=== PATIENT | male | born 1965 | race African-American/Black ===

== ENCOUNTER 2016-08-31 13:48 | Emergency (ER) | payer SELFPAY ==
[2016-08-31] MEDS ORDERED: NITROGLYCERIN 0.4 MG/TAB 25 TAB/BOTTLE SL PRN (14:09)
--- NOTE | 2016-08-31 14:18 | ER Document Report ---
[id number] LEVEL OF CONSCIOUSNESS Notes: The patient is a 50-year-old male, past medical history hypertension, NIDDM, presents by EMS after he was tired earlier today and his girlfriend checked his blood sugar. His Accu-Chek read 500 and the girlfriend gave him 60 units of her insulin. She called 911. When the patient arrived to the ambulance, he began to have left-sided chest pain that is radiating to his left arm. He describes it as a pressure and he has never had this before. He denies nausea, vomiting, shortness of breath, fevers, back pain, leg swelling, rash or focal weakness. TRAVEL OUTSIDE OF THE [place] IN LAST 30 DAYS: No - Related Data Allergies/Adverse Reactions: No Known Allergies Allergy (Verified 10/05/15 09:57) Past Medical History - General Information source: Patient, Emergency Med Personnel - Social History Smoking Status: Current Every Day Smoker Family History: Reviewed & Not Pertinent - Past Medical History Cardiac Medical History: Reports: Hx Hypertension Endocrine Medical History: Reports: Hx Diabetes Mellitus Type 2 - Immunizations Hx Diphtheria, Pertussis, Tetanus Vaccination: No Review of Systems - Review of Systems Notes: REVIEW OF SYSTEMS: CONSTITUTIONAL: Denies fever, chills, or sweats. Denies recent illness. EENT: Denies eye, ear, throat, or mouth pain or symptoms. Denies nasal or sinus congestion. CARDIOVASCULAR: Chest pain, -syncope RESPIRATORY: Denies cough, cold, or chest congestion. Denies shortness of breath, difficulty breathing, or wheezing. GASTROINTESTINAL: Denies abdominal pain. Denies nausea, vomiting, or diarrhea. Denies constipation. GENITOURINARY: Denies difficulty urinating, painful urination, burning, frequency, or blood in urine. MUSCULOSKELETAL: Denies neck or back pain or joint pain or swelling. SKIN: Denies rash or skin lesions. HEMATOLOGIC: Denies easy bruising or bleeding. LYMPHATIC: Denies swollen, enlarged glands. NEUROLOGICAL: Denies altered mental status or loss of consciousness. Denies headache. Denies weakness or paralysis or loss of use of either side. Denies problems with gait or speech. Denies sensory or motor loss. PSYCHIATRIC: Denies anxiety or stress or depression. ALL OTHER SYSTEMS REVIEWED AND NEGATIVE. Physical Exam - Vital signs Vitals: Resp 10 L 08/31/16 14:01 BP 142/69, HR 88, RR 20, Pulse Ox 98%, BG 201 - Notes Notes: PHYSICAL EXAMINATION: GENERAL: In mild distress. HEAD: Atraumatic, normocephalic. EYES: Pupils equal round and reactive to light, extraocular movements intact, sclera anicteric, conjunctiva are normal. ENT: nares patent, oropharynx clear without exudates. Moist mucous membranes. NECK: Normal range of motion, supple without lymphadenopathy LUNGS: Breath sounds clear to auscultation bilaterally and equal. No wheezes rales or rhonchi. HEART: Regular rate and rhythm without murmurs ABDOMEN: Soft, nontender, normoactive bowel sounds. No guarding, no rebound. No masses appreciated. EXTREMITIES: Normal range of motion, no pitting or edema. No cyanosis. NEUROLOGICAL: Cranial nerves grossly intact. Normal speech, normal gait. Normal sensory, motor, and reflex exams. PSYCH: Normal mood, normal affect. SKIN: Warm, Dry, normal turgor, no rashes or lesions noted. Course - Re-evaluation Re-evalutation: Patient has [address] elevations in V2 and V3 with ST depression in lead 1 and T- wave changes in V5 and V6. No old EKG to compare. With multiple factors and concerning story, STEMI alert activated. Spoke to patient about risks and benefits of TPA and he consents to receive TPA. No contraindications at this time. Will transfer patient to [facility] for further evaluation and treatment with Interventional Cardiology. Spoke to the [facility] at [facility] and Dr. Christo Celeste has accepted patient. BG decreased from 500 to 200 to [address] patient on D5 gtt and continue Accu-Cheks every 15 minutes. Patient chest pain-free after TPA and on discharge out of the emergency room. - Vital Signs Vital signs: Temp Pulse Resp BP Pulse Ox 18 95/75 L 97 08/31/16 14:36 08/31/16 14:36 08/31/16 14:36 - Laboratory Result Diagrams: 08/31/16 14:10 08/31/16 14:10 Laboratory results interpreted by me: 08/31/16 08/31/16 08/31/16 14:10 14:10 14:10 RBC 6.41 H MCV 70 L MCH 23.1 L RDW 15.0 H PT Chloride 97 L Glucose 137 H POC Glucose Hemoglobin A1c % > 14.0 H Calcium 10.4 H AST 16 L 08/31/16 08/31/16 14:10 14:27 RBC MCV MCH RDW PT 11.1 L Chloride Glucose POC Glucose 147 H Hemoglobin A1c % Calcium AST - Diagnostic Test Radiology reviewed: Image reviewed, Reports reviewed Radiology results interpreted by me: NAD - EKG Interpretation by Me EKG shows normal: Sinus rhythm Rate: Normal Rhythm: NSR When compared to previous EKG there are: Previous EKG unavailable Additional EKG results interpreted by me: ST Elevations in V1-V3. Flipped T-waves in V5-V6. ST depression in I. Critical Care Note - Critical Care Note Total time excluding time spent on procedures (mins): 45 Discharge - Discharge Clinical Impression: STEMI (ST elevation myocardial infarction) Qualifiers: Involved coronary artery: other coronary artery Qualified Code(s): I21.29 - ST elevation (STEMI) myocardial infarction involving other sites Insulin overdose Qualifiers: Encounter type: initial encounter Injury intent: accidental or unintentional Qualified Code(s): T38.3X1A - Poisoning by insulin and oral hypoglycemic [ antidiabetic] drugs, accidental (unintentional), initial encounter Condition: Serious Disposition: [facility] Admitting Provider: Dr. Christo Celeste
[2016-08-31 14:24] LABS: HEMATOCRIT 44.6 % (37.9-51.0); HEMOGLOBIN 14.8 g/dL (13.5-17.0); HGB HCT DIFFERENCE -0.2; MEAN CORPUSCULAR HEMOGLOBIN 23.1 pg (27.0-33.4); MEAN CORPUSCULAR HGB CONC 33.2 g/dL (32.0-36.0); MEAN CORPUSCULAR VOLUME 70 fl (80-97); RED BLOOD COUNT 6.41 10^6/uL (4.35-5.55); WHITE BLOOD COUNT 10.3 10^3/uL (4.0-10.5)
[2016-08-31] MEDS ORDERED: DEXTROSE 5%-1/2 NORMAL SALINE 1,000 ML IV ONE (14:28)
[2016-08-31 14:40] LABS: PROTHROMBIN TIME 11.1 SEC (11.4-15.4)
[2016-08-31 14:41] LABS: PARTIAL THROMBOPLASTIN TIME 26.4 SEC (23.5-35.8)
[2016-08-31 14:43] VITALS: BP 95/75
[2016-08-31] MEDS ORDERED: ENOXAPARIN SODIUM INJ 150 MG/1 ML DISP.SYRIN SUBCUT SCH ×2 (14:45→22:00)
[2016-08-31 15:01] LABS: ALANINE AMINOTRANSFERASE 41 U/L (21-72); ALBUMIN 3.6 g/dL (3.5-5.0); ALKALINE PHOSPHATASE 113 U/L (38-126); ANION GAP 12 (5-19); ASPARTATE AMINO TRANSFERASE 16 U/L (17-59); BILIRUBIN,TOTAL 0.3 mg/dL (0.2-1.3); BLOOD UREA NITROGEN 12 mg/dL (7-20); CALCIUM 10.4 mg/dL (8.4-10.2); CARBON DIOXIDE 29 mmol/L (22-30); CHLORIDE 97 mmol/L (98-107); CREATINE KINASE 104 U/L (55-170); CREATININE RESULT 0.74 mg/dL (0.52-1.25); GLUCOSE 137 mg/dL (75-110); PHOSPHORUS 3.9 mg/dL (2.5-4.5); POTASSIUM 4.2 mmol/L (3.6-5.0); TOTAL PROTEIN 6.7 g/dL (6.3-8.2)
[2016-08-31 16:34] LABS: BASOPHILS % (MANUAL) 0 % (0-2); EOSINOPHILS % (MANUAL) 1 % (0-6); LYMPHOCYTES % (MANUAL) 45 % (13-45); TOTAL CELLS COUNTED 100
[2016-08-31 16:37] LABS: ANISOCYTOSIS SLIGHT; HYPOCHROMASIA 1+; MICROCYTOSIS 2+; SMUDGE CELLS PRESENT; TOXIC VACUOLATION PRESENT
[2016-08-31 16:38] LABS: PLATELET CLUMPS PRESENT
--- NOTE | 2016-08-31 17:34 | EKG REPORT ---
SEVERITY:- ABNORMAL ECG - SINUS RHYTHM NONSPECIFIC INTRAVENTRICULAR CONDUCTION DELAY PROBABLE LVH WITH SECONDARY REPOL ABNRM : Confirmed by: Malaika Blas 31-Aug-2016 17:34:06
--- NOTE | 2016-08-31 17:34 | EKG REPORT ---
SEVERITY:- ABNORMAL ECG - SINUS RHYTHM VENTRICULAR PREMATURE COMPLEX NONSPECIFIC T ABNORMALITIES, LATERAL LEADS BORDERLINE PROLONGED QT INTERVAL : Confirmed by: Malaika Blas 31-Aug-2016 17:34:24
--- NOTE | 2016-08-31 17:34 | EKG REPORT ---
SEVERITY:- ABNORMAL ECG - SINUS RHYTHM VENTRICULAR PREMATURE COMPLEX PROBABLE LEFT VENTRICULAR HYPERTROPHY ANTERIOR ST ELEVATION, PROBABLY DUE TO LVH : Confirmed by: Malaika Blas 31-Aug-2016 17:34:42
--- NOTE | 2016-08-31 17:36 | EKG REPORT ---
SEVERITY:- ABNORMAL ECG - SINUS RHYTHM NONSPECIFIC T ABNORMALITIES, LATERAL LEADS ST ELEVATION, CONSIDER ANTERIOR INJURY VS LVH : Confirmed by: Malaika Blas 31-Aug-2016 17:35:07
[2016-08-31] MEDS ORDERED: CLOPIDOGREL BISULFATE 300 MG TABLET ONE (18:11)
[2016-08-31] MEDS ORDERED: ENOXAPARIN SODIUM INJ 30 MG/0.3 ML DISP.SYRIN ONE (18:11)
[2016-08-31] MEDS ORDERED: NITROGLYCERIN 0.4 MG/TAB 25 TAB/BOTTLE ONE (18:11)
[2016-08-31] MEDS ORDERED: TENECTEPLASE INJ 50 MG KIT IV ONE (18:11)
[2016-08-31] MEDS ORDERED: ASPIRIN 81 MG TABLET, CHEWABLE ONE (18:11)
[2016-09-01] MEDS ORDERED: ASPIRIN 325 MG TABLET, ENT COATED PO SCH (10:00)
[2016-09-04 11:39] LABS: PATH REVIEW PATHOLOGIST REVIEWED
== END 2016-08-31 15:09 | disposition short-term general hospital (02) ==
LOC: ER 13:48
DX: T38.3X1A Poisoning by insulin and oral hypoglycemic [antidiabetic] drugs, accidental (unintentional), initial encounter (principal); I21.3 ST elevation (STEMI) myocardial infarction of unspecified site; E11.9 Type 2 diabetes mellitus without complications; I10 Essential (primary) hypertension; R07.89 Other chest pain; F17.200 Nicotine dependence, unspecified, uncomplicated
CPT/HCPCS: 93005 ×2; 99291; 96372; 96375; 96365; 36415; 82962; 82550; 84100; 85025; 85610; 85730; 80053; 84484; 83036; 71010; 93010; J3101; J3490; J1650

== ENCOUNTER → 2016-09-26 | Outpatient (CLI) | payer OTHER ==
[2016-09-26 08:28] LABS: ABSOLUTE BASOPHILS # (AUTO) 0.1 10^3/uL (0.0-0.2); ABSOLUTE EOSINOPHILS # (AUTO) 0.3 10^3/uL (0.0-0.6); ABSOLUTE LYMPHOCYTES (AUTO) 3.7 10^3/uL (0.5-4.7); ABSOLUTE MONOCYTES (AUTO) 0.5 10^3/uL (0.1-1.4); ABSOLUTE NEUT (AUTO) 4.6 10^3/uL (1.7-8.2); BASOPHILS % (AUTO) 0.6 % (0-2); EOSINOPHILS % (AUTO) 2.9 % (0-6); HEMATOCRIT 40.4 % (37.9-51.0); HGB HCT DIFFERENCE -1.4; LYMPHOCYTES % (AUTO) 40.8 % (13-45); MEAN CORPUSCULAR HEMOGLOBIN 22.4 pg (27.0-33.4); MEAN CORPUSCULAR HGB CONC 32.1 g/dL (32.0-36.0); MEAN CORPUSCULAR VOLUME 70 fl (80-97); MONOCYTES % (AUTO) 5.7 % (3-13); RED BLOOD COUNT 5.79 10^6/uL (4.35-5.55); WHITE BLOOD COUNT 9.1 10^3/uL (4.0-10.5)
[2016-09-26 08:45] LABS: ALANINE AMINOTRANSFERASE 25 U/L (21-72); ALBUMIN 3.9 g/dL (3.5-5.0); ALKALINE PHOSPHATASE 85 U/L (38-126); ANION GAP 11 (5-19); ASPARTATE AMINO TRANSFERASE 20 U/L (17-59); BILIRUBIN,TOTAL 0.6 mg/dL (0.2-1.3); BLOOD UREA NITROGEN 12 mg/dL (7-20); CALCIUM 9.9 mg/dL (8.4-10.2); CARBON DIOXIDE 28 mmol/L (22-30); CHLORIDE 104 mmol/L (98-107); CHOLESTEROL 140.92 mg/dL (0-200); Direct HDL 42 mg/dL (>40); GLUCOSE 110 mg/dL (75-110); POTASSIUM 4.5 mmol/L (3.6-5.0); SODIUM 142.9 mmol/L (137-145); TOTAL PROTEIN 6.8 g/dL (6.3-8.2); TRIGLYCERIDES 57 mg/dL (<150)
[2016-09-26 08:56] LABS: DIRECT LDL 87 mg/dL (<100)
--- NOTE | 2016-09-26 09:13 | EKG REPORT ---
SEVERITY:- ABNORMAL ECG - SINUS RHYTHM NONSPECIFIC INTRAVENTRICULAR CONDUCTION DELAY : Confirmed by: Malaika Blas 26-Sep-2016 09:12:27
== END ==
LOC: OD 07:03
DX: I10 Essential (primary) hypertension (principal); E11.9 Type 2 diabetes mellitus without complications
CPT/HCPCS: 36415; 80053; 80061; 83036; 84153; 84443; 85025; 93005; 93010

== ENCOUNTER 2017-10-11 17:16 | Emergency (ER) | payer OTHER ==
[2017-10-11 17:36] VITALS: BP 154/77
== END 2017-10-11 18:45 | disposition left against medical advice (07) ==
LOC: ER 17:16
DX: Z53.21 Procedure and treatment not carried out due to patient leaving prior to being seen by health care provider (principal); R51 Headache

== ENCOUNTER 2017-10-16 19:24 | Emergency (ER) | payer SELFPAY ==
--- NOTE | 2017-10-16 19:53 | RADIOLOGY REPORT (SQ) ---
EXAM DESCRIPTION: CT HEAD WITHOUT COMPLETED DATE/TIME: 10/16/2017 7:40 pm REASON FOR STUDY: STROKE ALERT COMPARISON: 04/03/2008 TECHNIQUE: Axial images acquired through the brain without intravenous contrast. Images reviewed wi th bone, brain and subdural windows. Images stored on PACS. All CT scanners at this facility use dose modulation, iterative reconstruction, and/or weight based d osing when appropriate to reduce radiation dose to as low as reasonably achievable (ALARA). [facility]: Dose Right [facility]: CareDose [facility]: Dose Right [facility]: Teradose 4D [facility]: [employer] RADIATION DOSE: mGy. LIMITATIONS: None. FINDINGS: VENTRICLES: Normal. CEREBRUM: No masses. No hemorrhage. No midline shift. Areas of low density in the white matter mos t likely due to chronic micro-vascular ischemic change, greatest in the right posterior temporal nolan on. CEREBELLUM: No masses. No hemorrhage. No alteration of density. No evidence for acute infarction. EXTRAAXIAL SPACES: Age-related involutional change. No fluid collections. No masses. ORBITS AND GLOBE: No intra- or extraconal masses. Normal contour of globe without masses. CALVARIUM: No fracture. PARANASAL SINUSES: No fluid or mucosal thickening. SOFT TISSUES: No mass or hematoma. OTHER: No other significant finding. IMPRESSION: No intracranial hemorrhage or mass effect.Areas of low density in the white matter most likely due to chronic micro-vascular ischemic change, greatest in the right posterior temporal region . EVIDENCE OF ACUTE STROKE: NO. TECHNICAL DOCUMENTATION: JOB ID: [id number] [place]-72 Quality ID # [id number]: Final reports with documentation of one or more dose reduction techniques (e.g., Au tomated exposure control, adjustment of the mA and/or kV according to patient size, use of iterative reconstruction technique) 2010 [employer]- All Rights Reserved
--- NOTE | 2017-10-16 19:53 | RADIOLOGY REPORT (SQ) ---
EXAM DESCRIPTION: CHEST SINGLE VIEW COMPLETED DATE/TIME: 10/16/2017 7:35 pm REASON FOR STUDY: STROKE ALERT COMPARISON: 08/31/2016 EXAM PARAMETERS: NUMBER OF VIEWS: One view. TECHNIQUE: Single frontal radiographic view of the chest acquired. RADIATION DOSE: NA LIMITATIONS: None. FINDINGS: LUNGS AND PLEURA: No opacities, masses or pneumothorax. No pleural effusion. MEDIASTINUM AND HILAR STRUCTURES: No masses. Contour normal. HEART AND VASCULAR STRUCTURES: Heart normal in size. Normal vasculature. BONES: No acute findings. HARDWARE: None in the chest. OTHER: No other significant finding. IMPRESSION: NO ACUTE RADIOGRAPHIC FINDING IN THE CHEST. TECHNICAL DOCUMENTATION: JOB ID: [id number] [place]-72 2010 [employer]- All Rights Reserved
[2017-10-16] MEDS ORDERED: KETOROLAC TROMETHAMINE INJ/PF 30 MG/1 ML SDV IV ONE (20:03)
[2017-10-16] MEDS ORDERED: DIPHENHYDRAMINE HCL 50 MG/ML VIAL IV ONE (20:03)
[2017-10-16] MEDS ORDERED: METOCLOPRAMIDE HCL INJ/PF 10 MG/2 ML SDV IV ONE (20:03)
[2017-10-16] MEDS ORDERED: ASPIRIN 325 MG TABLET PO ONE (20:03)
--- NOTE | 2017-10-16 20:06 | ER Document Report ---
ED Neuro Symptoms/Deficit - General Chief Complaint: Headache Stated Complaint: HEADACHE Time Seen by Provider: 10/16/17 19:48 Notes: The patient is a 51-year-old male, past medical history CAD with stents, presents with 3 days of intermittent left-sided headaches that are located behind his eyes that last about 3 hours and then will resolve. During some of these episodes, he will have mild left leg weakness that resolved after his headache improves. Today, he began to have his usual headache earlier today and then left arm and leg weakness at 1645, but this resolved prior to arrival. A concerned family member called 911. Patient denies current weakness, numbness, tingling, fevers, blurry vision, sudden onset of headache, neck pain, chest pain, SOB or back pain. TRAVEL OUTSIDE OF THE [place] IN LAST 30 DAYS: No - Related Data Allergies/Adverse Reactions: No Known Allergies Allergy (Verified 10/11/17 17:20) Past Medical History - General Information source: Patient - Social History Smoking Status: Unknown if Ever Smoked Family History: Reviewed & Not Pertinent - Past Medical History Cardiac Medical History: Reports: Hx Hypertension Endocrine Medical History: Reports: Hx Diabetes Mellitus Type 2 - Immunizations Hx Diphtheria, Pertussis, Tetanus Vaccination: No Review of Systems - Review of Systems Notes: REVIEW OF SYSTEMS: CONSTITUTIONAL: -fevers, -chills EENT: -eye pain, -difficulty swallowing, -nasal congestion CARDIOVASCULAR: -chest pain, -syncope. RESPIRATORY: -cough, -SOB GASTROINTESTINAL: -abdominal pain, -nausea, -vomiting, -diarrhea GENITOURINARY: -dysuria, -hematuria MUSCULOSKELETAL: -back pain, -neck pain SKIN: -rash or skin lesions. HEMATOLOGIC: -easy bruising or bleeding. LYMPHATIC: -swollen, enlarged glands. NEUROLOGICAL: -altered mental status or loss of consciousness, +headache, + transient left arm and leg weakness PSYCHIATRIC: -anxiety, -depression. ALL OTHER SYSTEMS REVIEWED AND NEGATIVE. Physical Exam - Vital signs Vitals: Resp Pulse Ox 15 98 10/16/17 19:47 10/16/17 19:47 - Notes Notes: PHYSICAL EXAMINATION: GENERAL: Well-appearing, well-nourished and in no acute distress. HEAD: Atraumatic, normocephalic. EYES: Pupils equal round and reactive to light, extraocular movements intact, sclera anicteric, conjunctiva are normal. ENT: nares patent, oropharynx clear without exudates. Moist mucous membranes. NECK: Normal range of motion, supple without lymphadenopathy LUNGS: Breath sounds clear to auscultation bilaterally and equal. No wheezes rales or rhonchi. HEART: Regular rate and rhythm without murmurs ABDOMEN: Soft, nontender, normoactive bowel sounds. No guarding, no rebound. No masses appreciated. EXTREMITIES: Normal range of motion, no pitting or edema. No cyanosis. NEUROLOGICAL: Cranial nerves grossly intact. Normal speech, normal gait. Normal sensory and motor exams. 5/5 in all 4 extremities. PSYCH: Normal mood, normal affect. SKIN: Warm, Dry, normal turgor, no rashes or lesions noted. Course - Re-evaluation Re-evalutation: Patient with several days of a left-sided headache and 3 hours of left arm and leg weakness that resolved on arrival to the ER. Patient is not a TPA candidate due to rapidly resolving symptoms. CT head obtained, which did not show any acute abnormalities, but did show evidence of old chronic insults. Attempted to obtain a MRI to assess for the presence of a TIA or to see if this is just a complex migraine, but patient refused MRI. ABCD2 score is 2, so he is safe for outpatient work-up. His headache slightly improved after medications and he is requesting discharge. With the intermittent headaches that are associated with his left arm and leg weakness, suspect a complex migraine. Instructed him to follow-up with his PMD and [facility]uerologist for further evaulation. - Vital Signs Vital signs: Temp Pulse Resp BP Pulse Ox 98.3 F 97 16 126/75 H 100 10/16/17 23:31 10/16/17 23:31 10/16/17 23:31 10/16/17 23:31 10/16/17 23:31 - Laboratory Result Diagrams: 10/16/17 19:02 10/16/17 19:02 Laboratory results interpreted by me: 10/16/17 10/16/17 19:02 19:02 Hgb 12.5 L MCV 72 L MCH 23.6 L RDW 15.9 H Seg Neutrophils % 38.2 L Lymphocytes % 52.6 H Absolute Lymphocytes 4.8 H Creatine Kinase 202 H - Diagnostic Test Radiology reviewed: Image reviewed, Reports reviewed Radiology results interpreted by me: CT Head: NAD MRI Head: Discharge - Discharge Clinical Impression: Headache Qualifiers: Headache type: unspecified Headache chronicity pattern: chronic headache Intractability: not intractable Qualified Code(s): R51 - Headache Condition: Stable Disposition: HOME, SELF-CARE Additional Instructions: HEADACHE: The physician does not feel that the headache you are experiencing has a serious underlying cause. Most headaches are due to emotional stress, with resultant muscle tension (tension headache). Occasionally, headaches are secondary to changes in the blood vessels of the scalp (vascular headache and migraine headache). Sometimes, a headache is the first symptom of another developing illness, such as a viral infection. You have no evidence of stroke, bleeding, meningitis, or other serious cause of your headache. The treatment of headaches varies with the severity and cause of the pain. Not all headaches need pain shots. In fact, there is evidence that using narcotics for headaches may make them worse in the long run. The physician will determine the therapy that's in your best interest. If you develop a fever, if the headache is different from any you've previously experienced, or if the headache progressively worsens, then call your physician at once or go to the emergency room. INTRAVENOUS COMPAZINE FOR HEADACHE: You have received therapy for headaches, using intravenous Compazine. This treatment is dramatically successful in relieving the headache in about 50 percent of cases. When it works, it provides a rapid method of eliminating the headache without resorting to narcotics (and the problems associated with them). Most patients still feel fully alert after the Compazine, but others may be slightly drowsy. It's best not to drive or work with machinery for six to eight hours. Do not take alcohol or other medication unless you discuss it with the doctor. If you develop tightness and spasms in your muscles, especially the neck and tongue, you should return. This is a side effect which can be treated. TORADOL INJECTION: You have been given an injection of ketorolac tromethamine (Toradol). This is an excellent, safe drug for pain control. It also has potent antiinflammatory action. You should have significant pain relief within about one hour. Toradol is not addicting and is non-sedating. It does not interfere with driving or work. Call or return if you develop itching, hives, shortness of breath, or rash. PAIN MEDICATION INJECTION: You have received an injection of a pain medication. You should experience significant pain relief within 45 minutes. This drug is a narcotic - - it will impair your judgement, slow your reaction time and make you sleepy ( as well as relieve your pain). Narcotics also can cause nausea. You should not drive, work with machinery, or perform any task requiring mental alertness until all effects of the medication are gone -- six to eight hours. Do not take any alcohol, or sedatives, and do not take any other medication without checking with your physician. ORAL NARCOTIC MEDICATION: You have been given a prescription for pain control. This medication is a narcotic. It's best taken with food, as nausea can result if taken on an empty stomach. Don't operate machinery or drive within six hours of taking this medication. Do not combine this medicine with alcohol, or with any medication which can cause sedation (such as cold tablets or sleeping pills) unless you get permission from the physician. Narcotics tend to cause constipation. If possible, drink plenty of fluids and eat a diet high in fiber and fruits. Please be aware that prescription narcotics also have the potential for abuse. People become addicted to these medications because of the general sense of wellbeing that they induce. This feeling along with a significant reduction in tension, anxiety, and aggression provides a stimulating seductive quality to these drugs. Once your pain is under control, we encourage you to discard your unused narcotics. FOLLOW-UP CARE: If you have been referred to a physician for follow-up care, call the physician s office for an appointment as you were instructed or within the next two days. If you experience worsening or a significant change in your symptoms, notify the physician immediately or return to the Emergency Department at any time for re-evaluation. Prescriptions: Butalb/Acetaminophen/Caffeine [Fioricet 50-300-40 mg Capsule] 1 cap PO Q4 PRN # 14 cap PRN Reason: Referrals: MAY ALDRIDGE MD [ACTIVE STAFF] - Follow up as needed
[2017-10-16 20:09] LABS: ABSOLUTE BASOPHILS # (AUTO) 0.1 10^3/uL (0.0-0.2); ABSOLUTE EOSINOPHILS # (AUTO) 0.2 10^3/uL (0.0-0.6); ABSOLUTE LYMPHOCYTES (AUTO) 4.8 10^3/uL (0.5-4.7); ABSOLUTE MONOCYTES (AUTO) 0.6 10^3/uL (0.1-1.4); ABSOLUTE NEUT (AUTO) 3.4 10^3/uL (1.7-8.2); BASOPHILS % (AUTO) 0.8 % (0-2); EOSINOPHILS % (AUTO) 1.8 % (0-6); HEMATOCRIT 38.2 % (37.9-51.0); HEMOGLOBIN 12.5 g/dL (13.5-17.0); LYMPHOCYTES % (AUTO) 52.6 % (13-45); MEAN CORPUSCULAR HEMOGLOBIN 23.6 pg (27.0-33.4); MEAN CORPUSCULAR HGB CONC 32.7 g/dL (32.0-36.0); MEAN CORPUSCULAR VOLUME 72 fl (80-97); MONOCYTES % (AUTO) 6.6 % (3-13); PLATELET COUNT 278 10^3/uL (150-450); RED BLOOD COUNT 5.31 10^6/uL (4.35-5.55); RED CELL DISTRIBUTION WIDTH 15.9 % (11.5-14.0); SEGMENTED NEUTROPHILS % (AUTO) 38.2 % (42-78); TOTAL CELLS COUNTED % (AUTO) 100 %
[2017-10-16 20:11] LABS: INTERNATIONAL RATION (INR) 0.84
[2017-10-16 20:12] LABS: PARTIAL THROMBOPLASTIN TIME 29.8 SEC (23.5-35.8)
[2017-10-16 20:15] LABS: PROTHROMBIN TIME 12.2 SEC (11.4-15.4)
[2017-10-16 20:16] LABS: ALANINE AMINOTRANSFERASE 45 U/L (21-72); ALBUMIN 4.1 g/dL (3.5-5.0); ALKALINE PHOSPHATASE 73 U/L (38-126); ANION GAP 12 (5-19); ASPARTATE AMINO TRANSFERASE 28 U/L (17-59); BILIRUBIN,DIRECT 0.1 mg/dL (0.0-0.4); BILIRUBIN,TOTAL 0.3 mg/dL (0.2-1.3); BLOOD UREA NITROGEN 15 mg/dL (7-20); CARBON DIOXIDE 26 mmol/L (22-30); CHLORIDE 104 mmol/L (98-107); CREATINE KINASE 202 U/L (55-170); GLUCOSE 103 mg/dL (75-110); POTASSIUM 4.3 mmol/L (3.6-5.0); SODIUM 142.2 mmol/L (137-145); TOTAL PROTEIN 6.4 g/dL (6.3-8.2)
[2017-10-16 20:28] LABS: CREATINE KINASE MB 2.06 ng/mL (<4.55); TROPONIN I 0.026 ng/mL
[2017-10-16] MEDS ORDERED: HALOPERIDOL LACTATE INJ 5 MG/1 ML VIAL IV ONE (21:00)
[2017-10-16] MEDS ORDERED: BUTALB/ACETAMINOPHEN/CAFFEINE 1 TAB EACH PO ONE (23:10)
[2017-10-16 23:34] VITALS: BP 126/75
--- NOTE | 2017-10-17 07:59 | EKG REPORT ---
SEVERITY:- ABNORMAL ECG - SINUS RHYTHM NONSPECIFIC INTRAVENTRICULAR CONDUCTION DELAY NONSPECIFIC ST-T CHANGES IN LATERAL LEADS : Confirmed by: Noel Jean MD 17-Oct-2017 07:58:28
== END 2017-10-16 23:43 | disposition home or self-care (01) ==
LOC: ER 19:24
DX: R51 Headache (principal); R53.1 Weakness; I10 Essential (primary) hypertension; I25.10 Atherosclerotic heart disease of native coronary artery without angina pectoris; E11.9 Type 2 diabetes mellitus without complications; Z95.5 Presence of coronary angioplasty implant and graft
CPT/HCPCS: 93005; 99285; 96374; 96375; 36415; 82553; 82550; 85025; 85610; 85730; 80053; 84484; 71045; 70450; 93010; J3490; J1200; J1630; J1885; J2765

== ENCOUNTER 2017-11-11 08:05 | Emergency (ER) | payer SELFPAY ==
[2017-11-11] MEDS ORDERED: ASPIRIN 81 MG TABLET, CHEWABLE PO ONE (09:12)
[2017-11-11 09:16] VITALS: BP 155/90
[2017-11-11 09:24] LABS: ABSOLUTE BASOPHILS # (AUTO) 0.1 10^3/uL (0.0-0.2); ABSOLUTE EOSINOPHILS # (AUTO) 0.2 10^3/uL (0.0-0.6); ABSOLUTE LYMPHOCYTES (AUTO) 3.3 10^3/uL (0.5-4.7); ABSOLUTE MONOCYTES (AUTO) 0.6 10^3/uL (0.1-1.4); ABSOLUTE NEUT (AUTO) 5.4 10^3/uL (1.7-8.2); EOSINOPHILS % (AUTO) 1.7 % (0-6); HEMATOCRIT 40.8 % (37.9-51.0); HEMOGLOBIN 13.3 g/dL (13.5-17.0); LYMPHOCYTES % (AUTO) 34.5 % (13-45); MEAN CORPUSCULAR HEMOGLOBIN 23.5 pg (27.0-33.4); MEAN CORPUSCULAR HGB CONC 32.6 g/dL (32.0-36.0); MEAN CORPUSCULAR VOLUME 72 fl (80-97); PLATELET COUNT 312 10^3/uL (150-450); RED BLOOD COUNT 5.65 10^6/uL (4.35-5.55); RED CELL DISTRIBUTION WIDTH 15.9 % (11.5-14.0); SEGMENTED NEUTROPHILS % (AUTO) 56.8 % (42-78); TOTAL CELLS COUNTED % (AUTO) 100 %; WHITE BLOOD COUNT 9.4 10^3/uL (4.0-10.5)
--- NOTE | 2017-11-11 09:46 | RADIOLOGY REPORT (SQ) ---
EXAM DESCRIPTION: CHEST SINGLE VIEW COMPLETED DATE/TIME: 11/11/2017 9:38 am REASON FOR STUDY: bed 16 cp COMPARISON: Chest films 10/16/2017, 08/31/2016, 08/29/2010 EXAM PARAMETERS: NUMBER OF VIEWS: One view. TECHNIQUE: Single frontal radiographic view of the chest acquired. RADIATION DOSE: NA LIMITATIONS: AP portable lordotic film FINDINGS: LUNGS AND PLEURA: No opacities, masses or pneumothorax. No pleural effusion. MEDIASTINUM AND HILAR STRUCTURES: No masses. Contour normal. HEART AND VASCULAR STRUCTURES: Heart normal in size. Normal vasculature. BONES: No acute findings. HARDWARE: None in the chest. OTHER: No other significant finding. IMPRESSION: NO ACUTE RADIOGRAPHIC FINDING IN THE CHEST. TECHNICAL DOCUMENTATION: JOB ID: [id number] [employer]- All Rights Reserved Reading location - IP/workstation name: [email or web address]
[2017-11-11] MEDS ORDERED: KETOROLAC TROMETHAMINE INJ/PF 30 MG/1 ML SDV IV ONE (09:47)
[2017-11-11] MEDS ORDERED: PROCHLORPERAZINE EDISYLATE INJ 10 MG/2 ML VIAL IV ONE (09:47)
[2017-11-11] MEDS ORDERED: ONDANSETRON HCL INJ/PF 4 MG/2 ML SDV IV ONE (09:57)
--- NOTE | 2017-11-11 10:01 | EKG REPORT ---
SEVERITY:- ABNORMAL ECG - SINUS RHYTHM NONSPECIFIC T ABNORMALITIES, LATERAL LEADS : Confirmed by: Malaika Blas 11-Nov-2017 10:01:02
[2017-11-11 10:09] LABS: ALANINE AMINOTRANSFERASE 32 U/L (21-72); ALBUMIN 3.9 g/dL (3.5-5.0); ALKALINE PHOSPHATASE 81 U/L (38-126); ANION GAP 12 (5-19); ASPARTATE AMINO TRANSFERASE 21 U/L (17-59); BILIRUBIN,DIRECT 0.1 mg/dL (0.0-0.4); BILIRUBIN,TOTAL 0.5 mg/dL (0.2-1.3); BLOOD UREA NITROGEN 11 mg/dL (7-20); CALCIUM 10.1 mg/dL (8.4-10.2); CARBON DIOXIDE 25 mmol/L (22-30); CHLORIDE 102 mmol/L (98-107); CREATINE KINASE 141 U/L (55-170); GLUCOSE 130 mg/dL (75-110); POTASSIUM 4.2 mmol/L (3.6-5.0); SODIUM 139.4 mmol/L (137-145); TOTAL PROTEIN 6.4 g/dL (6.3-8.2)
[2017-11-11 10:22] LABS: CREATINE KINASE MB 1.79 ng/mL (<4.55); TROPONIN I 0.024 ng/mL
--- NOTE | 2017-11-11 13:56 | RADIOLOGY REPORT (SQ) ---
EXAM DESCRIPTION: CT ABD/PELVIS WITH IV ORAL COMPLETED DATE/TIME: 11/11/2017 1:20 pm REASON FOR STUDY: epigastric pain, unable to have bm COMPARISON: AP chest 11/11/2017 TECHNIQUE: CT scan of the abdomen and pelvis performed using helical scanning technique with dynamic intravenous contrast injection. Patient drank oral contrast. Images reviewed with lung, soft tissue , and bone windows. Reconstructed coronal and sagittal MPR images reviewed. Delayed images for evalua tion of the urinary system also acquired. All images stored on PACS. All CT scanners at this facility use dose modulation, iterative reconstruction, and/or weight based d osing when appropriate to reduce radiation dose to as low as reasonably achievable (ALARA). [facility]: Dose Right [facility]: CareDose [facility]: Dose Right [facility]: Teradose 4D [facility]: [employer] CONTRAST TYPE AND DOSE: contrast/concentration: Isovue 370.00 mg/ml; Total Contrast Delivered: 100.0 ml; Total Saline Delivered: 62.0 ml RENAL FUNCTION: Creatinine 0.6 RADIATION DOSE: CT Rad equipment meets quality standard of care and radiation dose reduction techniq ues were employed. CTDIvol: 20.9 - 21.1 mGy. DLP: 2456 mGy-cm.. LIMITATIONS: None. FINDINGS: LOWER CHEST: No significant findings. No nodules or infiltrates. LIVER: Normal size. No masses. No dilated ducts. SPLEEN: Normal size. No focal lesions. PANCREAS: No masses. No significant calcifications. No adjacent inflammation or peripancreatic fluid collections. Pancreatic duct not dilated. GALLBLADDER: No identified stones by CT criteria. No inflammatory changes to suggest cholecystitis. ADRENAL GLANDS: No significant masses or asymmetry. RIGHT KIDNEY AND URETER: No solid masses. No significant calcifications. No hydronephrosis or hyd roureter. LEFT KIDNEY AND URETER: No solid masses. No significant calcifications. No hydronephrosis or hydr oureter. AORTA AND VESSELS: No aneurysm. No dissection. Renal arteries, SMA, celiac without stenosis. RETROPERITONEUM: No retroperitoneal adenopathy, hemorrhage or masses. BOWEL AND PERITONEAL CAVITY: Patient drank oral contrast. No CT evidence of bowel obstruction. No constipation. No masses or inflammatory changes. No free fluid or peritoneal masses. APPENDIX: Normal. PELVIS: No mass. No free fluid. Normal bladder. ABDOMINAL WALL: Fat containing umbilical hernia BONES: No significant or acute findings. OTHER: No other significant finding. IMPRESSION: NO SIGNIFICANT OR ACUTE FINDING IN THE ABDOMEN OR PELVIS ON CT SCAN WITH IV CONTRAST. TECHNICAL DOCUMENTATION: JOB ID: [id number] Quality ID # [id number]: Final reports with documentation of one or more dose reduction techniques (e.g., Au tomated exposure control, adjustment of the mA and/or kV according to patient size, use of iterative reconstruction technique) 2010 [employer]- All Rights Reserved Reading location - IP/workstation name: [email or web address]
[2017-11-11] MEDS ORDERED: METOCLOPRAMIDE HCL ORAL SOLN 10 MG/10 ML UDCUP PO ONE (14:21)
[2017-11-11] MEDS ORDERED: LIDOCAINE 2% VISCOUS SOLN 20 ML UDCUP PO ONE (14:21)
[2017-11-11] MEDS ORDERED: MAG HYDROX/AL HYDROX/SIMETH SUSP 30 ML UDCUP PO ONE (14:21)
--- NOTE | 2017-11-11 15:52 | ER Document Report ---
ED General - General Chief Complaint: Chest Pain Stated Complaint: CHEST PAIN Time Seen by Provider: 11/11/17 09:45 Mode of Arrival: Ambulatory Information source: Patient Notes: Patient is a 51-year-old male who presents to the ER today for upper abdominal pain in the middle of his abdomen 3 days. Patient admits to nausea but no vomiting. He admits to being constipated and has not been able to have a bowel movement in more than 4 days, until a small bowel movement this morning, did not see any blood in it. He does have a history of 2 heart attacks, last one about 6 months ago. Patient has stents placed from this. Patient denies any shortness of breath with his symptoms. Admits to acid reflux and heartburn with his symptoms. Denies ever having any surgeries on his abdomen. TRAVEL OUTSIDE OF THE [place] IN LAST 30 DAYS: No - Related Data Allergies/Adverse Reactions: No Known Allergies Allergy (Verified 11/11/17 08:06) Past Medical History - General Information source: Patient - Social History Smoking Status: Current Every Day Smoker Frequency of alcohol use: Rare Drug Abuse: Marijuana Family History: Reviewed & Not Pertinent Patient has suicidal ideation: No Patient has homicidal ideation: No - Past Medical History Cardiac Medical History: Reports: Hx Heart Attack - x2, Hx Hypertension Endocrine Medical History: Reports: Hx Diabetes Mellitus Type 1, Hx Diabetes Mellitus Type 2 Renal/ Medical History: Denies: Hx Peritoneal Dialysis - Immunizations Hx Diphtheria, Pertussis, Tetanus Vaccination: No Review of Systems - Review of Systems Constitutional: No symptoms reported EENT: No symptoms reported Cardiovascular: See HPI Respiratory: No symptoms reported Gastrointestinal: See HPI Genitourinary: No symptoms reported Male Genitourinary: No symptoms reported Musculoskeletal: No symptoms reported Skin: No symptoms reported Hematologic/Lymphatic: No symptoms reported Neurological/Psychological: No symptoms reported Physical Exam - Vital signs Vitals: Temp Pulse Resp BP Pulse Ox 98.3 F 77 20 142/86 H 97 11/11/17 08:18 11/11/17 08:18 11/11/17 08:18 11/11/17 08:18 11/11/17 08:18 - Notes Notes: PHYSICAL EXAMINATION: GENERAL: Well-appearing and in no acute distress. HEAD: Atraumatic, normocephalic. EYES: Pupils equal round and reactive to light, extraocular movements intact, sclera anicteric, conjunctiva are normal. ENT: ear canals without erythema or foreign body, TMs pearly chung with good bony landmarks, nares patent, oropharynx clear without exudates. Moist mucous membranes. NECK: Normal range of motion, supple without lymphadenopathy LUNGS: CTAB and equal. No wheezes rales or rhonchi. HEART: Regular rate and rhythm without murmurs ABDOMEN: Soft, epigastric tenderness. No guarding, no rebound BACK: no vertebral tenderness, normal ROM GI/: no CVA tenderness EXTREMITIES: Normal range of motion, no pitting edema. No cyanosis. NEUROLOGICAL: Cranial nerves grossly intact. Normal sensory/motor exams. PSYCH: Normal mood, normal affect. SKIN: Warm, Dry, normal turgor, no rashes or lesions noted Course - Re-evaluation Re-evalutation: 11/12/17 20:07 Lab work is unremarkable today including 2 sets of negative troponins. Patient feels 100% better after GI cocktail. CT of the abdomen with IV contrast negative for any acute pathology. EKG reveals a normal sinus rhythm without evidence of ischemia. Patient will go home with Carafate and Prilosec. - Vital Signs Vital signs: Temp Pulse Resp BP Pulse Ox 98.3 F 77 18 155/90 H 95 11/11/17 08:18 11/11/17 08:18 11/11/17 14:00 11/11/17 09:01 11/11/17 14:00 - Laboratory Result Diagrams: 11/11/17 09:00 11/11/17 09:36 Laboratory results interpreted by me: 11/11/17 11/11/17 09:00 09:36 RBC 5.65 H Hgb 13.3 L MCV 72 L MCH 23.5 L RDW 15.9 H Glucose 130 H Discharge - Discharge Clinical Impression: Epigastric pain N&V (nausea and vomiting) Qualifiers: Vomiting type: unspecified Vomiting Intractability: non-intractable Qualified Code(s): R11.2 - Nausea with vomiting, unspecified Condition: Stable Disposition: HOME, SELF-CARE Additional Instructions: Return immediately for any new or worsening symptoms. Follow up with primary care provider, call tomorrow to make followup appointment. Prescriptions: Omeprazole Magnesium [Prilosec Otc] 20 mg PO BID #40 tablet. Polyethylene Glycol 3350 [Miralax] 119 gm PO DAILY #1 powder Sucralfate [Carafate 1 gm Tablet] 1 gm PO ACHS #40 tablet
== END 2017-11-11 16:20 | disposition home or self-care (01) ==
LOC: ER 08:05
DX: K21.9 Gastro-esophageal reflux disease without esophagitis (principal); R10.13 Epigastric pain; R11.2 Nausea with vomiting, unspecified; F17.200 Nicotine dependence, unspecified, uncomplicated; F12.10 Cannabis abuse, uncomplicated; I10 Essential (primary) hypertension; E11.9 Type 2 diabetes mellitus without complications; I25.2 Old myocardial infarction; Z95.5 Presence of coronary angioplasty implant and graft
CPT/HCPCS: 93005; 99284; 36415; 82553; 82550; 85025; 80053; 84484; 71045; 74177; 93010; J2405

== ENCOUNTER 2018-03-10 08:53 | Emergency (ER) | payer SELFPAY ==
[2018-03-10] MEDS ORDERED: NORMAL SALINE 1000 ML 1,000 ML IV ONE (09:49)
[2018-03-10] MEDS ORDERED: MECLIZINE HCL 25 MG TABLET PO ONE (09:49)
--- NOTE | 2018-03-10 09:54 | ER Document Report ---
ED General - General Chief Complaint: General Weakness Stated Complaint: WEAKNESS Time Seen by Provider: 03/10/18 09:21 TRAVEL OUTSIDE OF THE [place] IN LAST 30 DAYS: No - HPI Notes: Patient is a 52-year-old male with a history of hypertension and insulin- dependent diabetes who presents to the ED complaining of nasal congestion/ discharge, postnasal drip, dry nonproductive cough, and intermittent dizziness 1-2 days. Patient states that his dizziness has since improved. Patient states that he has felt some generalized weakness without unilaterality. Patient does report a previous CVA about 3 months ago as well as a heart attack in the last year and a half. Patient states that his symptoms do not mimic that of when he had a CVA in the past. Patient states that he is eating and drinking without any difficulties. He has been urinating normally and having normal bowel movements. Patient states that he has been out of his insulin and has been having to use and neighbors insulin. Patient states that he has noticed his sugars being higher than normal. Patient states that he also feels dizziness when his sugars get too high. Denies any drug allergies. Denies any headache, fever, head injury, neck pain, changes in vision/speech/mentation/ hearing, sore throat, chest pain, palpitations, syncope, shortness of breath, wheeze, dyspnea, abdominal pain, nausea/vomiting/diarrhea, urinary retention, dysuria, hematuria, loss of control of bowel or bladder, numbness/tingling, saddle anesthesia, muscle paralysis/weakness, or rash. - Related Data Allergies/Adverse Reactions: No Known Allergies Allergy (Verified 11/11/17 08:06) Past Medical History - Social History Smoking Status: Unknown if Ever Smoked Family History: Reviewed & Not Pertinent Patient has suicidal ideation: No Patient has homicidal ideation: No - Past Medical History Cardiac Medical History: Reports: Hx Heart Attack - x2, Hx Hypertension Endocrine Medical History: Reports: Hx Diabetes Mellitus Type 1, Hx Diabetes Mellitus Type 2 Renal/ Medical History: Denies: Hx Peritoneal Dialysis - Immunizations Hx Diphtheria, Pertussis, Tetanus Vaccination: No Review of Systems - Review of Systems -: Yes All other systems reviewed and negative Physical Exam - Vital signs Vitals: Temp Pulse Resp BP Pulse Ox 97.6 F 68 18 164/87 H 98 03/10/18 08:57 03/10/18 08:57 03/10/18 08:57 03/10/18 08:57 03/10/18 08:57 - Notes Notes: PHYSICAL EXAMINATION: GENERAL: Well-appearing, well-nourished and in no acute distress. A&Ox4. Answers questions appropriately. HEAD: Atraumatic, normocephalic. EYES: Pupils equal round and reactive to light, extraocular movements intact, sclera anicteric, conjunctiva are normal. No nystagmus. Vis cain intact. ENT: EAC clear b/l. TM's intact b/l without erythema, fluid, or perforation. Nares patent and with clear discharge. oropharynx clear without exudates. No tonsilar hypertrophy or erythema. Moist mucous membranes. No sinus tenderness. NECK: Normal range of motion, supple without lymphadenopathy. No rigidity. No midline tenderness. LUNGS: Breath sounds clear to auscultation bilaterally and equal. No wheezes rales or rhonchi. HEART: Regular rate and rhythm without murmurs, rubs, gallops. ABDOMEN: Soft, nontender, nondistended abdomen. No guarding, no rebound. No masses appreciated. Normal bowel sounds present. No CVA tenderness bilaterally. Musculoskeletal: Ext b/l: FROM to passive/active. Strength 5+/5. No deficits noted. No bony tenderness of extremities. Back: FROM to passive/active. Strength 5+/5. No vertebral point tenderness, stepoffs, or deformities. Extremities: No cyanosis, clubbing, or edema b/l. Peripheral pulses 2+. Capillary refill less than 2 seconds. NEUROLOGICAL: NIH 0. GCS 15. Cranial nerves grossly intact. Normal speech, normal gait. Normal sensory, motor exams. Reflexes 2+ b/l. NOHELIA's negative. Pronator drift negative. Heel/cruz, finger/nose wnl. Rhomberg negative. PSYCH: Normal mood, normal affect. SKIN: Warm, Dry, normal turgor, no rashes or lesions noted. Course - Re-evaluation Re-evalutation: 03/10/18 14:45 Patient is an afebrile, well-hydrated 52-year-old male who presents to the ED with an acute URI, suspect viral, with resolved dizziness unspecified. Vitals are acceptable without any significant tachycardia, tachypnea, or hypoxia. PE is otherwise unremarkable for any focal neurological deficits. Patient is nontoxic-appearing and is tolerating p.o. without any difficulties. Pt is currently asymptomatic. CBC, CMP, EKGx2/cardiac enzymes 2, chest x-ray are all unremarkable for any acute pathology. Patient was given meclizine today as well. Patient has a heart score of 3, Wells score of 0. Patient does not have any chest pain, dyspnea, or shortness of breath. Patient's presentation and symptomatology creates low suspicion for ACS, PE, pneumothorax, pericarditis, dissection, respiratory compromise, severe dehydration, sepsis, meningitis, acute intracranial pathology, or other systemic emergent condition at this time. Patient is aware that his condition can change from initial presentation and he needs to monitor symptoms closely and seek medical attention for any acute changes. Pt is feeling better and would like to go home. Recommend conservative measures for symptoms. Recheck with your PCM in 2-3 days. Return to the ED with any worsening/concerning symptoms otherwise as reviewed in discharge. Patient is in agreement. - Vital Signs Vital signs: Temp Pulse Resp BP Pulse Ox 97.6 F 65 18 162/83 H 98 03/10/18 09:13 03/10/18 14:09 03/10/18 14:09 03/10/18 14:09 03/10/18 14:09 - Laboratory Result Diagrams: 03/10/18 09:05 03/10/18 09:05 Laboratory results interpreted by me: 03/10/18 03/10/18 03/10/18 09:05 09:05 10:00 Hgb 13.0 L MCV 71 L MCH 23.6 L RDW 16.2 H Lymphocytes % 45.9 H Glucose 143 H Urine Protein 100 H Ur Leukocyte Esterase TRACE H Discharge - Discharge Clinical Impression: Acute URI, Dizziness Condition: Stable Disposition: HOME, SELF-CARE Instructions: Dizziness ([facility]), Upper Respiratory Illness ([facility]) Additional Instructions: Maintain adequate fluid intake Take meds as directed tylenol/ibuprofen as needed over the counter cold medication as needed for symptoms Humidified air may help Wash your hands regularly Wear a mask when coughing F/u: with your PCM in 3-5 days for a recheck Return to the ED with any fever, worsening pain, chest pain, palpitations, syncope, worsening CASEY, neck pain/stiffness, shortness of breath, wheezing, drooling, trouble swallowing/breathing, abdominal pain, n/v/d, rash, or worsening/concerning symptoms otherwise. Prescriptions: Insulin Detemir [Levemir Flextouch] 24 unit SQ QHS #1 insuln.pen Meclizine HCl 25 mg PO BID #6 tablet Forms: Elevated Blood Pressure Referrals: [facility] [Provider Group] - Follow up as needed [facility] [Provider Group] - Follow up as needed
[2018-03-10 10:21] LABS: VENOUS BLOOD BASE EXCESS 4.2 mmol/L; VENOUS BLOOD HCO3 29.8 mmol/L (20-32); VENOUS BLOOD PCO2 48.5 mmHg (35-63); VENOUS BLOOD PH 7.41 (7.30-7.42)
[2018-03-10 10:22] LABS: ABSOLUTE EOSINOPHILS # (AUTO) 0.2 10^3/uL (0.0-0.6); ABSOLUTE LYMPHOCYTES (AUTO) 3.2 10^3/uL (0.5-4.7); ABSOLUTE MONOCYTES (AUTO) 0.5 10^3/uL (0.1-1.4); ABSOLUTE NEUT (AUTO) 3.1 10^3/uL (1.7-8.2); BASOPHILS % (AUTO) 0.4 % (0-2); EOSINOPHILS % (AUTO) 2.6 % (0-6); HEMATOCRIT 39.3 % (37.9-51.0); LYMPHOCYTES % (AUTO) 45.9 % (13-45); MEAN CORPUSCULAR HEMOGLOBIN 23.6 pg (27.0-33.4); MEAN CORPUSCULAR VOLUME 71 fl (80-97); MONOCYTES % (AUTO) 7.3 % (3-13); PLATELET COUNT 289 10^3/uL (150-450); RED BLOOD COUNT 5.51 10^6/uL (4.35-5.55); RED CELL DISTRIBUTION WIDTH 16.2 % (11.5-14.0); SEGMENTED NEUTROPHILS % (AUTO) 43.8 % (42-78); TOTAL CELLS COUNTED % (AUTO) 100 %; WHITE BLOOD COUNT 7.1 10^3/uL (4.0-10.5)
[2018-03-10 10:27] LABS: APPEARANCE,URINE CLEAR; BILIRUBIN,URINE NEGATIVE (NEGATIVE); COLOR,URINE YELLOW; GLUCOSE, URINE NEGATIVE (NEGATIVE); KETONES,URINE NEGATIVE (NEGATIVE); LEUKOCYTE ESTERASE,URINE TRACE (NEGATIVE); NITRITE,URINE NEGATIVE (NEGATIVE); PROTEIN,URINE 100 mg/dL (NEGATIVE); URINE SPECIFIC GRAVITY 1.021; UROBILINOGEN,URINE NEGATIVE mg/dL (<2.0)
[2018-03-10 10:34] LABS: ALANINE AMINOTRANSFERASE 34 U/L (21-72); ALBUMIN 3.8 g/dL (3.5-5.0); ALKALINE PHOSPHATASE 71 U/L (38-126); ANION GAP 10 (5-19); ASPARTATE AMINO TRANSFERASE 25 U/L (17-59); BILIRUBIN,DIRECT 0.4 mg/dL (0.0-0.4); BILIRUBIN,TOTAL 0.6 mg/dL (0.2-1.3); BLOOD UREA NITROGEN 11 mg/dL (7-20); CALCIUM 9.6 mg/dL (8.4-10.2); CARBON DIOXIDE 30 mmol/L (22-30); CHLORIDE 103 mmol/L (98-107); CREATINE KINASE 130 U/L (55-170); GLUCOSE 143 mg/dL (75-110); POTASSIUM 4.4 mmol/L (3.6-5.0); SODIUM 143.4 mmol/L (137-145)
--- NOTE | 2018-03-10 10:34 | RADIOLOGY REPORT (SQ) ---
EXAM DESCRIPTION: CHEST SINGLE VIEW COMPLETED DATE/TIME: 03/10/2018 10:21 am REASON FOR STUDY: cough COMPARISON: October 2017 EXAM PARAMETERS: NUMBER OF VIEWS: One view. TECHNIQUE: Single frontal radiographic view of the chest acquired. RADIATION DOSE: NA LIMITATIONS: None. FINDINGS: LUNGS AND PLEURA: No opacities, masses or pneumothorax. No pleural effusion. MEDIASTINUM AND HILAR STRUCTURES: No masses. Contour normal. HEART AND VASCULAR STRUCTURES: Heart normal in size. Normal vasculature. BONES: No acute findings. HARDWARE: None in the chest. OTHER: No other significant finding. IMPRESSION: NO ACUTE RADIOGRAPHIC FINDING IN THE CHEST. TECHNICAL DOCUMENTATION: JOB ID: [id number] [employer]- All Rights Reserved Reading location - IP/workstation name: [email or web address]
[2018-03-10 10:46] LABS: CREATINE KINASE MB 1.93 ng/mL (<4.55); TROPONIN I 0.02 ng/mL
[2018-03-10 14:10] VITALS: BP 162/83
--- NOTE | 2018-03-10 19:20 | EKG REPORT ---
SEVERITY:- ABNORMAL ECG - SINUS RHYTHM NONSPECIFIC INTRAVENTRICULAR CONDUCTION DELAY PROBABLE LEFT VENTRICULAR HYPERTROPHY : Confirmed by: Malaika Blas 10-Mar-2018 19:19:34
--- NOTE | 2018-03-10 19:20 | EKG REPORT ---
SEVERITY:- BORDERLINE ECG - SINUS RHYTHM BORDERLINE T WAVE ABNORMALITIES BORDERLINE ST ELEVATION, ANTERIOR LEADS : Confirmed by: Malaika Blas 10-Mar-2018 19:19:43
== END 2018-03-10 15:03 | disposition home or self-care (01) ==
LOC: ER 08:53
DX: J06.9 Acute upper respiratory infection, unspecified (principal); R42 Dizziness and giddiness; R09.81 Nasal congestion; I10 Essential (primary) hypertension; I25.2 Old myocardial infarction; E11.9 Type 2 diabetes mellitus without complications; Z79.4 Long term (current) use of insulin
CPT/HCPCS: 93005; 99285; 96360; 36415; 87086; 82553; 82550; 85025; 80053; 81001; 84484; 82803; 71045; 93010; J7030

== ENCOUNTER 2018-10-18 06:35 | Observation (INO) | payer SELFPAY ==
[2018-10-18] MEDS ORDERED: ASPIRIN 81 MG TABLET, CHEWABLE PO ONE (06:39)
[2018-10-18 07:20] LABS: ABSOLUTE EOSINOPHILS # (AUTO) 0.2 10^3/uL (0.0-0.6); ABSOLUTE MONOCYTES (AUTO) 0.5 10^3/uL (0.1-1.4); ABSOLUTE NEUT (AUTO) 2.9 10^3/uL (1.7-8.2); BASOPHILS % (AUTO) 0.6 % (0-2); EOSINOPHILS % (AUTO) 3.2 % (0-6); HEMATOCRIT 41.4 % (37.9-51.0); HEMOGLOBIN 13.6 g/dL (13.5-17.0); MEAN CORPUSCULAR HEMOGLOBIN 23.3 pg (27.0-33.4); MEAN CORPUSCULAR HGB CONC 32.8 g/dL (32.0-36.0); MEAN CORPUSCULAR VOLUME 71 fl (80-97); MONOCYTES % (AUTO) 6.5 % (3-13); PLATELET COUNT 271 10^3/uL (150-450); RED BLOOD COUNT 5.83 10^6/uL (4.35-5.55); RED CELL DISTRIBUTION WIDTH 15.5 % (11.5-14.0); SEGMENTED NEUTROPHILS % (AUTO) 37.7 % (42-78); TOTAL CELLS COUNTED % (AUTO) 100 %; WHITE BLOOD COUNT 7.7 10^3/uL (4.0-10.5)
[2018-10-18 07:32] LABS: INTERNATIONAL RATION (INR) 0.89; PROTHROMBIN TIME 12.5 SEC (11.4-15.4)
[2018-10-18 07:38] LABS: ALANINE AMINOTRANSFERASE 25 U/L (21-72); ALBUMIN 4.1 g/dL (3.5-5.0); ALKALINE PHOSPHATASE 89 U/L (38-126); ANION GAP 11 (5-19); ASPARTATE AMINO TRANSFERASE 20 U/L (17-59); BILIRUBIN,DIRECT 0.3 mg/dL (0.0-0.4); BILIRUBIN,TOTAL 0.5 mg/dL (0.2-1.3); BLOOD UREA NITROGEN 11 mg/dL (7-20); CALCIUM 9.7 mg/dL (8.4-10.2); CARBON DIOXIDE 28 mmol/L (22-30); CHLORIDE 101 mmol/L (98-107); CREATINE KINASE 167 U/L (55-170); GLUCOSE 176 mg/dL (75-110); POTASSIUM 4.7 mmol/L (3.6-5.0); SODIUM 139.6 mmol/L (137-145)
--- NOTE | 2018-10-18 07:45 | RADIOLOGY REPORT (SQ) ---
Chest single view on 10/18/2018 at 7:30 AM CLINICAL INDICATION: Chest pain COMPARISON: 03/10/2018 FINDINGS: Heart is upper limits normal for size. Hilar and mediastinal contours are within normal limits. The lungs are clear. Pulmonary vascularity is within normal limits. IMPRESSION: No acute disease.
[2018-10-18 07:49] LABS: CREATINE KINASE MB 2.33 ng/mL (<4.55); TROPONIN I 0.029 ng/mL
--- NOTE | 2018-10-18 07:53 | ER Document Report ---
ED Cardiac - General Chief Complaint: Chest Pain > 30 Stated Complaint: CHEST PAIN Time Seen by Provider: 10/18/18 07:10 Mode of Arrival: Medic Information source: Patient Notes: Patient is a 52-year-old male who presents the emergency department chief complaint of chest pain. Patient arrives via ambulance. Patient is alert, oriented states that his chest pain started approximately 430 this morning when he woke up to use the bathroom. He describes it as a sharp stabbing intermittent midsternal chest pain which has now resolved. Patient does have a history of MD in the past. Patient reports associated shortness of breath but denies any nausea, vomiting or diaphoresis. Patient denies any radiation of the pain. Patient does not have a local primary care provider, states he is seen by cardiology in [place]. Patient does have a history of hypertension, states he has not taken his medication several months. TRAVEL OUTSIDE OF THE [place] IN LAST 30 DAYS: No - Related Data Allergies/Adverse Reactions: No Known Allergies Allergy (Verified 10/18/18 06:45) Past Medical History - General Information source: Patient - Social History Smoking Status: Current Every Day Smoker Frequency of alcohol use: None Drug Abuse: None Family History: Reviewed & Not Pertinent Patient has suicidal ideation: No Patient has homicidal ideation: No - Past Medical History Cardiac Medical History: Reports: Hx Heart Attack - x2, Hx Hypertension Endocrine Medical History: Reports: Hx Diabetes Mellitus Type 1, Hx Diabetes Mellitus Type 2 Renal/ Medical History: Denies: Hx Peritoneal Dialysis - Immunizations Hx Diphtheria, Pertussis, Tetanus Vaccination: No Review of Systems - Review of Systems Constitutional: No symptoms reported EENT: No symptoms reported Cardiovascular: Chest pain, Palpitations Respiratory: Short of breath Gastrointestinal: No symptoms reported. denies: Nausea, Vomiting Genitourinary: No symptoms reported Male Genitourinary: No symptoms reported Musculoskeletal: No symptoms reported Skin: No symptoms reported Hematologic/Lymphatic: No symptoms reported Neurological/Psychological: No symptoms reported Physical Exam - Vital signs Vitals: Pulse Ox 97 10/18/18 06:39 - Notes Notes: PHYSICAL EXAMINATION: GENERAL: Well-appearing, well-nourished and in no acute distress. HEAD: Atraumatic, normocephalic. EYES: Pupils equal round and reactive to light, extraocular movements intact, sclera anicteric, conjunctiva are normal. ENT: Nares patent, oropharynx clear without exudates. Moist mucous membranes. NECK: Normal range of motion, supple without lymphadenopathy LUNGS: Breath sounds clear to auscultation bilaterally and equal. No wheezes rales or rhonchi. HEART: Regular rate and rhythm without murmurs ABDOMEN: Soft, nontender, nondistended abdomen. No guarding, no rebound. No masses appreciated. Musculoskeletal: Normal range of motion, no pitting or edema. No cyanosis. NEUROLOGICAL: Cranial nerves grossly intact. Normal speech, normal gait. Normal sensory, motor exams PSYCH: Normal mood, normal affect. SKIN: Warm, Dry, normal turgor, no rashes or lesions noted. Course - Re-evaluation Re-evalutation: Chest x-ray is negative with no evidence of cardiomegaly, infiltrates or pneumothorax. CBC and CMP are unremarkable. EKG reveals a sinus rhythm, rate of 72, QTc 460, normal axis with no ST segment elevations or depressions. EKG is unchanged from previous on file from 03/10/18. Initial troponin is 0.029. Patient remains chest pain-free while in the emergency department we will be drawing a delta troponin at 1030. 10/18/18 12:01 Repeat troponin 0.024. Patient has a heart score of 4. Patient is chest pain- free. 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 10/18/18 12:13 I did call hospitalist to request admission for this patient. Spoke with Kassie Bay NP. She is going to consult cardiology prior to accepting the patient. 10/18/18 13:00 Patient accepted for admission by Kassie Bay NP. - Vital Signs Vital signs: Temp Pulse Resp BP Pulse Ox 98.2 F 22 H 147/92 H 98 10/18/18 06:45 10/18/18 11:31 10/18/18 11:31 10/18/18 10:01 - Laboratory Result Diagrams: 10/18/18 06:05 10/18/18 06:05 Laboratory results interpreted by me: 10/18/18 10/18/18 06:05 06:05 RBC 5.83 H MCV 71 L MCH 23.3 L RDW 15.5 H Seg Neutrophils % 37.7 L Lymphocytes % 52.0 H Glucose 176 H Discharge - Discharge Clinical Impression: Chest pain Qualifiers: Chest pain type: unspecified Qualified Code(s): R07.9 - Chest pain, unspecified Hypertension Qualifiers: Hypertension type: unspecified Qualified Code(s): I10 - Essential (primary) hypertension Condition: Stable Disposition: ADMITTED OBSERVATION Admitting Provider: Hospitalist Unit Admitted: Telemetry
--- NOTE | 2018-10-18 08:09 | EKG REPORT ---
SEVERITY:- ABNORMAL ECG - SINUS RHYTHM NONSPECIFIC T ABNORMALITIES, LATERAL LEADS : Confirmed by: Noel Jean MD 18-Oct-2018 08:08:44
[2018-10-18] MEDS ORDERED: NITROGLYCERIN 0.4 MG/TAB 25 TAB/BOTTLE SL PRN (13:24)
[2018-10-18] MEDS ORDERED: MORPHINE SULFATE 10 MG/ML INJ IV PRN (13:24)
[2018-10-18] MEDS ORDERED: METOPROLOL TARTRATE PF/INJ 5 MG/5 ML SDV IV PRN (13:32)
[2018-10-18] MEDS ORDERED: HYDRALAZINE HCL INJ/PF 20 MG/1 ML SDV IV PRN (13:32)
--- NOTE | 2018-10-18 14:31 | PDOC H&P ---
History of Present Illness Admission Date/PCP: 10/18/18 13:08 Patient complains of: CHEST PAIN History of Present Illness: ESE ROSE is a 52 year old male with a PMH of DM, CVA, HTN, HLD, HI. He presented to [facility] with a complaint of chest pain. Patient reports that he woke up this morning and upon walking to the bathroom he began experiencing midsternal, sharp, nonradiating chest pain. The patient reports he took sublingual nitroglycerin tablets (total of 3) and his chest pain was resolved. Upon arrival to the hospital, the patient's EKG showed NSR with no evidence of ischemia or infarct. Cardiac enzymes WNL. All other laboratory studies, including CBC and chemistry, are normal. CXR is WNL, no evidence of cardiopulmonary pathology. Upon assessment, he denies chest pain at the time of interview. S1-S2. Lung sounds clear to auscultation. The patient is super morbidly obese. Pulses are palpable in upper and lower extremities, there is no evidence of peripheral edema or JVD. Of note, the patient is without health insurance. He refuses to follow-up with computer systems analyst in [place] because he states it is too far away. Additionally, he cannot afford his medications. Plan to admit to hospitalist service for chest pain observation. Past Medical History Cardiac Medical History: Reports: Coronary Artery Disease, Myocardial Infarction - x2, Hypertension Endocrine Medical History: Reports: Diabetes Mellitus Type 2 Past Surgical History Past Surgical History: Reports: Other - TRACH PLACEMENT 20YRS AGO Social History Information Source: Patient Lives with: Alone Smoking Status: Current Every Day Smoker Cigarettes Packs Per Day: 1 Number of Years Smokin Frequency of Alcohol Use: Rare - Advance Directive Resuscitation Status: Full Code Family History Family History: Reviewed & Not Pertinent Parental Family History Reviewed: Yes Children Family History Reviewed: Yes Sibling(s) Family History Reviewed.: Yes Medication/Allergy Allergies/Adverse Reactions: No Known Allergies Allergy (Verified 10/18/18 06:45) Review of Systems All systems: reviewed and no additional remarkable complaints except as stated Physical Exam Vital Signs: Temp Pulse Resp BP Pulse Ox 98.2 F 15 148/95 H 96 10/18/18 06:45 10/18/18 13:49 10/18/18 13:50 10/18/18 14:00 General appearance: PRESENT: morbidly obese Head exam: PRESENT: atraumatic Eye exam: PRESENT: conjunctiva pink, PERRLA Mouth exam: PRESENT: moist, tongue midline Neck exam: PRESENT: full ROM Respiratory exam: PRESENT: clear to auscultation ade, symmetrical, unlabored Cardiovascular exam: PRESENT: RRR, +S1, +S2 Pulses: PRESENT: normal radial pulses, normal dorsalis pedis pul Vascular exam: PRESENT: normal capillary refill GI/Abdominal exam: PRESENT: normal bowel sounds, soft. ABSENT: tenderness Rectal exam: PRESENT: deferred Extremities exam: PRESENT: full ROM, pedal edema - TRACE EDEMA Musculoskeletal exam: PRESENT: ambulatory, full ROM Neurological exam: PRESENT: alert, awake, oriented to person, oriented to place, oriented to time, oriented to situation Psychiatric exam: PRESENT: appropriate affect Skin exam: PRESENT: dry, intact, normal color Results Laboratory Results: 10/18/18 06:05 10/18/18 06:05 10/18/18 10/18/18 06:05 06:05 WBC 7.7 RBC 5.83 H Hgb 13.6 Hct 41.4 MCV 71 L MCH 23.3 L MCHC 32.8 RDW 15.5 H Plt Count 271 Seg Neutrophils % 37.7 L Lymphocytes % 52.0 H Monocytes % 6.5 Eosinophils % 3.2 Basophils % 0.6 Absolute Neutrophils 2.9 Absolute Lymphocytes 4.0 Absolute Monocytes 0.5 Absolute Eosinophils 0.2 Absolute Basophils 0.0 Sodium 139.6 Potassium 4.7 Chloride 101 Carbon Dioxide 28 Anion Gap 11 BUN 11 Creatinine 0.80 Est GFR ( Amer) > 60 Est GFR (Non-Af Amer) > 60 Glucose 176 H Calcium 9.7 Total Bilirubin 0.5 AST 20 ALT 25 Alkaline Phosphatase 89 Total Protein 7.0 Albumin 4.1 10/18/18 10/18/18 10/18/18 06:05 06:05 10:40 Creatine Kinase 167 CK-MB (CK-2) 2.33 Troponin I 0.029 0.024 Impressions: Chest X-Ray 10/18/18 06:39 IMPRESSION: No acute disease. Status: Imported from PACS Assessment & Plan - Diagnosis (1) Chest pain Qualifiers: Chest pain type: unspecified Qualified Code(s): R07.9 - Chest pain, unspecified Is this a current diagnosis for this admission?: Yes Plan: Sharp, midsternal, nonradiating chest pain Relieved with sublingual nitroglycerin EKG shows NSR, no ischemia or infarct CXR benign Initial cardiac enzymes negative, plan to trend every 6 hours Repeak EKG in AM No plan for echocardiogram or stress test Initiate beta-pedro, DEVYN inhibitor and aspirin therapy (2) Hypertension Qualifiers: Hypertension type: unspecified Qualified Code(s): I10 - Essential (primary) hypertension Is this a current diagnosis for this admission?: Yes Plan: PMH of HTN Noncompliant with medications due to financial reasons Resume DEVYN inhibitor, beta-pedro, aspirin therapy PRN hydralazine and Lopressor IV for SBP>170 (3) Diabetes Qualifiers: Diabetes mellitus type: type 2 Diabetes mellitus complication status: without complication Is this a current diagnosis for this admission?: Yes Plan: PMH of diabetes Check hemoglobin A1c in a.m. Diabetic diet Accu-Cheks AC at bedtime Humalog sliding scale insulin (4) Super obese Is this a current diagnosis for this admission?: Yes Plan: weight management with diet - Time Time Spent: 30 to 50 Minutes Medications reviewed and adjusted accordingly: Yes Anticipated discharge: Home - Inpatient Certification Based on my medical assessment, after consideration of the patient's comorbidities, presenting symptoms, or acuity I expect that the services needed warrant INPATIENT care.: Yes I certify that my determination is in accordance with my understanding of Medicare's requirements for reasonable and necessary INPATIENT services [42 CFR 412.3e].: Yes Medical Necessity: Need For Continuous Telemetry Monitoring, Risk of Complication if Not Cared For in Hospital - Plan Summary Plan Summary: ADMIT TO MED-TELE. TREND CARDIAC ENZYMES. RESUME REGIMEN OF ANTI-HTN
[2018-10-18 14:51] LABS: CREATINE KINASE MB 1.85 ng/mL (<4.55); TROPONIN I 0.016 ng/mL
[2018-10-18] MEDS ORDERED: DEXTROSE 40% GEL 15 GM TUBE PO PRN ×2 (15:34)
[2018-10-18] MEDS ORDERED: DEXTROSE 50%-WATER 25 GM/50 ML DISP.SYRIN IV PRN ×2 (15:34)
[2018-10-18] MEDS ORDERED: GLUCAGON,HUMAN RECOMB 1 MG INJ IM PRN (15:34)
[2018-10-18] MEDS: INSULIN LISPRO 100 UNIT/ML 3 ML VIAL SUBCUT SCH ×2 (17:32→21:57)
[2018-10-18] MEDS ORDERED: NICOTINE 21 MG/24 HR PATCH.TD24 TD ONE (19:00)
[2018-10-18 20:34] LABS: CREATINE KINASE MB 1.79 ng/mL (<4.55); TROPONIN I 0.028 ng/mL
[2018-10-18] MEDS: METOPROLOL TARTRATE 25 MG TABLET PO SCH (21:55)
[2018-10-18] MEDS: FAMOTIDINE 20 MG TABLET PO SCH (21:57)
[2018-10-18] MEDS ORDERED: ATORVASTATIN CALCIUM 20 MG TABLET PO SCH (22:00)
[2018-10-19 02:19] LABS: ABSOLUTE BASOPHILS # (AUTO) 0.1 10^3/uL (0.0-0.2); ABSOLUTE EOSINOPHILS # (AUTO) 0.2 10^3/uL (0.0-0.6); ABSOLUTE LYMPHOCYTES (AUTO) 3.7 10^3/uL (0.5-4.7); ABSOLUTE MONOCYTES (AUTO) 0.6 10^3/uL (0.1-1.4); ABSOLUTE NEUT (AUTO) 3.7 10^3/uL (1.7-8.2); BASOPHILS % (AUTO) 1.1 % (0-2); EOSINOPHILS % (AUTO) 2.9 % (0-6); HEMATOCRIT 39.3 % (37.9-51.0); HEMOGLOBIN 12.9 g/dL (13.5-17.0); LYMPHOCYTES % (AUTO) 44.5 % (13-45); MEAN CORPUSCULAR HEMOGLOBIN 23.2 pg (27.0-33.4); MEAN CORPUSCULAR HGB CONC 32.7 g/dL (32.0-36.0); MEAN CORPUSCULAR VOLUME 71 fl (80-97); MONOCYTES % (AUTO) 7.3 % (3-13); PLATELET COUNT 242 10^3/uL (150-450); RED BLOOD COUNT 5.53 10^6/uL (4.35-5.55); RED CELL DISTRIBUTION WIDTH 15.6 % (11.5-14.0); SEGMENTED NEUTROPHILS % (AUTO) 44.2 % (42-78); TOTAL CELLS COUNTED % (AUTO) 100 %; WHITE BLOOD COUNT 8.4 10^3/uL (4.0-10.5)
[2018-10-19 02:28] LABS: ANION GAP 8 (5-19); BLOOD UREA NITROGEN 14 mg/dL (7-20); CALCIUM 9.6 mg/dL (8.4-10.2); CARBON DIOXIDE 27 mmol/L (22-30); CHLORIDE 103 mmol/L (98-107); GLUCOSE 171 mg/dL (75-110); PHOSPHORUS 4.4 mg/dL (2.5-4.5); POTASSIUM 4.5 mmol/L (3.6-5.0)
[2018-10-19 02:40] LABS: CREATINE KINASE MB 1.47 ng/mL (<4.55); TROPONIN I 0.03 ng/mL
[2018-10-19] MEDS: INSULIN LISPRO 100 UNIT/ML 3 ML VIAL SUBCUT SCH ×2 (08:15→11:59)
--- NOTE | 2018-10-19 08:54 | EKG REPORT ---
SEVERITY:- ABNORMAL ECG - SINUS RHYTHM NONSPECIFIC INTRAVENTRICULAR CONDUCTION DELAY PROBABLE LEFT VENTRICULAR HYPERTROPHY : Confirmed by: Noel Jean MD 19-Oct-2018 08:53:29
[2018-10-19] MEDS ORDERED: ASPIRIN 81 MG TABLET, ENT COATED PO SCH (10:00)
[2018-10-19] MEDS ORDERED: LISINOPRIL 5 MG TABLET PO SCH (10:00)
[2018-10-19] MEDS: METOPROLOL TARTRATE 25 MG TABLET PO SCH (10:02)
[2018-10-19] MEDS: FAMOTIDINE 20 MG TABLET PO SCH (10:03)
[2018-10-19] MEDS ORDERED: METOPROLOL TARTRATE 25 MG TABLET PO ONE (11:17)
[2018-10-19 12:50] VITALS: BP 149/84
--- NOTE | 2018-10-19 16:33 | PDOC DISCHARGE SUMMARY ---
General - Admit/Disc Date/PCP Admission Date/Primary Care Provider: 10/18/18 13:08 Discharge Date: 10/19/18 - Discharge Diagnosis (1) Chest pain Is this a current diagnosis for this admission?: Yes (2) Hypertension Is this a current diagnosis for this admission?: Yes (3) Diabetes Is this a current diagnosis for this admission?: Yes (4) Super obese Is this a current diagnosis for this admission?: Yes - Additional Information Resuscitation Status: Full Code Discharge Diet: As Tolerated Discharge Activity: Activity As Tolerated Prescriptions: Aspirin [Ecotrin 81 mg EC Tablet] 81 mg PO DAILY #30 tabec Lisinopril [Prinivil 10 mg Tablet] 10 mg PO DAILY #30 tablet Metoprolol Tartrate [Lopressor 25 mg Tablet] 25 mg PO Q12 #30 tablet Simvastatin 20 mg PO AC #30 tablet Home Medications: Aspirin [Ecotrin 81 mg EC Tablet] 81 mg PO DAILY #30 tabec 10/19/18 Lisinopril [Prinivil 10 mg Tablet] 10 mg PO DAILY #30 tablet 10/19/18 Metoprolol Tartrate [Lopressor 25 mg Tablet] 25 mg PO Q12 #30 tablet 10/19/18 Simvastatin 20 mg PO AC #30 tablet 10/19/18 History of Present Illness History of Present Illness: ESE ROSE is a 52 year old male with a PMH of DM, CVA, HTN, HLD, WA. He presented to [facility] with a complaint of chest pain. Patient reports that he woke up this morning and upon walking to the bathroom he began experiencing midsternal, sharp, nonradiating chest pain. The patient reports he took sublingual nitroglycerin tablets (total of 3) and his chest pain was resolved. Upon arrival to the hospital, the patient's EKG showed NSR with no evidence of ischemia or infarct. Cardiac enzymes WNL. All other laboratory studies, including CBC and chemistry, are normal. CXR is WNL, no evidence of cardiopulmonary pathology. Upon assessment, he denies chest pain at the time of interview. S1-S2. Lung sounds clear to auscultation. The patient is super morbidly obese. Pulses are palpable in upper and lower extremities, there is no evidence of peripheral edema or JVD. Of note, the patient is without health insurance. He refuses to follow-up with [facility] in [place] because he states it is too far away. Additionally, he cannot afford his medications. Plan to admit to hospitalist service for chest pain observation. Hospital Course Hospital Course: 52 y.o. super morbidly obese male with a past medical history of WA, DM, HTN, HL D. The patient was admitted to [facility] for chest pain observation. The patient's EKG showed NSR with no evidence of ischemia or infarct. Initial cardiac enzymes WNL. Serial EKGs and serial cardiac enzymes continue to be normal. Discussed the patient's case with fumigator and sterilizer, Dr. Rahman, who felt the patient did not warrant an echocardiogram or stress test. The patient's blood pressure was me dically managed. He did not report any subsequent episodes of chest pain during his hospitalization. On hospital day #2, case management was contacted about assisting the patient in getting his blood pressure medications at a discounted rate. Fortunately, his beta pedro, DEVYN inhibitor and statin medication were all on the $4 list at [facility]. Additionally, aspirin is available at [facility] for less than $1. The patient stated he could afford his medications. When showcase maker offered to have the hospital cover the cost of his medications, the patient declined. The patient was discharged on hospital day #2 with [facility] For further information regarding this patient's hospitalization, please refer to the EMR. Physical Exam Vital Signs: Temp Pulse Resp BP Pulse Ox 98.4 F 70 19 149/84 H 98 10/19/18 14:45 10/19/18 14:45 10/19/18 14:45 10/19/18 14:45 10/19/18 14:45 Intake & Output 10/18/18 10/19/18 10/20/18 06:59 06:59 06:59 Intake Total 600 Balance 600 Weight 149.2 kg Results Laboratory Results: 10/19/18 02:08 10/19/18 02:08 10/19/18 10/19/18 02:08 02:08 WBC 8.4 RBC 5.53 Hgb 12.9 L Hct 39.3 MCV 71 L MCH 23.2 L MCHC 32.7 RDW 15.6 H Plt Count 242 Seg Neutrophils % 44.2 Lymphocytes % 44.5 Monocytes % 7.3 Eosinophils % 2.9 Basophils % 1.1 Absolute Neutrophils 3.7 Absolute Lymphocytes 3.7 Absolute Monocytes 0.6 Absolute Eosinophils 0.2 Absolute Basophils 0.1 Sodium 138.0 Potassium 4.5 Chloride 103 Carbon Dioxide 27 Anion Gap 8 BUN 14 Creatinine 0.87 Est GFR ( Amer) > 60 Est GFR (Non-Af Amer) > 60 Glucose 171 H Calcium 9.6 Phosphorus 4.4 10/18/18 10/18/18 10/18/18 06:05 06:05 10:40 Creatine Kinase 167 CK-MB (CK-2) 2.33 Troponin I 0.029 0.024 10/18/18 10/18/18 10/19/18 14:02 19:56 02:08 Creatine Kinase CK-MB (CK-2) 1.85 1.79 1.47 Troponin I 0.016 0.028 0.030 Impressions: Chest X-Ray 10/18/18 06:39 IMPRESSION: No acute disease. Qualifiers - * PATIENT BEING DISCHARGED WITH ANY OF THE FOLLOWING DIAGNOSIS: No
[2018-10-19] MEDS ORDERED: NICOTINE 21 MG/24 HR PATCH.TD24 TD SCH (18:00)
[2018-10-19] MEDS ORDERED: METOPROLOL TARTRATE 25 MG TABLET PO SCH (22:00)
== END 2018-10-19 14:40 | disposition home or self-care (01) ==
LOC: ER 06:35 → EH 13:08 → 4S 14:12
PROVIDERS: ADMIT Internal Medicine; ATTEND Internal Medicine
DX: R07.89 Other chest pain (principal); I10 Essential (primary) hypertension; E11.9 Type 2 diabetes mellitus without complications; E66.01 Morbid (severe) obesity due to excess calories; I25.10 Atherosclerotic heart disease of native coronary artery without angina pectoris; F17.210 Nicotine dependence, cigarettes, uncomplicated; I25.2 Old myocardial infarction; R06.02 Shortness of breath; R00.2 Palpitations; E78.5 Hyperlipidemia, unspecified; Z79.82 Long term (current) use of aspirin; Z79.899 Other long term (current) drug therapy; Z86.73 Personal history of transient ischemic attack (TIA), and cerebral infarction without residual deficits; Z91.14 Patient's other noncompliance with medication regimen; Z59.6 Low income
CPT/HCPCS: 93005 ×2; 99285; 36415 ×2; 82553 ×2; 82962 ×2; 82550; 84100; 85025 ×2; 85610; 80048; 80053; 84484 ×2; 71045; 93010 ×2; G0378 ×3; J1815 ×2

== ENCOUNTER 2019-05-19 13:56 | Emergency (ER) | payer MEDICAID ==
[2019-05-19 14:53] LABS: ABSOLUTE BASOPHILS # (AUTO) 0.1 10^3/uL (0.0-0.2); ABSOLUTE EOSINOPHILS # (AUTO) 0.2 10^3/uL (0.0-0.6); ABSOLUTE LYMPHOCYTES (AUTO) 3.1 10^3/uL (0.5-4.7); ABSOLUTE MONOCYTES (AUTO) 0.5 10^3/uL (0.1-1.4); ABSOLUTE NEUT (AUTO) 2.6 10^3/uL (1.7-8.2); BASOPHILS % (AUTO) 0.8 % (0-2); EOSINOPHILS % (AUTO) 3.7 % (0-6); HEMATOCRIT 41.4 % (37.9-51.0); HEMOGLOBIN 13.2 g/dL (13.5-17.0); LYMPHOCYTES % (AUTO) 47.7 % (13-45); MEAN CORPUSCULAR HEMOGLOBIN 22.9 pg (27.0-33.4); MEAN CORPUSCULAR HGB CONC 31.8 g/dL (32.0-36.0); MEAN CORPUSCULAR VOLUME 72 fl (80-97); PLATELET COUNT 248 10^3/uL (150-450); RED BLOOD COUNT 5.74 10^6/uL (4.35-5.55); RED CELL DISTRIBUTION WIDTH 16.7 % (11.5-14.0); SEGMENTED NEUTROPHILS % (AUTO) 39.8 % (42-78); TOTAL CELLS COUNTED % (AUTO) 100 %; WHITE BLOOD COUNT 6.5 10^3/uL (4.0-10.5)
[2019-05-19 15:12] LABS: ALKALINE PHOSPHATASE 72 U/L (38-126); ANION GAP 8 (5-19); ASPARTATE AMINO TRANSFERASE 20 U/L (17-59); BILIRUBIN,DIRECT 0.1 mg/dL (0.0-0.4); BILIRUBIN,TOTAL 0.3 mg/dL (0.2-1.3); BLOOD UREA NITROGEN 16 mg/dL (7-20); CALCIUM 9.9 mg/dL (8.4-10.2); CARBON DIOXIDE 31 mmol/L (22-30); CHLORIDE 101 mmol/L (98-107); CREATINE KINASE 132 U/L (55-170); GLUCOSE 120 mg/dL (75-110); POTASSIUM 3.9 mmol/L (3.6-5.0)
[2019-05-19 15:22] LABS: CREATINE KINASE MB 1.45 ng/mL (<4.55)
[2019-05-19 15:32] LABS: TROPONIN I < 0.012 ng/mL
--- NOTE | 2019-05-19 16:19 | RADIOLOGY REPORT (SQ) ---
EXAM DESCRIPTION: CT HEAD WITHOUT COMPLETED DATE/TIME: 05/19/2019 4:06 pm REASON FOR STUDY: ams COMPARISON: CT of the a head without contrast from 10/16/2017. TECHNIQUE: Axial images acquired through the brain without intravenous contrast. Images reviewed wi th bone, brain and subdural windows. Images stored on PACS. All CT scanners at this facility use dose modulation, iterative reconstruction, and/or weight based d osing when appropriate to reduce radiation dose to as low as reasonably achievable (ALARA). [facility]: Dose Right [facility]: CareDose [facility]: Dose Right [facility]: Teradose 4D [facility]: [place] RADIATION DOSE: CT Rad equipment meets quality standard of care and radiation dose reduction techniq ues were employed. CTDIvol: 53.2 mGy. DLP: 964 mGy-cm. mGy. LIMITATIONS: None. FINDINGS: The confluent areas of hypoattenuation within the supratentorial periventricular and subco rtical white matter are stable and could represent the sequela of chronic microvascular ischemia. Th e focal areas of hypoattenuation within the basal ganglia and thalamic nuclei are also stable and cou ld represent chronic lacunar infarcts or prominent Virchow Max spaces. There is no acute intracranial hemorrhage, vascular territorial infarct, extra-axial fluid collection , mass effect or midline shift. There is no effacement of the cerebral sulci or basal subarachnoid c isterns. The [place]-white matter differentiation is preserved. The caliber of the ventricles is conco rdant with the degree of sulcation are unchanged from 10/16/2017. There is no fracture of the calvarium. The paranasal sinuses and the mastoid air cells are clear. T he orbits and globes are intact. IMPRESSION: Sequela of chronic ischemia without a superimposed acute intracranial abnormality. EVIDENCE OF ACUTE STROKE: NO. COMMENT: Quality ID # [id number]: Final reports with documentation of one or more dose reduction techniques (e.g., Automated exposure control, adjustment of the mA and/or kV according to patient size, use of iterative reconstruction technique) TECHNICAL DOCUMENTATION: JOB ID: [id number] [employer]- All Rights Reserved Reading location - IP/workstation name: [email or web address]
[2019-05-19 16:26] LABS: APPEARANCE,URINE SLIGHTLY-CLOUDY; BILIRUBIN,URINE NEGATIVE (NEGATIVE); COLOR,URINE YELLOW; GLUCOSE, URINE NEGATIVE (NEGATIVE); KETONES,URINE NEGATIVE (NEGATIVE); LEUKOCYTE ESTERASE,URINE TRACE (NEGATIVE); NITRITE,URINE NEGATIVE (NEGATIVE); PROTEIN,URINE 30 mg/dL (NEGATIVE); URINE SPECIFIC GRAVITY 1.024; UROBILINOGEN,URINE NEGATIVE mg/dL (<2.0)
--- NOTE | 2019-05-19 18:11 | ER Document Report ---
ED Dizziness/Weakness - General Chief Complaint: General Weakness Stated Complaint: ALTERED MENTAL STATUS Time Seen by Provider: 05/19/19 14:45 Mode of Arrival: Medic Information source: Patient TRAVEL OUTSIDE OF THE [place] IN LAST 30 DAYS: No - HPI Notes: Patient presents with weakness. Family called paramedics today because they state that the patient was outside in the chair and they could not wake him up. Here patient states that he just feels weak. Medics states when they arrived patient was awake and alert and oriented x4. There is no known history of syncope or passing out. It is unclear why family was unable to wake patient. Patient denies any pain. He denies feeling short of breath. He states that no vomiting or diarrhea. He states he just feels tired would like to go home and go to sleep. Symptoms were mild. Nothing appeared to make them better or worse. There is no no radiation of the symptoms. They apparently were cons tant. - Related Data Allergies/Adverse Reactions: No Known Allergies Allergy (Verified 10/18/18 06:45) Past Medical History - General Information source: Patient - Social History Smoking Status: Current Every Day Smoker Frequency of alcohol use: None Drug Abuse: Marijuana Family History: Reviewed & Not Pertinent Patient has suicidal ideation: No Patient has homicidal ideation: No - Past Medical History Cardiac Medical History: Reports: Hx Coronary Artery Disease, Hx Heart Attack - x2, Hx Hypercholesterolemia, Hx Hypertension Endocrine Medical History: Reports: Hx Diabetes Mellitus Type 1, Hx Diabetes Mellitus Type 2 Renal/ Medical History: Denies: Hx Peritoneal Dialysis Psychiatric Medical History: Denies: Hx Depression Past Surgical History: Reports: Hx Cardiac Surgery - stents, Other - TRACH PLACEMENT 20YRS AGO - Immunizations Hx Diphtheria, Pertussis, Tetanus Vaccination: No Review of Systems - Review of Systems Constitutional: Malaise, Weakness. denies: Chills, Fever Cardiovascular: denies: Chest pain, Palpitations Respiratory: denies: Cough, Short of breath Gastrointestinal: denies: Diarrhea, Vomiting -: Yes All other systems reviewed and negative Physical Exam - Vital signs Vitals: Temp Pulse Resp BP Pulse Ox 97.2 F 66 16 138/73 H 97 05/19/19 14:00 05/19/19 14:00 05/19/19 14:00 05/19/19 14:00 05/19/19 14:00 - Neurological Cognition: Normal Orientation: AAOx4 [place] Coma Scale Eye Opening: Spontaneous [place] Coma Scale Verbal: Oriented [place] Coma Scale Motor: Obeys Commands [place]tan Coma Scale Total: 15 Speech: Normal Cranial nerves: Normal Cerebellar coordination: No: Finger-nose rhombey, Truncal ataxia Motor strength normal: LUE, RUE, LLE, RLE Additional motor exam normals: Equal document imaging specialist. No: Pronator drift Course - Re-evaluation Re-evalutation: 05/19/19 18:09 Paramedics were called because patient was unarousable. However medics state the patient was alert and oriented x4 for them. Here patient has had no significant alteration of mental status. He states he feels weak however vital signs been normal. EKG and laboratories are unremarkable. Head CT shows no evidence of any acute process. At this time I think the patient is stable to follow-up as an outpatient. His urine does show a mild urinary tract infection for which I will give him antibiotics. - Vital Signs Vital signs: Temp Pulse Resp BP Pulse Ox 97.2 F 66 16 138/73 H 97 05/19/19 14:00 05/19/19 14:00 05/19/19 14:00 05/19/19 14:00 05/19/19 14:00 - Laboratory Result Diagrams: 05/19/19 14:30 05/19/19 14:30 Laboratory results interpreted by me: 05/19/19 05/19/19 05/19/19 14:30 14:30 15:30 RBC 5.74 H Hgb 13.2 L MCV 72 L MCH 22.9 L MCHC 31.8 L RDW 16.7 H Lymph % (Auto) 47.7 H Seg Neutrophils % 39.8 L Carbon Dioxide 31 H Glucose 120 H Urine Protein 30 H Ur Leukocyte Esterase TRACE H - Diagnostic Test Radiology reviewed: Image reviewed, Reports reviewed - EKG Interpretation by Nh EKG shows normal: Sinus rhythm Rate: Bradycardia - 58 Rhythm: Other - sinus oseas [place]/QRS: IVCD Discharge - Discharge Clinical Impression: Weakness Condition: Stable Disposition: HOME, SELF-CARE Instructions: Weakness ([facility]) Additional Instructions: Please call your primary care physician as soon as possible to arrange follow-up
[2019-05-19 18:28] VITALS: BP 150/80
--- NOTE | 2019-05-20 11:01 | EKG REPORT ---
SEVERITY:- ABNORMAL ECG - SINUS RHYTHM NONSPECIFIC INTRAVENTRICULAR CONDUCTION DELAY : Confirmed by: Malaika Blas 20-May-2019 11:00:25
== END 2019-05-19 18:30 | disposition home or self-care (01) ==
LOC: ER 13:56
DX: R53.1 Weakness (principal); N39.0 Urinary tract infection, site not specified; R53.81 Other malaise; R00.1 Bradycardia, unspecified; F12.10 Cannabis abuse, uncomplicated; F17.200 Nicotine dependence, unspecified, uncomplicated; I25.10 Atherosclerotic heart disease of native coronary artery without angina pectoris; I10 Essential (primary) hypertension; E11.9 Type 2 diabetes mellitus without complications; Z95.5 Presence of coronary angioplasty implant and graft
CPT/HCPCS: 36415; 70450; 80053; 81001; 82550; 82553; 84484; 85025; 93005; 93010; 99285

== ENCOUNTER 2019-06-04 10:14 | Day surgery (SDC) | payer MEDICAID ==
[2019-06-04] MEDS ORDERED: PROPOFOL INJ 200 MG/20 ML VIAL IV ONE ×2 (11:33→14:03)
--- NOTE | 2019-06-04 13:01 | EKG REPORT ---
SEVERITY:- ABNORMAL ECG - SINUS RHYTHM NONSPECIFIC INTRAVENTRICULAR CONDUCTION DELAY : Confirmed by: Noel Jean MD 04-Jun-2019 13:01:28
--- NOTE | 2019-06-04 15:27 | Operative Report ---
Operative Report DATE OF SURGERY: 06/04/19 Operative Report: The risks, benefits and alternatives of the procedure including the risk of bleeding, perforation requiring surgery have been explained to the patient in detail and informed consent is obtained. Patient is taken back to the endoscopy suite and placed in the left, lateral decubital position. Timeout was called. Propofol medication is administered. Rectal examination is done which did not reveal any masses, tears or fissures. An Olympus videoscope was introduced into the patient's rectum. The scope was then carefully advanced all the way to the cecum. Cecum was identified by the usual anatomical landmarks including the ileocecal valve as well as the appendiceal office. Photodocumentation is obtained the scope was then sequentially pulled back via the various segments of the colon including the ascending colon, hepatic flexure, transverse colon, splenic flexure, descending colon finding to the rectosigmoid portions of the colon. Retroflexion maneuvers performed. PREOPERATIVE DIAGNOSIS: Colorectal cancer screening POSTOPERATIVE DIAGNOSIS: Multiple polyps noted. All of them are fairly large. There are 3 noted in the transverse colon all of them removed via snare polypectomy. Because of the large base of 1 of the polyps in the transverse colon and Endo Clip was used to reduce the risk of post polypectomy bleeding. There are 2 descending colon polyps removed via snare polypectomy. There was a sigmoid polyp that was removed via snare polypectomy and again due to the large placed 2 endoclips were placed to reduce the risk of post polypectomy bleeding. Rectal polyp that was removed via snare polypectomy and retrieved. Internal hemorrhoids. Extended procedure time greater than 1 hour OPERATION: Colonoscopy with snare polypectomy SURGEON: SAUNDRA MARAVILLA ANESTHESIA: LMAC TISSUE REMOVED OR ALTERED: As noted above. COMPLICATIONS: None. ESTIMATED BLOOD LOSS: None. INTRAOPERATIVE FINDINGS: As noted above. PROCEDURE: Patient tolerated the procedure well. No immediate postprocedure complications are noted. Patient is discharged in good condition. Discharge date 06/04/2019. Discharge diet: Regular. Discharge activity: Regular. 2 to 3-week follow-up to discuss findings. Patient is instructed to call the office or proceed to the emergency room should there be any further problems or questions. 1 year surveillance colonoscopy.
[2019-06-04 15:37] VITALS: BP 151/96
== END 2019-06-04 15:13 | disposition home or self-care (01) ==
LOC: OROUT 10:14
PROVIDERS: ATTEND Internal Medicine Gastroenterology
DX: Z12.11 Encounter for screening for malignant neoplasm of colon (principal); D12.3 Benign neoplasm of transverse colon; D12.6 Benign neoplasm of colon, unspecified; D12.8 Benign neoplasm of rectum; Z87.891 Personal history of nicotine dependence; J45.909 Unspecified asthma, uncomplicated; I10 Essential (primary) hypertension; E11.9 Type 2 diabetes mellitus without complications
CPT/HCPCS: 45385; 82962; 88305 ×2; 93005; 93010; 00811; J2704; 811

== ENCOUNTER 2020-07-25 14:59 | Inpatient (IN) | payer MEDICAID ==
--- NOTE | 2020-07-25 15:26 | RADIOLOGY REPORT (SQ) ---
EXAM DESCRIPTION: CHEST SINGLE VIEW IMAGES COMPLETED DATE/TIME: 07/25/2020 3:19 pm REASON FOR STUDY: STROKE ALERT COMPARISON: 10/18/2018 EXAM PARAMETERS: NUMBER OF VIEWS: One view. TECHNIQUE: Single frontal radiographic view of the chest acquired. RADIATION DOSE: NA LIMITATIONS: Low lung volumes. FINDINGS: LUNGS AND PLEURA: No opacities, masses or pneumothorax. No pleural effusion. MEDIASTINUM AND HILAR STRUCTURES: No masses. Contour normal. HEART AND VASCULAR STRUCTURES: Heart normal in size. Normal vasculature. BONES: No acute findings. HARDWARE: None in the chest. OTHER: No other significant finding. IMPRESSION: Negative chest allowing for low lung volumes. TECHNICAL DOCUMENTATION: JOB ID: [id number] 2010 [employer]- All Rights Reserved Reading location - IP/workstation name: [email or web address]
--- NOTE | 2020-07-25 15:31 | RADIOLOGY REPORT (SQ) ---
EXAM DESCRIPTION: CT HEAD WITHOUT IMAGES COMPLETED DATE/TIME: 07/25/2020 3:16 pm REASON FOR STUDY: STROKE ALERT COMPARISON: 05/19/2019 TECHNIQUE: Axial images acquired through the brain without intravenous contrast. Images reviewed wi th bone, brain and subdural windows. Additional sagittal and coronal reconstructions were generated. Images stored on PACS. All CT scanners at this facility use dose modulation, iterative reconstruction, and/or weight based d osing when appropriate to reduce radiation dose to as low as reasonably achievable (ALARA). [facility]: Dose Right [facility]: CareDose [facility]: Dose Right [facility]: Teradose 4D [facility]: [employer] RADIATION DOSE: mGy. LIMITATIONS: None. FINDINGS: VENTRICLES: Prominent. CEREBRUM: No masses. No hemorrhage. No midline shift. Areas of low density in the white matter mos t likely due to chronic micro-vascular ischemic change. No evidence for acute infarction. CEREBELLUM: No masses. No hemorrhage. No alteration of density. No evidence for acute infarction. EXTRAAXIAL SPACES: Mild age-related involutional change. No fluid collections. No masses. ORBITS AND GLOBE: No intra- or extraconal masses. Normal contour of globe without masses. CALVARIUM: No fracture. PARANASAL SINUSES: No fluid or mucosal thickening. SOFT TISSUES: No mass or hematoma. OTHER: No other significant finding. IMPRESSION: Moderate chronic changes of atrophy and microvascular disease. No acute intracranial ev ent. EVIDENCE OF ACUTE STROKE: NO. COMMENT: Pertinent positive or negative findings of the imaging study reported as a CRITICAL EXAM nikolai MEJIA MD at15:23 on 07/25/2020. Category of Critical Exam: Stroke alert. TECHNICAL DOCUMENTATION: JOB ID: [id number] Quality ID # [id number]: Final reports with documentation of one or more dose reduction techniques (e.g., Au tomated exposure control, adjustment of the mA and/or kV according to patient size, use of iterative reconstruction technique) 2010 [employer]- All Rights Reserved Reading location - IP/workstation name: [email or web address]
[2020-07-25 15:40] LABS: ABSOLUTE BASOPHILS # (AUTO) 0.1 10^3/uL (0.0-0.2); ABSOLUTE EOSINOPHILS # (AUTO) 0.2 10^3/uL (0.0-0.6); ABSOLUTE LYMPHOCYTES (AUTO) 3.3 10^3/uL (0.5-4.7); ABSOLUTE MONOCYTES (AUTO) 0.7 10^3/uL (0.1-1.4); ABSOLUTE NEUT (AUTO) 3.9 10^3/uL (1.7-8.2); BASOPHILS % (AUTO) 1.7 % (0-2); HEMATOCRIT 40.1 % (37.9-51.0); HEMOGLOBIN 12.8 g/dL (13.5-17.0); LYMPHOCYTES % (AUTO) 39.6 % (13-45); MEAN CORPUSCULAR HEMOGLOBIN 22.9 pg (27.0-33.4); MEAN CORPUSCULAR VOLUME 72 fl (80-97); MONOCYTES % (AUTO) 8.1 % (3-13); PLATELET COUNT 237 10^3/uL (150-450); RED CELL DISTRIBUTION WIDTH 15.9 % (11.5-14.0); SEGMENTED NEUTROPHILS % (AUTO) 47.6 % (42-78); TOTAL CELLS COUNTED % (AUTO) 100 %; WHITE BLOOD COUNT 8.2 10^3/uL (4.0-10.5)
--- NOTE | 2020-07-25 15:44 | ER Document Report ---
ED Neuro Symptoms/Deficit - General Chief Complaint: S/S of Possible Stroke Stated Complaint: POSSIBLE STROKE Time Seen by Provider: 07/25/20 15:37 Mode of Arrival: Medic Information source: Patient Notes: 54-year-old male presenting to the emergency department with a history of strokelike symptoms which began on June sometime in the evening. He refused to come into the hospital until today. 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 They called EMS because of the concerns that he may have had a stroke. He is a history of hypertension and diabetes mellitus as well as morbid obesity. He has had difficulty with speech and right-sided upper and lower extremity weakness. He is a smoker approximately 1 pack/day. TRAVEL OUTSIDE OF THE [place] IN LAST 30 DAYS: No - Related Data Allergies/Adverse Reactions: No Known Allergies Allergy (Verified 06/04/19 11:10) Past Medical History - Social History Smoking Status: Current Every Day Smoker Family History: Reviewed & Not Pertinent - Past Medical History Cardiac Medical History: Reports: Hx Coronary Artery Disease - CARDIAC STENTS, Hx Heart Attack - x2, Hx Hypercholesterolemia, Hx Hypertension Pulmonary Medical History: Reports: Hx Asthma - MILD Denies: Hx Bronchitis, Hx COPD, Hx Pneumonia Neurological Medical History: Denies: Hx Cerebrovascular Accident, Hx Seizures Endocrine Medical History: Reports: Hx Diabetes Mellitus Type 1, Hx Diabetes Mellitus Type 2 Renal/ Medical History: Denies: Hx Peritoneal Dialysis Musculoskeletal Medical History: Reports Hx Arthritis - PIPPA KNEES Psychiatric Medical History: Denies: Hx Depression Past Surgical History: Reports: Hx Cardiac Surgery - stents, Other - TRACH PLACEMENT 20YRS AGO - Immunizations Hx Diphtheria, Pertussis, Tetanus Vaccination: No Review of Systems - Review of Systems Notes: Constitutional: Negative for fever. HENT: Negative for sore throat. Eyes: Negative for visual changes. Cardiovascular: Negative for chest pain. Respiratory: Negative for shortness of breath. Gastrointestinal: Negative for abdominal pain, vomiting or diarrhea. Genitourinary: Negative for dysuria. Musculoskeletal: Negative for back pain. Skin: Negative for rash. Neurological: See HPI 10 point ROS negative except as marked above and in HPI. Physical Exam - Notes Notes: PHYSICAL EXAMINATION: Physical Exam: General: This male in no acute distress HEENT: NC/AT, pupils equal round and reactive to light, MM moist,nares clear, oropharynx clear, airway patent Neck: supple, no adenopathy, no masses. Good range of motion Lungs: clear, no wheezing, no rales no rhonchi CVS: Regular rate and rhythm no murmur gallop or rub Abdomen: Soft, active, nontender, no masses, no hepatosplenomegaly Ext: No edema, clubbing or cyanosis. Neuro: Alert and responsive, mild facial droop right side, right upper extremity weakness 3/4, right lower extremity weakness with drift, difficulty expressing words and also understanding direction. Skin: Intact no open lesions, no rash Course - Re-evaluation Re-evalutation: 07/25/20 17:57 Patient has a stroke that began approximately 5 days prior to coming into the emergency department, he is not a candidate for TPA. He will be admitted to the hospital for further evaluation of the stroke symptoms and also treatment and rehab as needed. 07/25/20 18:32 I have contacted the hospitalist Dr. Spencer will see the patient in the emergency department for admission and further treatment. - Laboratory Result Diagrams: 07/25/20 15:25 07/25/20 15:25 - Diagnostic Test Radiology reviewed: Image reviewed, Reports reviewed Radiology results interpreted by me: 07/25/20 17:52 Chest X-Ray 07/25/20 00:00 IMPRESSION: Negative chest allowing for low lung volumes. Head CT 07/25/20 00:00 IMPRESSION: Moderate chronic changes of atrophy and microvascular disease. No acute intracranial event. EVIDENCE OF ACUTE STROKE: NO. 07/25/20 18:28 MRI brain noncontrast: Multiple small areas of left cerebral hemispheric findings suggestive of embolic stroke. - EKG Interpretation by Me Rate: Normal - EKG interpreted by Dr. Rinaldi: Normal sinus rhythm, rate 72, AL interval 128 ms QT interval 408 ms, normal axis, no acute ST or T wave abnormalities, no ischemic findings, compared to EKG dated 06/04/2019, there are no interval changes. Interpretation Abnormal EKG Critical Care Note - Critical Care Note Total time excluding time spent on procedures (mins): 45 - Critical care time spent obtaining history from patient or surrogate, discussions with consultants, development of treatment plan with patient or surrogate, evaluation of patient's response to treatment, examination of patient, ordering and performing treatments and interventions, ordering and review of laboratory studies, re- evaluation of patient's condition, ordering and review of radiographic studies and review of old charts ED Alteplase Inc/Exc Criteria - Date/Time patient last known well: Date/Time: 07/20/2020, unknown time - Date/Time patient arrived in ED: _: 07/25/2020/ 15:28 - Inclusion Criteria: 1: Patient presented to ED within 3 hours of acute ischemic stroke symptom onset? -: No 2: Did baseline CT exclude intracranial hemorrhage and/or other risk factors? -: Yes 3: Is the age of the patient 18 years of age or greater? -: Yes : If any of the above questions are answered "NO" then stop, patient is not a candidate for Alteplase, : If all of the above questions are answered "YES" then continue with Exclusion Criteria. - Exclusion Criteria: 1: Is there evidence of intracranial hemorrhage on baseline CT? -: No 2: Is there suspicion of subarachnoid hemorrhage (even if CT negative)? 3: Is there a history of serious head trauma, recent previous stroke or DC within 3 months? 4: Does the patient have a clinical presentation consistent with DC or post-DC pericarditis? 5: Is there history of intracranial hemorrhage? 6: On repeated measurement is Systolic BP greater than 185mmHg or Diastolic BP greater that 110 mmHg and is aggressive treatment needed to reduce blood pressure to these limits (e.g. constant infusion of an anti-hypertensive)? 7: Did the patient awake with stroke symptoms? 8: Has the patient had a lumbar puncture or an arterial puncture at a non- compressile site within 7 days? 9: With in the last 14 days did the patient have surgery or major trauma? 10: Is the patient or less than 2 weeks? 11: Was there any active bleeding or acute trauma? 12: Does the patient have intracranial neoplasm, arteriovenous malformation or aneurysm? 13: Does the patient have abnormal glucose (less than 50 or greater than 400mg/dl)? Record glucose in Comment. 14: Patient has rapidly improving symptoms at the time Alteplase is to be Administered. 15: Does the patient have any risks for bleeding, including but not limited to: a.: Current use of Coumadin with PT greater than 15 seconds or INR greater than 1.7. b.: Current use of Pradaxa (Dabigatran). c.: Heparin administereed within the past 48 hours and PTT elevated. d.: Platelet count less than 100,000/mm. e.: Major surgery or serious trauma within 14 days. f.: Gastrointestinal or gynecological urinary bleeding within 14 days. g.: Myocardial Infarction (DC) within 3 months. : If the answer to any of the above questions is "YES" then stop, the patient is not a candidate for Alteplase. : If the answer to all of the above questions is "NO" then the patient may be eligible for the Administration of Alteplase. : If the patient is noted to have seizure activity at onset of Stroke symptoms; Consult Neurologist for further evaluation. - The patient is: -: Included and is eligible to receive Alteplase. *Initiate bed placement at higher level of care* Reviewed risks & benefits of thrombolytic therapy: I have reviewed the risks and benefits of thrombolytic therapy with the patient and/or his/her family. -: Excluded and not eligible to receive Alteplase for the above exclusions. -: Excluded and not eligible to receive Alteplase for other reasons (specify in comments): - Diagnosis of TIA: -: Patient presented with transient symptoms that are now resolved and no other neurologic findings are currently present. List symptoms in comments. -: Patient is NOT a candidate for tPA. -: ____(put name in comment) has been consulted for admission and continued evaluation of risk factor assessment. ED NIH Stroke Scale - NIH Stroke Scale When completed:: Protocol *: 1. NIH scale should be completed with appropriate accompanying assessment tools. *: 2. The NIH should reflect what the patient is capable of doing and should not be coached by the clinician. 1a. Level of Consciousness: 0=Alert;keenly responsive -: 1=Drowsy -: 2=Obtunded -: 3=Coma/unresponsive or reflex to noxious stimuli. 1a. Responses: 0 1b. Orientation Questions: a. What month is it? -: b. How old are you? -: 0=Answers both questions correctly. -: 1=Answers one question correctly or patient is intubated or has orotracheal trauma. -: 2=Answers neither question correctly. 1b. Responses: 2 1c. Response to commands: a. Open and close eyes? -: b. Assignment Clerk and release hand? -: Credit is given despite weakness. Demonstration of task is permitted. Substitute command if hands cannot be used. -: 0=Performs both tasks correctly -: 1=Performs one task correctly -: 2=Performs neither task correctly 1c. Responses: 0 2. Gaze: Establish eye contact and instruct patient to "Follow my finger" -: 0=Normal -: 1=Partial gaze palsy. Gaze is abnormal in one or both eyes, but where forced deviation or total gaze paresis is not present. -: 2=Forced deviation or total gaze paresis. 2. Responses: 0 3. Visual Beard: Sees fingers in all four quadrants. -: 0=No visual loss. -: 1=Partial hemianopsia. -: 2=Complete hemianopsia. -: 3=Bilateral hemianopsia (including Cortical blindness) 3. Responses: 0 4. Facial Movement: Instruct patient to: -: a. Show me your teeth -: b. Raise your eyebrows -: c. Close your eyes -: d. Smile -: 0=Normal symmetrical movement -: 1=Minor paralysis (flattened nasolabial fold, asymmetry on smiling). -: 2=Partial paralysis (total or near total paralysis of lower face). -: 3=Complete paralysis of upper and lower face 4. Responses: 1 5. Motor functions (left arm): Alternate sides and extend each arm with palms down (90 degrees if sitting or 45 degrees for supine). -: 0=No drift;limb holds for full 10 seconds. -: 1=Drift; limb holds but drifts down before full 10 seconds, but does not hit bed. -: 2=Some effort against gravity; limb cannot get to or maintain position. -: 3=No effort against gravity; limb falls. -: 4=No movement. -: UN=Amputation, joint fusion, explain in comments. 5. Responses (left arm): 0 5. Motor Functions (right arm): Alternate sides and extend each arm with palms down (90 degrees if sitting or 45 degrees for supine). -: 0=No drift;limb holds for full 10 seconds. -: 1=Drift; limb holds but drifts down before full 10 seconds, but does not hit bed. -: 2=Some effort against gravity; limb cannot get to or maintain position. -: 3=No effort against gravity; limb falls. -: 4=No movement. -: UN=Amputation, joint fusion, explain in comments. 5. Responses (right arm): 1 6. Motor Functions (left leg): With patient lying supine, alternate sides and extend each leg (30 degrees always while supine). -: 0=No drift, leg holds position for full 5 seconds -: 1=Drift; leg falls before full 5 seconds but does not hit bed. -: 2=Some effort against gravity, leg falls to bed but some effort against gravity. -: 3=No effort against gravity, leg falls to bed immediately. -: 4=No movement. -: UN=Amputation, joint fusion; explain in comments. 6. Responses (left leg): 0 6. Motor Functions (right leg): With patient lying supine, alternate sides and extend each leg (30 degrees always while supine). -: 0=No drift, leg holds position for full 5 seconds -: 1=Drift; leg falls before full 5 seconds but does not hit bed. -: 2=Some effort against gravity, leg falls to bed but some effort against gravity. -: 3=No effort against gravity, leg falls to bed immediately. -: 4=No movement. -: UN=Amputation, joint fusion; explain in comments. 6. Responses (right leg): 1 7. Limb Ataxia: With eyes open instruct patient to: -: a. "Touch your finger to your nose". -: b. "Touch your heel to your cruz" -: 0=Absent -: 1=Present in one limb. -: 2=Present in two limbs. -: UN=Amputation or joint fusion; explain in comments. 7. Responses: 0 8. Sensory: Test sensation using pinprick or noxious stimuli. Test as many body parts as possible. -: 0=Normal;no sensory loss -: 1=Mile to moderate sensory loss (patient feels pin prick but is less sharp on affected side). -: 2=Severe or total sensory loss. 8. Responses: 0 9. Best Language: Instruct patient to: -: a. "Describe what you see in this picture." -: b. "Name the items in this picture." -: c. "Read these sentences." -: 0=No aphasia, normal -: 1=Mild to moderate aphasia. -: 2=Severe aphasia -: 3=Mute, global aphasia, no usable speech or auditory comprehension. 9. Responses: 1 10. Articulation, Dysarthia: Instruct patient to: -: "Read these words" or "Repeat these words" -: 0=Normal -: 1=Mild to moderate; patient may slur some words but can be understood without difficulty. -: 2=Severe; patients speech so slurred as to be unintelligible in the absence of dysphasia. -: UN=Intubated or other physical barrier, explain in comments. 10. Responses: 0 11. Extinction or inattention: 0=No abnormality -: 1= Visual, tactile, auditory, spatial, or personal inattention or extinction to bilateral simulation in one or the sensory modalities. -: 2=Profound nelson-inattention or nelson-inattention to more than one modality; does not recognize own hand. 11. Responses: 0 Total Score: 6 Discharge - Discharge Clinical Impression: CVA (cerebral vascular accident) Qualifiers: CVA mechanism: embolism Qualified Code(s): I63.9 - Cerebral infarction, unspecified Hypertension Qualifiers: Hypertension type: unspecified Qualified Code(s): I10 - Essential (primary) hypertension Diabetes Qualifiers: Diabetes mellitus type: type 2 Diabetes mellitus supervisor intermediates insulin use: without jail use Diabetes mellitus complication status: without complication Qualified Code(s): E11.9 - Type 2 diabetes mellitus without complications Condition: Good Disposition: ADMITTED INPATIENT Admitting Provider: Clyde (Hospitalist) Unit Admitted: Telemetry
[2020-07-25 15:47] LABS: INTERNATIONAL RATION (INR) 0.87; PARTIAL THROMBOPLASTIN TIME 26.4 SEC (23.5-35.8); PROTHROMBIN TIME 12.1 SEC (11.4-15.4)
[2020-07-25 16:00] LABS: ALKALINE PHOSPHATASE 92 U/L (38-126); ANION GAP 5 (5-19); ASPARTATE AMINO TRANSFERASE 26 U/L (17-59); BILIRUBIN,DIRECT 0.1 mg/dL (0.0-0.4); BILIRUBIN,TOTAL 0.4 mg/dL (0.2-1.3); BLOOD UREA NITROGEN 15 mg/dL (7-20); CALCIUM 9.9 mg/dL (8.4-10.2); CARBON DIOXIDE 29 mmol/L (22-30); CHLORIDE 101 mmol/L (98-107); CREATINE KINASE 386 U/L (55-170); GLUCOSE 295 mg/dL (75-110); POTASSIUM 4.4 mmol/L (3.6-5.0); TOTAL PROTEIN 7.1 g/dL (6.3-8.2)
[2020-07-25 16:08] LABS: CREATINE KINASE MB 3.27 ng/mL (<4.55)
[2020-07-25 16:12] LABS: TROPONIN I 0.022 ng/mL
[2020-07-25] MEDS ORDERED: ASPIRIN 300 MG SUPP, RECTAL PR ONE (18:00)
--- NOTE | 2020-07-25 18:02 | RADIOLOGY REPORT (SQ) ---
EXAM DESCRIPTION: MRI HEAD WITHOUT IMAGES COMPLETED DATE/TIME: 07/25/2020 5:49 pm REASON FOR STUDY: stroke like symptoms. COMPARISON: CT 07/25/2020 TECHNIQUE: Multiplanar imaging includes non-contrasted T1, T2, FLAIR, and diffusion with ADC map seq uences. Images stored on PACS. LIMITATIONS: Patient was unable to completely cooperate and complete the study. FINDINGS: ANATOMY: No anomalies. Normal vascular flow voids. Pituitary fossa normal. CSF SPACES: Normal in size and contour. No hemorrhage. CEREBRUM: Sulci and gyri normal in size and contour. Areas of increased white matter signal on FLAIR imaging. Old lacunar infarctions in the basal ganglia. No evidence of hemorrhage, mass, or extraax ial fluid collection. POSTERIOR FOSSA: No signal alteration. No hemorrhage. No edema, masses or mass effect. Internal lorraine tory canals, cerebello-pontine angles, mastoids normal. DIFFUSION IMAGING: There are multiple small areas abnormal diffusion in the left cerebral hemisphere. ORBITS: No masses. Globes normal. PARANASAL SINUSES: No fluid levels. Mucosa normal. OTHER: No other significant finding. IMPRESSION: There are multiple small areas of abnormal diffusion in the left cerebral hemispheric eagle ggesting acute embolic strokes. EVIDENCE OF ACUTE STROKE: Yes LEFT MCA TECHNICAL DOCUMENTATION: JOB ID: [id number] [email or web address]- All Rights Reserved Reading location - IP/workstation name: [email or web address]
[2020-07-25] MEDS ORDERED: ONDANSETRON 4 MG TAB.RAPDIS PO PRN (18:28)
[2020-07-25] MEDS ORDERED: ACETAMINOPHEN 325 MG TABLET PO PRN (18:28)
[2020-07-25] MEDS ORDERED: ONDANSETRON HCL INJ/PF 4 MG/2 ML SDV IV PRN (18:28)
[2020-07-25] MEDS ORDERED: IPRATROPIUM/ALBUTEROL 0.5-2.5 MG/3 ML AMPUL NEB PRN (18:28)
--- NOTE | 2020-07-25 19:35 | PDOC H&P ---
History of Present Illness Admission Date/PCP: 07/25/20 18:33 CLAUDIA THRASHER, AGENC[employer] SALES [employer]-C History of Present Illness: ESE ROSE is a 54 year old male with past medical history significant for previous CVA, HTN, HLD, T2DM, WA status post stents, tobacco abuse who presents to the ED with a 5-day history progressive right-sided upper extremity weakness, slurred speech, and mild confusion. Patient brought in by his friends and family as patient was initially refusing to come to the hospital for the past few days since . On , patient reportedly started having symptoms and was encouraged to go to the ED by his family however he refused. He presents today due to worsening of the symptoms. CT head was unremarkable however MRI of the brain showed multiple small acute CVA consistent with embolic source. Patient denies any history of A. fib. He is on a blood thinner. Patient states he is taking all his medications as prescribed. EKG showed normal sinus rhythm. Patient choked on initial bedside swallow evaluation and he is now n.p.o. He will remain n.p.o. until speech therapy can evaluate him tomorrow. Patient will possibly need rehab facility at discharge due to right upper extremity notable weakness and slurred speech. Echocardiogram and carotid PVL ordered. Progressive hypertension instituted and discussed with nursing. Past Medical History Cardiac Medical History: Reports: Coronary Artery Disease - CARDIAC STENTS, Myocardial Infarction - x2, Hyperlipidema, Hypertension Pulmonary Medical History: Reports: Asthma - MILD Denies: Bronchitis, Chronic Obstructive Pulmonary Disease (COPD), Pneumonia Neurological Medical History: Denies: Seizures Endocrine Medical History: Reports: Diabetes Mellitus Type 1, Diabetes Mellitus Type 2 Musculoskeltal Medical History: Reports: Arthritis - PIPPA KNEES Psychiatric Medical History: Denies: Depression Hematology: Denies: Anemia Past Surgical History Past Surgical History: Reports: Other - TRACH PLACEMENT 20YRS AGO Social History Information Source: Patient, Emergency Med Personnel Smoking Status: Current Every Day Smoker Electronic Cigarette use?: No Frequency of Alcohol Use: Rare Hx Recreational Drug Use: No Drugs: None Hx Prescription Drug Abuse: No - Advance Directive Resuscitation Status: Full Code Surrogate healthcare decision maker:: Admitting diagnosis: Acute CVA All aspects of code status discussed with patient/POA including cardioversion, chest compressions, and intubation and the patient/POA indicated they wish to be full code MPOA is designated as: BrotherZac Time spent: Greater than 16 minutes Family History Family History: Reviewed & Not Pertinent Parental Family History Reviewed: Yes Children Family History Reviewed: Yes Sibling(s) Family History Reviewed.: Yes Medication/Allergy Home Medications: Aspirin [Ecotrin 81 mg EC Tablet] 81 mg PO DAILY #30 tabec 10/19/18 Atorvastatin Calcium [Lipitor 80 mg Tablet] 80 mg PO QHS 07/25/20 Hydrochlorothiazide [Hydrodiuril 25 mg Tablet] 25 mg PO QAM 07/25/20 Insulin Aspart [Novolog Flexpen] 0 unit SUBCUT .SLD SCALE 07/25/20 Metoprolol Tartrate [Lopressor 25 mg Tablet] 25 mg PO DAILY 07/25/20 Allergies/Adverse Reactions: No Known Allergies Allergy (Verified 06/04/19 11:10) Review of Systems All systems: reviewed and no additional remarkable complaints except as stated - Per HPI otherwise negative Physical Exam Vital Signs: Temp Pulse Resp BP Pulse Ox 97.8 F 84 16 145/72 H 100 07/25/20 16:40 07/25/20 16:34 07/25/20 16:34 07/25/20 16:34 07/25/20 16:34 Intake & Output 07/24/20 07/25/20 07/26/20 06:59 06:59 06:59 Weight 145.15 kg Exam: General appearance: PRESENT: no acute distress, well-developed, well-nourished, Head exam: PRESENT: atraumatic, normocephalic Eye exam: PRESENT: conjunctiva pink. ABSENT: scleral icterus Mouth exam: PRESENT: moist Respiratory exam: PRESENT: clear to auscultation pippa. ABSENT: rales, rhonchi, wheezes Cardiovascular exam: PRESENT: RRR. ABSENT: diastolic murmur, rubs, systolic murmur GI/Abdominal exam: PRESENT: normal bowel sounds, soft. ABSENT: distended, guarding, mass, organolmegaly, rebound, tenderness Neurological exam: PRESENT: alert, awake, oriented to person, oriented to place, oriented to time, oriented to situation; cranial nerves II through XII grossly intact with the exception of significant dysarthria, strength 4/5 right upper extremity otherwise strength 5/5 in left upper extremity and bilateral lower extremities. Sensation appears grossly intact Psychiatric exam: PRESENT: appropriate affect, normal mood Skin exam: PRESENT: dry, intact, warm Results Laboratory Results: 07/25/20 15:25 07/25/20 15:25 07/25/20 07/25/20 15:25 15:25 WBC 8.2 RBC 5.60 H Hgb 12.8 L Hct 40.1 MCV 72 L MCH 22.9 L MCHC 32.0 RDW 15.9 H Plt Count 237 Seg Neutrophils % 47.6 Sodium 135.1 L Potassium 4.4 Chloride 101 Carbon Dioxide 29 Anion Gap 5 BUN 15 Creatinine 0.75 Est GFR ( Amer) > 60 Glucose 295 H Calcium 9.9 Total Bilirubin 0.4 AST 26 Alkaline Phosphatase 92 Total Protein 7.1 Albumin 4.0 07/25/20 07/25/20 15:25 15:25 Creatine Kinase 386 H CK-MB (CK-2) 3.27 Troponin I 0.022 Impressions: Chest X-Ray 07/25/20 00:00 IMPRESSION: Negative chest allowing for low lung volumes. Head CT 07/25/20 00:00 IMPRESSION: Moderate chronic changes of atrophy and microvascular disease. No acute intracranial event. EVIDENCE OF ACUTE STROKE: NO. Head MRI 07/25/20 15:47 IMPRESSION: There are multiple small areas of abnormal diffusion in the left cerebral hemispheric suggesting acute embolic strokes. EVIDENCE OF ACUTE STROKE: Yes LEFT MCA Assessment and Plan - Diagnosis (1) CVA (cerebral vascular accident) Qualifiers: CVA mechanism: embolism Qualified Code(s): I63.9 - Cerebral infarction, unspecified Is this a current diagnosis for this admission?: Yes Plan: -Admitted for CVA seen on imaging -NIHSS on Admit: 6 -tPA not given due to symptoms starting several days ago -ASA, Statin -Lipid Panel -Carotid PVL -TTE -CT Head showed no acute findings -MRI Brain showed multiple small acute likely embolic strokes -Permissive HTN goal < 220/120 for 48hrs post-sx's onset, unclear if he experienced any acute strokes today as well as on gi. PT/OT/ST (2) Tobacco abuse Is this a current diagnosis for this admission?: Yes Plan: Counseled on cessation (3) T2DM (type 2 diabetes mellitus) Is this a current diagnosis for this admission?: Yes Plan: Sliding scale insulin and Accu-Cheks A1c (4) History of WA (myocardial infarction) Is this a current diagnosis for this admission?: Yes Plan: History of coronary stents per patient (5) Diabetes Qualifiers: Diabetes mellitus type: type 2 Diabetes mellitus termite control service representative insulin use: without fci use Diabetes mellitus complication status: without complication Qualified Code(s): E11.9 - Type 2 diabetes mellitus without complications Is this a current diagnosis for this admission?: Yes (6) Hypertension Qualifiers: Hypertension type: unspecified Qualified Code(s): I10 - Essential (primary) hypertension Is this a current diagnosis for this admission?: Yes Plan: Permissive hypertension until 48 hours after stroke (7) Super obese Is this a current diagnosis for this admission?: Yes Plan: BMI greater than 50 (8) History of CVA (cerebrovascular accident) Is this a current diagnosis for this admission?: Yes - Time Time Spent with patient: 35 or more minutes Smoking Cessation Education: 3 to 10 minutes Medications reviewed and adjusted accordingly: Yes Anticipated Discharge Disposition: [facility] Facility Anticipated Discharge Timeframe: within 72 hours - Inpatient Certification Based on my medical assessment, after consideration of the patient's comorbidities, presenting symptoms, or acuity I expect that the services needed warrant INPATIENT care.: Yes I certify that my determination is in accordance with my understanding of Medicare's requirements for reasonable and necessary INPATIENT services [42 CFR 412.3e].: Yes Medical Necessity: Significant Comorbidiites Make Outpatient Treatment Too Risky, Need Close Monitoring Due to Risk of Patient Decompensation, Need for Neurological Checks, Risk of Complication if Not Cared For in Hospital, Risk of Diagnosis Which Will Require Inpatient Eval/Care/Monitoring
--- NOTE | 2020-07-25 19:45 | EKG REPORT ---
SEVERITY:- ABNORMAL ECG - SINUS RHYTHM NONSPECIFIC INTRAVENTRICULAR CONDUCTION DELAY : Confirmed by: Hira Merino MD 25-Jul-2020 19:44:44
[2020-07-25 19:50] LABS: CHOLESTEROL 208.11 mg/dL (0-200); TRIGLYCERIDES 150 mg/dL (<150)
[2020-07-25 20:01] LABS: DIRECT LDL 149 mg/dL (<100)
[2020-07-25] MEDS: INSULIN LISPRO 100 UNIT/ML 3 ML VIAL SUBCUT SCH (22:30)
[2020-07-25] MEDS: ATORVASTATIN CALCIUM 40 MG TABLET PO SCH (22:32)
[2020-07-26 06:36] LABS: ABSOLUTE EOSINOPHILS # (AUTO) 0.2 10^3/uL (0.0-0.6); ABSOLUTE LYMPHOCYTES (AUTO) 3.3 10^3/uL (0.5-4.7); ABSOLUTE MONOCYTES (AUTO) 0.6 10^3/uL (0.1-1.4); ABSOLUTE NEUT (AUTO) 3.6 10^3/uL (1.7-8.2); BASOPHILS % (AUTO) 0.4 % (0-2); EOSINOPHILS % (AUTO) 2.7 % (0-6); HEMATOCRIT 40.8 % (37.9-51.0); HEMOGLOBIN 13.2 g/dL (13.5-17.0); LYMPHOCYTES % (AUTO) 42.5 % (13-45); MEAN CORPUSCULAR HGB CONC 32.3 g/dL (32.0-36.0); MEAN CORPUSCULAR VOLUME 71 fl (80-97); MONOCYTES % (AUTO) 8.1 % (3-13); PLATELET COUNT 234 10^3/uL (150-450); RED BLOOD COUNT 5.72 10^6/uL (4.35-5.55); RED CELL DISTRIBUTION WIDTH 15.7 % (11.5-14.0); SEGMENTED NEUTROPHILS % (AUTO) 46.3 % (42-78); TOTAL CELLS COUNTED % (AUTO) 100 %; WHITE BLOOD COUNT 7.7 10^3/uL (4.0-10.5)
[2020-07-26 07:04] LABS: ANION GAP 6 (5-19); BLOOD UREA NITROGEN 14 mg/dL (7-20); CALCIUM 9.8 mg/dL (8.4-10.2); CARBON DIOXIDE 29 mmol/L (22-30); CHLORIDE 103 mmol/L (98-107); GLUCOSE 217 mg/dL (75-110); PHOSPHORUS 3.5 mg/dL (2.5-4.5); POTASSIUM 4.2 mmol/L (3.6-5.0)
[2020-07-26] MEDS: INSULIN LISPRO 100 UNIT/ML 3 ML VIAL SUBCUT SCH ×5 (11:10→22:09)
[2020-07-26] MEDS: DOCUSATE SODIUM 100 MG CAPSULE PO SCH (11:12)
--- NOTE | 2020-07-26 12:08 | RADIOLOGY REPORT (SQ) ---
EXAM DESCRIPTION: COOKIE SWALLOW IMAGES COMPLETED DATE/TIME: 07/26/2020 11:45 am REASON FOR STUDY: CVA, failed screen COMPARISON: None. TECHNIQUE: Videofluoroscopic swallowing examination was performed in conjunction with speech patholo gy. Videofluoroscopic imaging was obtained and reviewed and these are the findings: RADIATION DOSE: Fluoro time 3.1 minutes 1 images saved to PACS. LIMITATIONS: None FINDINGS: The patient was brought into the fluoro room and placed upright on a modified barium swall ow chair. The patient was then given multiple consistencies mixed with barium to swallow under live fluoroscopic video guidance. According to the Speech Pathologist there was deep laryngeal penetratio n seen with thin and nectar thick consistencies. No definite aspiration identified. Thicker consist encies were swallowed without incident. Please refer to the speech pathology report for further deta ils. IMPRESSION: DEEP LARYNGEAL PENETRATION, WITHOUT ASPIRATION, SEEN WITH THIN AND NECTAR THICK CONSISTE NCIES. PLEASE SEE SPEECH PATHOLOGIST REPORT FOR OTHER FINDINGS AND RECOMMENDATIONS. COMMENT: None Quality ID [id number]: Final reports for procedures using fluoroscopy that document radiation exposure wilfrid brigido, or exposure time and number of fluorographic images (if radiation exposure indices are not avail able) TECHNICAL DOCUMENTATION: JOB ID: [id number] 2010 [employer]- All Rights Reserved Reading location - IP/workstation name: [email or web address] [id number]
[2020-07-26] MEDS: ENOXAPARIN SODIUM INJ 40 MG/0.4 ML DISP.SYRIN SUBCUT SCH (12:13)
[2020-07-26] MEDS: ASPIRIN 300 MG SUPP, RECTAL PR SCH (12:13)
--- NOTE | 2020-07-26 12:18 | PDOC PROGRESS REPORT ---
Subjective Date:: 07/26/20 Subjective:: 54 year old male with past medical history significant for previous CVA, HTN, HL D, T2DM, AK status post stents, tobacco abuse who presents to the ED with a 5- day history progressive right-sided upper extremity weakness, slurred speech, and mild confusion. Patient brought in by his friends and family as patient was initially refusing to come to the hospital for the past few days since . On , patient reportedly started having symptoms and was encouraged to go to the ED by his family however he refused. He presents today due to worsening of the symptoms. CT head was unremarkable however MRI of the brain showed multiple small acute CVA consistent with embolic source. Patient denies any history of A. fib. He is on a blood thinner. Patient states he is taking all his medications as prescribed. EKG showed normal sinus rhythm. Patient choked on initial bedside swallow evaluation and he is now n.p.o. He will remain n.p.o. until speech therapy can evaluate him tomorrow. Patient will possibly need rehab facility at discharge due to right upper extremity notable weakness and slurred speech. Echocardiogram and carotid PVL ordered. Progressive hypertension instituted and discussed with nursing. 07/[id number]oft[age]-old male with previous history of CVA, hypertension, obesity, diabetes mellitus, AK with a stent placements, smoker admitted with progressive right upper arm weakness. CT head was negative MRI positive for a minute acute stroke of embolic in nature. Carotid Doppler and echocardiogram pending. Comfortably in the bed communicating well. Physical therapy working with the patient. Speech consult was done will follow the recommendations. Reason For Visit: MULTIPLE ACUTE EMBOLIC STROKES, HYPERTENSION Physical Exam Vital Signs: Temp Pulse Resp BP Pulse Ox 97.6 F 52 L 16 146/81 H 100 07/26/20 08:21 07/26/20 10:53 07/26/20 10:53 07/26/20 08:21 07/26/20 10:53 Intake & Output 07/25/20 07/26/20 07/27/20 06:59 06:59 06:59 Output Total 100 Balance -100 Weight 160.7 kg General appearance: PRESENT: no acute distress, morbidly obese Head exam: PRESENT: atraumatic Eye exam: PRESENT: PERRLA Mouth exam: PRESENT: moist, tongue midline Teeth exam: PRESENT: poor dentation Neck exam: ABSENT: carotid bruit, JVD, lymphadenopathy, thyromegaly Respiratory exam: PRESENT: decreased breath sounds Cardiovascular exam: PRESENT: RRR. ABSENT: diastolic murmur, rubs, systolic murmur GI/Abdominal exam: PRESENT: normal bowel sounds, soft. ABSENT: distended, guarding, mass, organolmegaly, rebound, tenderness Rectal exam: PRESENT: deferred Extremities exam: PRESENT: full ROM. ABSENT: calf tenderness, clubbing, pedal edema Neurological exam: PRESENT: alert, awake, oriented to person, oriented to place, oriented to time, oriented to situation, CN II-XII grossly intact. ABSENT: motor sensory deficit Psychiatric exam: PRESENT: appropriate affect, normal mood. ABSENT: homicidal ideation, suicidal ideation Results Laboratory Results: 07/26/20 06:27 07/26/20 06:27 07/25/20 07/25/20 07/25/20 15:25 15:25 15:25 WBC 8.2 RBC 5.60 H Hgb 12.8 L Hct 40.1 MCV 72 L MCH 22.9 L MCHC 32.0 RDW 15.9 H Plt Count 237 Seg Neutrophils % 47.6 Sodium 135.1 L Potassium 4.4 Chloride 101 Carbon Dioxide 29 Anion Gap 5 BUN 15 Creatinine 0.75 Est GFR ( Amer) > 60 Glucose 295 H Calcium 9.9 Phosphorus Magnesium Total Bilirubin 0.4 AST 26 Alkaline Phosphatase 92 Total Protein 7.1 Albumin 4.0 Triglycerides 150 Cholesterol 208.11 H LDL Cholesterol Direct 149 H VLDL Cholesterol 30.0 HDL Cholesterol 47 TSH 07/26/20 07/26/20 07/26/20 06:27 06:27 06:27 WBC 7.7 RBC 5.72 H Hgb 13.2 L Hct 40.8 MCV 71 L MCH 23.0 L MCHC 32.3 RDW 15.7 H Plt Count 234 Seg Neutrophils % 46.3 Sodium 137.7 Potassium 4.2 Chloride 103 Carbon Dioxide 29 Anion Gap 6 BUN 14 Creatinine 0.76 Est GFR ( Amer) > 60 Glucose 217 H Calcium 9.8 Phosphorus 3.5 Magnesium 1.9 Total Bilirubin AST Alkaline Phosphatase Total Protein Albumin Triglycerides Cholesterol LDL Cholesterol Direct VLDL Cholesterol HDL Cholesterol TSH 0.98 07/25/20 07/25/20 15:25 15:25 Creatine Kinase 386 H CK-MB (CK-2) 3.27 Troponin I 0.022 Impressions: Chest X-Ray 07/25/20 00:00 IMPRESSION: Negative chest allowing for low lung volumes. Head CT 07/25/20 00:00 IMPRESSION: Moderate chronic changes of atrophy and microvascular disease. No acute intracranial event. EVIDENCE OF ACUTE STROKE: NO. Head MRI 07/25/20 15:47 IMPRESSION: There are multiple small areas of abnormal diffusion in the left cerebral hemispheric suggesting acute embolic strokes. EVIDENCE OF ACUTE STROKE: Yes LEFT MCA Modified Barium Swallow 07/26/20 00:00 IMPRESSION: DEEP LARYNGEAL PENETRATION, WITHOUT ASPIRATION, SEEN WITH THIN AND NECTAR THICK CONSISTENCIES. PLEASE SEE SPEECH PATHOLOGIST REPORT FOR OTHER FINDINGS AND RECOMMENDATIONS. Assessment and Plan - Diagnosis (1) CVA (cerebral vascular accident) Qualifiers: CVA mechanism: embolism Qualified Code(s): I63.9 - Cerebral infarction, unspecified Is this a current diagnosis for this admission?: Yes Plan: -Admitted for CVA seen on imaging -NIHSS on Admit: 6 -tPA not given due to symptoms starting several days ago -ASA, Statin -Lipid Panel -Carotid PVL -TTE -CT Head showed no acute findings -MRI Brain showed multiple small acute likely embolic strokes -Permissive HTN goal < 220/120 for 48hrs post-sx's onset, unclear if he experienced any acute strokes today as well as on . PT/OT/ST 07/26/2020-on examination no deficits seen. Patient is comfortably in the bed communicating well. Speech evaluation was done modified barium swallow was done and will follow the recommendations of the speech therapist. PT is working with the patient. Carotid Doppler report is pending, echocardiogram is pending at this time. (2) Tobacco abuse Is this a current diagnosis for this admission?: Yes Plan: Counseled on cessation (3) History of AK (myocardial infarction) Is this a current diagnosis for this admission?: Yes Plan: History of coronary stents per patient (4) T2DM (type 2 diabetes mellitus) Is this a current diagnosis for this admission?: Yes Plan: Sliding scale insulin and Accu-Cheks A1c 07/26/2020-hemoglobin A1c is 9.4. Latest blood sugar is 215. Diet exercise weight loss lifestyle modification discussed with the patient. (5) History of CVA (cerebrovascular accident) Is this a current diagnosis for this admission?: No - Time Anticipated Discharge Disposition: Home with Home Health Anticipated Discharge Timeframe: within 48 hours
--- NOTE | 2020-07-26 13:34 | RADIOLOGY REPORT (SQ) ---
EXAM DESCRIPTION: CAROTID DOPPLER IMAGES COMPLETED DATE/TIME: 07/26/2020 12:51 pm REASON FOR STUDY: vascular disease COMPARISON: None. TECHNIQUE: Grayscale ultrasound, Doppler velocity and spectra, and color Doppler images acquired of the extra-cranial carotid and vertebral arteries. Images stored on PACS. LIMITATIONS: Examination is very limited due to the patient's body habitus and cooperation. Limited evaluation of the bilateral internal carotid arteries. FINDINGS: RIGHT CAROTID CCA Velocities: Within normal limits. ICA Velocities Peak systolic 75 cm/s. End diastolic 27 cm/s. Proximal ICA/CCA peak systolic ratio 0.72. The distal internal carotid artery is not visualized sonographically. LEFT CAROTID CCA Velocities: Within normal limits. ICA Velocities Peak systolic 62 cm/s. End diastolic Not interrogated due to lack of visualization sonographically. Proximal ICA/CCA peak systolic ratio 1.03. The mid and distal segments of the ICA were not visualized sonographically. VERTEBRAL ARTERIES: Antegrade flow. Normal waveforms. SUBCLAVIAN ARTERIES: No finding. OTHER: No other significant finding. IMPRESSION: 1. Non-diagnostic duplex Doppler ultrasound examination. The bilateral internal caroti d arteries are incompletely visualized sonographically. The patient was not very cooperative and exa mination is also limited due to patient's body habitus. Further evaluation with CTA-Neck with IV con trast may be helpful. COMMENT: Quality ID #[id number]: Velocity criteria are extrapolated from the diameter data as defined by t he Society of Radiologists in Ultrasound Consensus Conference. Radiology 2003: 229; 340-346. TECHNICAL DOCUMENTATION: JOB ID: [id number] 2010 [employer]- All Rights Reserved Reading location - IP/workstation name: [email or web address]
--- NOTE | 2020-07-26 15:11 | ST Inp Modified Barium Swallow ---
Medical Diagnosis - Medical Diagnoses Medical Diagnosis Description & ICD-10 Code(s): CVA - ICD-10 Tx Diagnosis Coding (1) Dysphagia ICD-10 Code(s): R13.10 - DYSPHAGIA, UNSPECIFIED (2) CVA (cerebral vascular accident) ICD-10 Code(s): I63.9 - CEREBRAL INFARCTION, UNSPECIFIED (3) History of CVA (cerebrovascular accident) ICD-10 Code(s): Z86.73 - PRSNL HX OF TIA (TIA), AND CEREB INFRC W/O RESID DEFICITS Inpatient [facility] – [place], [place] - General Date: 07/26/20 Date of Onset: 07/21/20 - History Medical History: per EMR: patient admitted 07/25 with progressive right side weakness x5 days, with slurred speech and mild confusion. Prior medical history includes CVA, HTN, HLD, diabetes, CA s/p stents, tobacco abuse, remote history of tracheostomy (20 years post). MRI showed left MCA, likely embolic. Patient failed his nursing swallow screen and is currently NPO. Per nursing, patient needs to be reoriented frequently. At bedside, the patient demonstrated consistent cough following all PO trials. Medications: Medications Reviewed Allergies: No known allergies - Subjective Current Nutritional Means: NPO Current PO Diet: N/A (NPO) Current Symptoms: Coughing - failed nursing swallow screen Pain: Patient reports, 0/5 - Objective Assessment: Upright, Left Lateral - Food Trials Food Trials Used: Thin liquids, [place] thick liquids, Pureed, Regular The Patient: Required Assist - Assessment Labial Function: Impaired Lingual Function: Within Functional Limits Mandibular Function: Within Functional Limits Dentition: Partial Laryngeal Function: Weak Cough - Pharyngeal Stage Initiation of Pharyngeal Stage: Delayed Decreased Laryngeal Elevation: Yes - mild Reduced Velo-Pharyngeal Closure: no Reduced Pressure Generation: No Reduced Tongue Base Retraction: No Pre-Swallowing Pooling in Valleculae: Moderate Pre-Swallowing Pooling in Pyriforms: Mild Reduced Thyro-Hyiod Approximation: No Reduced Epiglottic Excursion: Yes - mild, inconsistent Reduced Pharyngeal Peristalsis: No Multiple Swallows With: Effective Post Swallow Residuals in Valleculae: Mild Post Swallow Residuals in Pyriforms: Mild - Impression/Summary Laryngeal Penetration: Yes - deep penetration seen at times with thin and nectar thick liquids, also trace penetration seen with residuals after the swallow from valleculae and pyriform sinus. No cough reaction seen on study with penetration. Tracheal Aspiration: no Patient Presents With: Pharyngeal stage dysph. - mild Risk of Aspiration: Mild - Recommendations Solid Diet Recommendations: Mechanical Soft Liquid Diet Recommendations: Thin Strict Aspitarion Precautions: Yes Dysphagia Therapy with WINCH OPERATOR: Follow Up PRN Recommended Techniques: Fully Upright During Meal, Med Crushed in Applesauce, Small Bites and Sips Supervision: Distant Other Recommendations: Plan to follow up x1 to ensure diet tolerance. Should additional concerns arise, may increase treatment frequency. Due to mild swallow delay resulting in deep penetration of liquids, strict aspiration precautions are recommended. Patint was observed to take sequential straw sips of thin liquid without aspiration. - Time Total Time: 30 Total Timed Minutes: 30
[2020-07-26] MEDS ORDERED: INSULIN GLARGINE,HUM.REC.ANLOG 1,000 UNIT/10 ML VIAL SUBCUT SCH (22:00)
[2020-07-26] MEDS: ATORVASTATIN CALCIUM 40 MG TABLET PO SCH (22:09)
[2020-07-27 07:11] LABS: ALBUMIN 4.1 g/dL (3.5-5.0); ALKALINE PHOSPHATASE 87 U/L (38-126); ANION GAP 8 (5-19); ASPARTATE AMINO TRANSFERASE 29 U/L (17-59); BILIRUBIN,DIRECT 0.1 mg/dL (0.0-0.4); BILIRUBIN,TOTAL 0.7 mg/dL (0.2-1.3); BLOOD UREA NITROGEN 13 mg/dL (7-20); CALCIUM 9.7 mg/dL (8.4-10.2); CARBON DIOXIDE 26 mmol/L (22-30); CHLORIDE 103 mmol/L (98-107); GLUCOSE 218 mg/dL (75-110); POTASSIUM 4.2 mmol/L (3.6-5.0); TOTAL PROTEIN 6.7 g/dL (6.3-8.2)
[2020-07-27] MEDS: INSULIN LISPRO 100 UNIT/ML 3 ML VIAL SUBCUT SCH ×4 (07:55→21:24)
[2020-07-27] MEDS ORDERED: INFLUENZA QUAD (6MOS+) 2020-21 VAC 0.5 ML SYR IM ONE (08:00)
--- NOTE | 2020-07-27 09:50 | PDOC PROGRESS REPORT ---
Subjective Date:: 07/27/20 Subjective:: 54 year old male with past medical history significant for previous CVA, HTN, HL D, T2DM, MD status post stents, tobacco abuse who presents to the ED with a 5- day history progressive right-sided upper extremity weakness, slurred speech, and mild confusion. Patient brought in by his friends and family as patient was initially refusing to come to the hospital for the past few days since . On , patient reportedly started having symptoms and was encouraged to go to the ED by his family however he refused. He presents today due to worsening of the symptoms. CT head was unremarkable however MRI of the brain showed multiple small acute CVA consistent with embolic source. Patient denies any history of A. fib. He is on a blood thinner. Patient states he is taking all his medications as prescribed. EKG showed normal sinus rhythm. Patient choked on initial bedside swallow evaluation and he is now n.p.o. He will remain n.p.o. until speech therapy can evaluate him tomorrow. Patient will possibly need rehab facility at discharge due to right upper extremity notable weakness and slurred speech. Echocardiogram and carotid PVL ordered. Progressive hypertension instituted and discussed with nursing. 07/26/[id number]-old male with previous history of CVA, hypertension, obesity, diabetes mellitus, MD with a stent placements, smoker admitted with progressive right upper arm weakness. CT head was negative MRI positive for a minute acute stroke of embolic in nature. Carotid Doppler and echocardiogram pending. Comfortably in the bed communicating well. Physical therapy working with the patient. Speech consult was done will follow the recommendations. 07/27/[id number]-old male admitted with acute stroke. MRI indicated of acute stroke may be secondary to emboli. Carotid Doppler is negative for gnosis. Echocardiogram is pending at this time. PT is comfortably in the chair communicating well. Reason For Visit: MULTIPLE ACUTE EMBOLIC STROKES, HYPERTENSION Physical Exam Vital Signs: Temp Pulse Resp BP Pulse Ox 97.9 F 62 18 156/83 H 99 07/27/20 07:50 07/27/20 07:41 07/27/20 07:41 07/27/20 07:41 07/27/20 07:41 Intake & Output 07/26/20 07/27/20 07/28/20 06:59 06:59 06:59 Intake Total 418 Output Total 100 Balance -100 418 Weight 160.7 kg 161.4 kg General appearance: PRESENT: no acute distress, morbidly obese Head exam: PRESENT: atraumatic Eye exam: PRESENT: PERRLA Mouth exam: PRESENT: moist, tongue midline Teeth exam: PRESENT: poor dentation Neck exam: ABSENT: carotid bruit, JVD, lymphadenopathy, thyromegaly Respiratory exam: PRESENT: decreased breath sounds Cardiovascular exam: PRESENT: RRR. ABSENT: diastolic murmur, rubs, systolic murmur GI/Abdominal exam: PRESENT: normal bowel sounds, soft. ABSENT: distended, guarding, mass, organolmegaly, rebound, tenderness Rectal exam: PRESENT: deferred Extremities exam: PRESENT: full ROM. ABSENT: calf tenderness, clubbing, pedal edema Neurological exam: PRESENT: alert, awake, oriented to person, oriented to place, oriented to time, oriented to situation, CN II-XII grossly intact. ABSENT: motor sensory deficit Psychiatric exam: PRESENT: appropriate affect, normal mood. ABSENT: homicidal ideation, suicidal ideation Results Laboratory Results: 07/26/20 06:27 07/27/20 06:15 07/27/20 06:15 Sodium 136.6 L Potassium 4.2 Chloride 103 Carbon Dioxide 26 Anion Gap 8 BUN 13 Creatinine 0.71 Est GFR ( Amer) > 60 Glucose 218 H Calcium 9.7 Magnesium 1.9 Total Bilirubin 0.7 AST 29 Alkaline Phosphatase 87 Total Protein 6.7 Albumin 4.1 07/25/20 07/25/20 15:25 15:25 Creatine Kinase 386 H CK-MB (CK-2) 3.27 Troponin I 0.022 Impressions: Chest X-Ray 07/25/20 00:00 IMPRESSION: Negative chest allowing for low lung volumes. Head CT 07/25/20 00:00 IMPRESSION: Moderate chronic changes of atrophy and microvascular disease. No acute intracranial event. EVIDENCE OF ACUTE STROKE: NO. Head MRI 07/25/20 15:47 IMPRESSION: There are multiple small areas of abnormal diffusion in the left cerebral hemispheric suggesting acute embolic strokes. EVIDENCE OF ACUTE STROKE: Yes LEFT MCA Carotid Doppler Study 07/26/20 00:00 IMPRESSION: 1. Non-diagnostic duplex Doppler ultrasound examination. The bilateral internal carotid arteries are incompletely visualized sonographically. The patient was not very cooperative and examination is also limited due to patient's body habitus. Further evaluation with CTA-Neck with IV contrast may be helpful. Modified Barium Swallow 07/26/20 00:00 IMPRESSION: DEEP LARYNGEAL PENETRATION, WITHOUT ASPIRATION, SEEN WITH THIN AND NECTAR THICK CONSISTENCIES. PLEASE SEE SPEECH PATHOLOGIST REPORT FOR OTHER FINDINGS AND RECOMMENDATIONS. Assessment and Plan - Diagnosis (1) CVA (cerebral vascular accident) Qualifiers: CVA mechanism: embolism Qualified Code(s): I63.9 - Cerebral infarction, unspecified Is this a current diagnosis for this admission?: Yes Plan: -Admitted for CVA seen on imaging -NIHSS on Admit: 6 -tPA not given due to symptoms starting several days ago -ASA, Statin -Lipid Panel -Carotid PVL -TTE -CT Head showed no acute findings -MRI Brain showed multiple small acute likely embolic strokes -Permissive HTN goal < 220/120 for 48hrs post-sx's onset, unclear if he experienced any acute strokes today as well as on Thanksgiving. PT/OT/ST 07/26/2020-on examination no deficits seen. Patient is comfortably in the bed communicating well. Speech evaluation was done modified barium swallow was done and will follow the recommendations of the speech therapist. PT is working with the patient. Carotid Doppler report is pending, echocardiogram is pending at this time. 07/27/2020-patient is presently on thin liquids after modified barium swallow was done. On examination no focal neuro deficits present. On aspirin, atorvastatin. On DVT prophylaxis. Plan is to continue the present management at this time. (2) Tobacco abuse Is this a current diagnosis for this admission?: Yes Plan: Counseled on cessation (3) History of MD (myocardial infarction) Is this a current diagnosis for this admission?: Yes Plan: History of coronary stents per patient (4) T2DM (type 2 diabetes mellitus) Is this a current diagnosis for this admission?: No Plan: Sliding scale insulin and Accu-Cheks A1c 07/26/2020-hemoglobin A1c is 9.4. Latest blood sugar is 215. Diet exercise weight loss lifestyle modification discussed with the patient. 07/27/2020-hemoglobin A1c is 9.4. Latest blood sugar is 218. Patient is presently on 6 units of twice a day. Plan is to increase the dose to 10 units twice a day. To continue insulin sliding scale before meals and at bedtime. (5) History of CVA (cerebrovascular accident) Is this a current diagnosis for this admission?: No (6) Super obese Is this a current diagnosis for this admission?: No Plan: BMI greater than 50 (7) Hypertension Qualifiers: Hypertension type: unspecified Qualified Code(s): I10 - Essential (primary) hypertension Is this a current diagnosis for this admission?: No Plan: Permissive hypertension until 48 hours after stroke 07/27/20-latest blood pressure is 153/90. To continue to closely monitor the blood pressures at this time. - Time Anticipated Discharge Disposition: Home with Home Health Anticipated Discharge Timeframe: within 48 hours
[2020-07-27] MEDS: METOPROLOL TARTRATE 25 MG TABLET PO SCH (10:50)
[2020-07-27] MEDS: ENOXAPARIN SODIUM INJ 40 MG/0.4 ML DISP.SYRIN SUBCUT SCH (10:50)
[2020-07-27] MEDS: DOCUSATE SODIUM 100 MG CAPSULE PO SCH (10:50)
[2020-07-27] MEDS: INSULIN GLARGINE,HUM.REC.ANLOG 1,000 UNIT/10 ML VIAL SUBCUT SCH ×2 (10:51→21:25)
[2020-07-27] MEDS: ASPIRIN 300 MG SUPP, RECTAL PR SCH (11:51)
[2020-07-27] MEDS: ATORVASTATIN CALCIUM 40 MG TABLET PO SCH (21:25)
[2020-07-28 06:15] LABS: ABSOLUTE BASOPHILS # (AUTO) 0.1 10^3/uL (0.0-0.2); ABSOLUTE EOSINOPHILS # (AUTO) 0.3 10^3/uL (0.0-0.6); ABSOLUTE LYMPHOCYTES (AUTO) 4.6 10^3/uL (0.5-4.7); ABSOLUTE MONOCYTES (AUTO) 0.7 10^3/uL (0.1-1.4); ABSOLUTE NEUT (AUTO) 4.1 10^3/uL (1.7-8.2); BASOPHILS % (AUTO) 0.8 % (0-2); EOSINOPHILS % (AUTO) 2.8 % (0-6); HEMATOCRIT 41.1 % (37.9-51.0); HEMOGLOBIN 13.3 g/dL (13.5-17.0); LYMPHOCYTES % (AUTO) 47.3 % (13-45); MEAN CORPUSCULAR HEMOGLOBIN 23.2 pg (27.0-33.4); MEAN CORPUSCULAR HGB CONC 32.5 g/dL (32.0-36.0); MEAN CORPUSCULAR VOLUME 72 fl (80-97); MONOCYTES % (AUTO) 7.2 % (3-13); PLATELET COUNT 245 10^3/uL (150-450); RED BLOOD COUNT 5.73 10^6/uL (4.35-5.55); SEGMENTED NEUTROPHILS % (AUTO) 41.9 % (42-78); TOTAL CELLS COUNTED % (AUTO) 100 %; WHITE BLOOD COUNT 9.7 10^3/uL (4.0-10.5)
[2020-07-28 06:28] LABS: ANION GAP 9 (5-19); BLOOD UREA NITROGEN 14 mg/dL (7-20); CALCIUM 9.7 mg/dL (8.4-10.2); CARBON DIOXIDE 26 mmol/L (22-30); CHLORIDE 103 mmol/L (98-107); GLUCOSE 187 mg/dL (75-110); POTASSIUM 4.5 mmol/L (3.6-5.0)
[2020-07-28] MEDS: INSULIN LISPRO 100 UNIT/ML 3 ML VIAL SUBCUT SCH ×4 (08:29→21:30)
[2020-07-28] MEDS: HYDROCHLOROTHIAZIDE 25 MG TABLET PO SCH (08:30)
--- NOTE | 2020-07-28 08:37 | PDOC PROGRESS REPORT ---
Subjective Date:: 07/28/20 Subjective:: 54 year old male with past medical history significant for previous CVA, HTN, HL D, T2DM, UT status post stents, tobacco abuse who presents to the ED with a 5- day history progressive right-sided upper extremity weakness, slurred speech, and mild confusion. Patient brought in by his friends and family as patient was initially refusing to come to the hospital for the past few days since . On , patient reportedly started having symptoms and was encouraged to go to the ED by his family however he refused. He presents today due to worsening of the symptoms. CT head was unremarkable however MRI of the brain showed multiple small acute CVA consistent with embolic source. Patient denies any history of A. fib. He is on a blood thinner. Patient states he is taking all his medications as prescribed. EKG showed normal sinus rhythm. Patient choked on initial bedside swallow evaluation and he is now n.p.o. He will remain n.p.o. until speech therapy can evaluate him tomorrow. Patient will possibly need rehab facility at discharge due to right upper extremity notable weakness and slurred speech. Echocardiogram and carotid PVL ordered. Progressive hypertension instituted and discussed with nursing. 07/26/[id number]-old male with previous history of CVA, hypertension, obesity, diabetes mellitus, UT with a stent placements, smoker admitted with progressive right upper arm weakness. CT head was negative MRI positive for a minute acute stroke of embolic in nature. Carotid Doppler and echocardiogram pending. Comfortably in the bed communicating well. Physical therapy working with the patient. Speech consult was done will follow the recommendations. 07/27/[id number]-tjjy-old male admitted with acute stroke. MRI indicated of acute stroke may be secondary to emboli. Carotid Doppler is negative for gnosis. Echocardiogram is pending at this time. PT is comfortably in the chair communicating well. 07/28/2020-patient is comfortably sitting on the edge of the bed eating breakfast. Not communicative much. Reason For Visit: MULTIPLE ACUTE EMBOLIC STROKES, HYPERTENSION Physical Exam Vital Signs: Temp Pulse Resp BP Pulse Ox 97.8 F 64 20 156/101 H 100 07/28/20 07:47 07/28/20 07:47 07/28/20 07:47 07/28/20 07:47 07/28/20 07:47 Intake & Output 07/27/20 07/28/20 07/29/20 06:59 06:59 06:59 Intake Total 418 1569 Output Total 20 Balance 418 1549 Weight 161.4 kg 160.2 kg General appearance: PRESENT: no acute distress, morbidly obese Head exam: PRESENT: atraumatic Eye exam: PRESENT: PERRLA Ear exam: PRESENT: normal external ear exam Mouth exam: PRESENT: neck supple Teeth exam: PRESENT: poor dentation Neck exam: ABSENT: carotid bruit, JVD, lymphadenopathy, thyromegaly Respiratory exam: PRESENT: decreased breath sounds Cardiovascular exam: PRESENT: RRR. ABSENT: diastolic murmur, rubs, systolic murmur GI/Abdominal exam: PRESENT: normal bowel sounds, soft. ABSENT: distended, guarding, mass, organolmegaly, rebound, tenderness Rectal exam: PRESENT: deferred Extremities exam: PRESENT: full ROM. ABSENT: calf tenderness, clubbing, pedal edema Neurological exam: PRESENT: alert, awake, oriented to person, oriented to place, oriented to time, oriented to situation, CN II-XII grossly intact. ABSENT: motor sensory deficit Psychiatric exam: PRESENT: appropriate affect, normal mood. ABSENT: homicidal ideation, suicidal ideation Results Laboratory Results: 07/28/20 05:40 07/28/20 05:40 07/28/20 07/28/20 05:40 05:40 WBC 9.7 RBC 5.73 H Hgb 13.3 L Hct 41.1 MCV 72 L MCH 23.2 L MCHC 32.5 RDW 16.0 H Plt Count 245 Seg Neutrophils % 41.9 L Sodium 137.8 Potassium 4.5 Chloride 103 Carbon Dioxide 26 Anion Gap 9 BUN 14 Creatinine 0.78 Est GFR ( Amer) > 60 Glucose 187 H Calcium 9.7 07/25/20 07/25/20 15:25 15:25 Creatine Kinase 386 H CK-MB (CK-2) 3.27 Troponin I 0.022 Impressions: Chest X-Ray 07/25/20 00:00 IMPRESSION: Negative chest allowing for low lung volumes. Head CT 07/25/20 00:00 IMPRESSION: Moderate chronic changes of atrophy and microvascular disease. No acute intracranial event. EVIDENCE OF ACUTE STROKE: NO. Head MRI 07/25/20 15:47 IMPRESSION: There are multiple small areas of abnormal diffusion in the left cerebral hemispheric suggesting acute embolic strokes. EVIDENCE OF ACUTE STROKE: Yes LEFT MCA Carotid Doppler Study 07/26/20 00:00 IMPRESSION: 1. Non-diagnostic duplex Doppler ultrasound examination. The bilateral internal carotid arteries are incompletely visualized sonographically. The patient was not very cooperative and examination is also limited due to patient's body habitus. Further evaluation with CTA-Neck with IV contrast may be helpful. Modified Barium Swallow 07/26/20 00:00 IMPRESSION: DEEP LARYNGEAL PENETRATION, WITHOUT ASPIRATION, SEEN WITH THIN AND NECTAR THICK CONSISTENCIES. PLEASE SEE SPEECH PATHOLOGIST REPORT FOR OTHER FINDINGS AND RECOMMENDATIONS. Assessment and Plan - Diagnosis (1) CVA (cerebral vascular accident) Qualifiers: CVA mechanism: embolism Qualified Code(s): I63.9 - Cerebral infarction, unspecified Is this a current diagnosis for this admission?: Yes Plan: -Admitted for CVA seen on imaging -NIHSS on Admit: 6 -tPA not given due to symptoms starting several days ago -ASA, Statin -Lipid Panel -Carotid PVL -TTE -CT Head showed no acute findings -MRI Brain showed multiple small acute likely embolic strokes -Permissive HTN goal < 220/120 for 48hrs post-sx's onset, unclear if he experienced any acute strokes today as well as on gi. PT/OT/ST 07/26/2020-on examination no deficits seen. Patient is comfortably in the bed communicating well. Speech evaluation was done modified barium swallow was done and will follow the recommendations of the speech therapist. PT is working with the patient. Carotid Doppler report is pending, echocardiogram is pending at this time. 07/27/2020-patient is presently on thin liquids after modified barium swallow was done. On examination no focal neuro deficits present. On aspirin, atorvastatin. On DVT prophylaxis. Plan is to continue the present management at this time. 07/28/20-patient admitted with a CVA, MRI indicates stroke secondary to embolic source. Echocardiogram report pending. Carotid Dopplers are negative for high- grade stenosis. Continue aspirin, atorvastatin at this time. (2) Tobacco abuse Is this a current diagnosis for this admission?: Yes Plan: Counseled on cessation (3) History of UT (myocardial infarction) Is this a current diagnosis for this admission?: Yes Plan: History of coronary stents per patient (4) T2DM (type 2 diabetes mellitus) Is this a current diagnosis for this admission?: No Plan: Sliding scale insulin and Accu-Cheks A1c 07/26/2020-hemoglobin A1c is 9.4. Latest blood sugar is 215. Diet exercise weight loss lifestyle modification discussed with the patient. 07/27/2020-hemoglobin A1c is 9.4. Latest blood sugar is 218. Patient is presently on 6 units of twice a day. Plan is to increase the dose to 10 units twice a day. To continue insulin sliding scale before meals and at bedtime. 07/28/2020-blood sugar this morning is 187. To continue insulin sliding scale before meals and at bedtime. And is on Lantus 10 units twice a day. (5) History of CVA (cerebrovascular accident) Is this a current diagnosis for this admission?: No (6) Super obese Is this a current diagnosis for this admission?: No Plan: BMI greater than 50 (7) Hypertension Qualifiers: Hypertension type: unspecified Qualified Code(s): I10 - Essential (primary) hypertension Is this a current diagnosis for this admission?: No Plan: Permissive hypertension until 48 hours after stroke 07/27/20-latest blood pressure is 153/90. To continue to closely monitor the blood pressures at this time. 07/28/2020-blood pressure this morning is 165/70. Started on lisinopril 10 mg p.o. daily. To watch the kidney function at this time. Latest creatinine is 0.78. - Time Anticipated Discharge Disposition: Home, Self Care Anticipated Discharge Timeframe: within 72 hours
[2020-07-28] MEDS: LISINOPRIL 10 MG TABLET PO SCH (10:02)
[2020-07-28] MEDS: ENOXAPARIN SODIUM INJ 40 MG/0.4 ML DISP.SYRIN SUBCUT SCH (10:02)
[2020-07-28] MEDS: METOPROLOL TARTRATE 25 MG TABLET PO SCH (10:02)
[2020-07-28] MEDS: INSULIN GLARGINE,HUM.REC.ANLOG 1,000 UNIT/10 ML VIAL SUBCUT SCH ×2 (10:02→21:31)
[2020-07-28] MEDS: ASPIRIN 81 MG TABLET, CHEWABLE PO SCH (10:02)
[2020-07-28] MEDS: DOCUSATE SODIUM 100 MG CAPSULE PO SCH (10:03)
--- NOTE | 2020-07-28 19:26 | XCELERA REPORT ---
[address] [address] Transthoracic Echocardiogram Report Name: ESE ROSE Age: 54 yrs Gender: Male : 1965 Patient Status: Inpatient Patient Location: [address] [place] [address] Study Date: 07/26/2020 10:15 AM Height: 76 in Weight: 320 lb BSA: 2.7 m2 Procedure: A two-dimensional transthoracic echocardiogram with color flow and Doppler was performed. Study Quality: Fair. Images were not obtained from all of the standard acoustic windows due to the limited scope of the study. Reason For Study: cva History: CVA. Ordering Physician: IDANIA SEGOVIA Performed By: Robbin Hubbard Interpretation Summary There is no obvious cardiac source of embolus noted on this transthoracic echocardiogram. Follow-up with a TOI is suggested if cardiac source is still suspected. There is mild concentric left ventricular hypertrophy. Left ventricular systolic function is normal. LV EF is Greater than 60% Doppler measurements suggest normal left ventricular diastolic function The left ventricular wall motion is normal. There is no thrombus. Cannot assess ASD ,VSD , or PFO. The right ventricle is normal in size and function. The right atrium is normal. The left atrium is borderline dilated. There is no evidence of mitral valve prolapse. There is no vegetation seen on the mitral valve. There is no mitral valve stenosis. There is a trace amount of mitral regurgitation There is no aortic valvular vegetation. There is no aortic valve stenosis No aortic regurgitation is present. There is no tricuspid stenosis. There is a trace amount of tricuspid regurgitation Tricuspid regurgitation jet envelope not well defined to measure RV systolic pressure accurately. There is no pulmonic valvular stenosis. There is a trace amount of pulmonic regurgitation The aortic root is normal size. The inferior vena cava appeared normal and decreased < 50% with respiration (RAP 10-15 mmHg) There is no pericardial effusion. There is no obvious cardiac source of embolus noted on this transthoracic echocardiogram. Follow-up with a TOI is suggested if cardiac source is still suspected MMode/2D Measurements & Calculations RVDd: 2.8 cm LVIDd: 6.2 cm FS: 32.7 % Ao root diam: 3.5 cm IVSd: 1.3 cm LVIDs: 4.2 cm EDV(Teich): 194.7 ml Ao root area: 9.5 cm2 LVPWd: 1.2 cm ESV(Teich): 77.6 ml LA dimension: 4.2 cm EF(Teich): 60.2 % Doppler Measurements & Calculations MV E max janessa: MV P1/2t max janessa: Ao V2 max: LV V1 max P.5 cm/sec 62.7 cm/sec 119.4 cm/sec 2.8 mmHg MV A max janessa: MV P1/2t: 97.6 msec Ao max PG: LV V1 max: 43.2 cm/sec MVA(P1/2t): 2.3 cm2 5.7 mmHg 83.9 cm/sec MV E/A: 1.3 MV dec slope: 188.2 cm/sec2 MV dec time: 0.28 sec PA V2 max: MV P1/2t-pr_phl: 108.1 cm/sec 97.6 msec PA max P.7 mmHg Left Ventricle The left ventricle is normal in size. There is mild concentric left ventricular hypertrophy. Left ventricular systolic function is normal. LV EF is Greater than 60%. Doppler measurements suggest normal left ventricular diastolic function. The left ventricular wall motion is normal. There is no thrombus. Cannot assess ASD ,VSD , or PFO. Right Ventricle The right ventricle is normal in size and function. Atria The right atrium is normal. The left atrium is borderline dilated. Mitral Valve There is no evidence of mitral valve prolapse. There is no vegetation seen on the mitral valve. There is no mitral valve stenosis. There is a trace amount of mitral regurgitation. Aortic Valve There is no aortic valvular vegetation. There is no aortic valve stenosis. No aortic regurgitation is present. Tricuspid Valve There is no tricuspid stenosis. There is a trace amount of tricuspid regurgitation. Tricuspid regurgitation jet envelope not well defined to measure RV systolic pressure accurately. Pulmonic Valve There is no pulmonic valvular stenosis. There is a trace amount of pulmonic regurgitation. Great Vessels The aortic root is normal size. The inferior vena cava appeared normal and decreased < 50% with respiration (RAP 10-15 mmHg). Effusions There is no pericardial effusion. : IDANIA SEGOVIA Lakshmi
[2020-07-28] MEDS ORDERED: INSULIN GLARGINE,HUM.REC.ANLOG 1,000 UNIT/10 ML VIAL (PYX) SUBCUT ONE (21:29)
[2020-07-28] MEDS: ATORVASTATIN CALCIUM 40 MG TABLET PO SCH (21:31)
[2020-07-29] MEDS: INSULIN LISPRO 100 UNIT/ML 3 ML VIAL SUBCUT SCH ×4 (08:16→21:31)
[2020-07-29] MEDS: HYDROCHLOROTHIAZIDE 25 MG TABLET PO SCH (08:16)
[2020-07-29] MEDS: ENOXAPARIN SODIUM INJ 40 MG/0.4 ML DISP.SYRIN SUBCUT SCH (09:13)
[2020-07-29] MEDS: INSULIN GLARGINE,HUM.REC.ANLOG 1,000 UNIT/10 ML VIAL SUBCUT SCH ×2 (09:13→21:30)
[2020-07-29] MEDS: ASPIRIN 81 MG TABLET, CHEWABLE PO SCH (09:13)
[2020-07-29] MEDS: DOCUSATE SODIUM 100 MG CAPSULE PO SCH (09:13)
[2020-07-29] MEDS: LISINOPRIL 10 MG TABLET PO SCH (09:13)
[2020-07-29] MEDS: METOPROLOL TARTRATE 25 MG TABLET PO SCH (09:13)
--- NOTE | 2020-07-29 15:05 | PDOC PROGRESS REPORT ---
Subjective Date:: 07/29/20 Subjective:: The patient is a 54-year-old -[place] male who presented to the hospital with weakness and speech issues. He was found to have evidence of an acute CVA, possibly embolic in origin. His work-up has been unremarkable other than the MRI positive for an acute CVA. Initially the plan was for the patient to go home with home health services. When I went to see the patient today his sister is at the bedside. The patient lives by himself with several dogs to take care of. He is doing fairly well with physical therapy but clearly having some difficulty swallowing and he is frequently coughing at the bedside. The patient's sister is quite concerned about his ability to take care of himself and after a long discussion with the patient and the sister the patient has reluctantly agreed to pursue subacute rehabilitation at discharge. I believe this is quite appropriate. Today the patient states he feels like he is getting a cold. He has developed a cough. He is coughing frequently when I am in the room. He denies fever or shaking chills. He has had no chest pain or heart palpitations. He states he is having difficulty swallowing and gets choked sometimes when he is eating. He has had no nausea vomiting or diarrhea. No urinary complaints. He complains of right sided upper extremity weakness Reason For Visit: MULTIPLE ACUTE EMBOLIC STROKES, HYPERTENSION Physical Exam Vital Signs: Temp Pulse Resp BP Pulse Ox 97.8 F 66 16 145/79 H 99 07/29/20 11:14 07/29/20 14:00 07/29/20 12:00 07/29/20 12:00 07/29/20 12:00 Intake & Output 07/28/20 07/29/20 07/30/20 06:59 06:59 06:59 Intake Total 1569 460 Output Total 20 335 Balance 1549 125 Weight 160.2 kg 163.9 kg 163.9 kg General appearance: PRESENT: no acute distress, morbidly obese, well-developed, well-nourished Head exam: PRESENT: atraumatic, normocephalic Mouth exam: PRESENT: moist Respiratory exam: PRESENT: rhonchi, other - The patient is frequently coughing Cardiovascular exam: PRESENT: RRR, +S1, +S2 GI/Abdominal exam: PRESENT: soft, other - Morbidly obese. ABSENT: guarding, rebound, rigid Rectal exam: PRESENT: deferred Extremities exam: ABSENT: calf tenderness, pedal edema Neurological exam: PRESENT: alert, awake, oriented to person, oriented to place, oriented to time, oriented to situation, other - The patient has residual right hemiparesis worse in the upper extremity. He clearly has some difficulty with expressive aphasia. Psychiatric exam: ABSENT: agitated, anxious Skin exam: PRESENT: dry, warm Results Laboratory Results: 07/28/20 05:40 07/28/20 05:40 07/25/20 07/25/20 15:25 15:25 Creatine Kinase 386 H CK-MB (CK-2) 3.27 Troponin I 0.022 Impressions: Chest X-Ray 07/25/20 00:00 IMPRESSION: Negative chest allowing for low lung volumes. Head CT 07/25/20 00:00 IMPRESSION: Moderate chronic changes of atrophy and microvascular disease. No acute intracranial event. EVIDENCE OF ACUTE STROKE: NO. Head MRI 07/25/20 15:47 IMPRESSION: There are multiple small areas of abnormal diffusion in the left cerebral hemispheric suggesting acute embolic strokes. EVIDENCE OF ACUTE STROKE: Yes LEFT MCA Carotid Doppler Study 07/26/20 00:00 IMPRESSION: 1. Non-diagnostic duplex Doppler ultrasound examination. The bilateral internal carotid arteries are incompletely visualized sonographically. The patient was not very cooperative and examination is also limited due to patient's body habitus. Further evaluation with CTA-Neck with IV contrast may be helpful. Modified Barium Swallow 07/26/20 00:00 IMPRESSION: DEEP LARYNGEAL PENETRATION, WITHOUT ASPIRATION, SEEN WITH THIN AND NECTAR THICK CONSISTENCIES. PLEASE SEE SPEECH PATHOLOGIST REPORT FOR OTHER FINDINGS AND RECOMMENDATIONS. Assessment and Plan - Diagnosis (1) CVA (cerebral vascular accident) Qualifiers: CVA mechanism: embolism Qualified Code(s): I63.9 - Cerebral infarction, unspecified Is this a current diagnosis for this admission?: Yes Plan: The patient had evidence of a possible embolic CVA however no source has been no lalitha. At this point he will continue on aspirin and statin medication. The patient was on an 81 mg aspirin on admission as well as 80 mg of atorvastatin. He currently is still receiving an 81 mg aspirin as well as only 40 mg of atorvastatin. Due to his acute CVA I am going to increase his aspirin to 325 mg daily and I am going to place him back on his 80 mg of atorvastatin for now. Since we have not found a source and he has had no evidence of atrial fibrillation I do not believe he needs full dose anticoagulation for now. Continue prophylactic Lovenox (2) Dysphagia Is this a current diagnosis for this admission?: Yes Plan: The patient had a barium swallow which revealed significant penetration but no mily aspiration. A mechanical soft diet was recommended. The patient is frequently coughing in the room. He is trying to eat a piece of deer meat and is having quite a bit of difficulties swallowing that. I believe he is at high risk for aspiration. (3) Cough Is this a current diagnosis for this admission?: Yes Plan: I am concerned the patient possibly is aspirated. I am going to obtain a chest x-ray today. (4) Morbid obesity with BMI of 45.0-49.9, adult Is this a current diagnosis for this admission?: Yes Plan: Certainly he would benefit from weight loss. Continue modified diet for now. (5) CAD (coronary artery disease) Is this a current diagnosis for this admission?: Yes Plan: Continue aspirin, statin medication, metoprolol and lisinopril. He has no complaints of chest pain (6) Hypertension Qualifiers: Hypertension type: unspecified Qualified Code(s): I10 - Essential (primary) hypertension Is this a current diagnosis for this admission?: Yes Plan: Adequately controlled at this point. (7) T2DM (type 2 diabetes mellitus) Is this a current diagnosis for this admission?: Yes Plan: Stable on current regimen. Continue sliding scale coverage as needed (8) Tobacco abuse Is this a current diagnosis for this admission?: Yes Plan: Certainly would be in his best interest to quit smoking (9) Ambulatory dysfunction Is this a current diagnosis for this admission?: Yes Plan: After a long discussion with the patient and his sister at the bedside he is dec ided to pursue subacute rehabilitation at discharge. I have consulted the discharge planners (10) Full code status Is this a current diagnosis for this admission?: Yes - Plan Summary Summary: Overall the patient has had an acute CVA. He lives alone in a trailer with multiple dogs to care for. He has ambulatory dysfunction, clearly some difficulty swallowing and speech difficulties. The patient's sister as well as the patient agrees that he would benefit from subacute rehabilitation and I have consulted the discharge planners. Also the patient has developed a cough. He needs a chest x-ray today. He may be developing an aspiration pneumonia. I suspect he will be in the hospital at least over the weekend - Time Time Spent with patient: 35 or more minutes Anticipated Discharge Disposition: Senior Living Facility Anticipated Discharge Timeframe: when bed available
--- NOTE | 2020-07-29 16:41 | RADIOLOGY REPORT (SQ) ---
EXAM DESCRIPTION: CHEST 2 VIEWS IMAGES COMPLETED DATE/TIME: 07/29/2020 4:31 pm REASON FOR STUDY: suspect aspiration, new cough in setting of cva COMPARISON: AP view of the chest from 07/25/2020. EXAM PARAMETERS: NUMBER OF VIEWS: Two views. TECHNIQUE: PA and lateral views of the chest were obtained. RADIATION DOSE: NA LIMITATIONS: None. FINDINGS: LUNGS AND PLEURA: No consolidation, pleural effusion or pneumothorax. MEDIASTINUM AND HILAR STRUCTURES: No mediastinal or hilar contour abnormality. HEART AND VASCULAR STRUCTURES: The cardiac silhouette and pulmonary vasculature are within normal sands its. BONES: No acute findings. HARDWARE: None in the chest. OTHER: No other finding. IMPRESSION: No acute cardiopulmonary process. TECHNICAL DOCUMENTATION: JOB ID: [id number] 2010 [employer]- All Rights Reserved Reading location - IP/workstation name: [email or web address]
[2020-07-29] MEDS: ATORVASTATIN CALCIUM 80 MG TABLET PO SCH (21:30)
[2020-07-30] MEDS ORDERED: LORAZEPAM 1 MG TABLET ONE (00:05)
[2020-07-30] MEDS ORDERED: LORAZEPAM 1 MG TABLET PO ONE (00:30)
[2020-07-30] MEDS ORDERED: DIPHENHYDRAMINE HCL 25 MG CAPSULE ONE (01:16)
[2020-07-30] MEDS ORDERED: DIPHENHYDRAMINE HCL 25 MG CAPSULE PO ONE (01:30)
[2020-07-30 08:06] LABS: ABSOLUTE BASOPHILS # (AUTO) 0.1 10^3/uL (0.0-0.2); ABSOLUTE EOSINOPHILS # (AUTO) 0.2 10^3/uL (0.0-0.6); ABSOLUTE LYMPHOCYTES (AUTO) 3.3 10^3/uL (0.5-4.7); ABSOLUTE MONOCYTES (AUTO) 0.7 10^3/uL (0.1-1.4); ABSOLUTE NEUT (AUTO) 3.4 10^3/uL (1.7-8.2); BASOPHILS % (AUTO) 0.8 % (0-2); EOSINOPHILS % (AUTO) 3.2 % (0-6); HEMATOCRIT 40.4 % (37.9-51.0); HEMOGLOBIN 13.2 g/dL (13.5-17.0); LYMPHOCYTES % (AUTO) 43.4 % (13-45); MEAN CORPUSCULAR HEMOGLOBIN 23.4 pg (27.0-33.4); MEAN CORPUSCULAR HGB CONC 32.6 g/dL (32.0-36.0); MEAN CORPUSCULAR VOLUME 72 fl (80-97); MONOCYTES % (AUTO) 8.5 % (3-13); PLATELET COUNT 241 10^3/uL (150-450); RED BLOOD COUNT 5.64 10^6/uL (4.35-5.55); RED CELL DISTRIBUTION WIDTH 15.5 % (11.5-14.0); SEGMENTED NEUTROPHILS % (AUTO) 44.1 % (42-78); TOTAL CELLS COUNTED % (AUTO) 100 %; WHITE BLOOD COUNT 7.7 10^3/uL (4.0-10.5)
[2020-07-30 08:27] LABS: ANION GAP 9 (5-19); BLOOD UREA NITROGEN 15 mg/dL (7-20); CARBON DIOXIDE 31 mmol/L (22-30); CHLORIDE 97 mmol/L (98-107); GLUCOSE 181 mg/dL (75-110); PHOSPHORUS 4.2 mg/dL (2.5-4.5)
[2020-07-30] MEDS: ASPIRIN 81 MG TABLET, CHEWABLE PO SCH (09:07)
[2020-07-30] MEDS: METOPROLOL TARTRATE 25 MG TABLET PO SCH ×2 (09:08→18:29)
[2020-07-30] MEDS: LISINOPRIL 10 MG TABLET PO SCH (09:08)
[2020-07-30] MEDS: HYDROCHLOROTHIAZIDE 25 MG TABLET PO SCH (09:08)
[2020-07-30] MEDS: DOCUSATE SODIUM 100 MG CAPSULE PO SCH (09:08)
[2020-07-30] MEDS: ENOXAPARIN SODIUM INJ 40 MG/0.4 ML DISP.SYRIN SUBCUT SCH (09:09)
[2020-07-30] MEDS: INSULIN LISPRO 100 UNIT/ML 3 ML VIAL SUBCUT SCH ×4 (09:11→21:55)
[2020-07-30] MEDS: INSULIN GLARGINE,HUM.REC.ANLOG 1,000 UNIT/10 ML VIAL SUBCUT SCH ×2 (09:12→21:55)
--- NOTE | 2020-07-30 14:29 | PDOC PROGRESS REPORT ---
Subjective Date:: 07/30/20 Subjective:: NAEO Reason For Visit: MULTIPLE ACUTE EMBOLIC STROKES, HYPERTENSION Physical Exam Vital Signs: Temp Pulse Resp BP Pulse Ox 97.5 F 69 18 135/77 H 98 07/30/20 11:02 07/30/20 14:00 07/30/20 12:00 07/30/20 12:00 07/30/20 12:00 Intake & Output 07/29/20 07/30/20 07/31/20 06:59 06:59 06:59 Intake Total 460 860 240 Output Total 335 350 200 Balance 125 510 40 Weight 163.9 kg 160.6 kg General appearance: PRESENT: no acute distress, cooperative Head exam: PRESENT: atraumatic Eye exam: ABSENT: scleral icterus Mouth exam: PRESENT: moist Neck exam: ABSENT: JVD Respiratory exam: PRESENT: clear to auscultation ade Cardiovascular exam: PRESENT: RRR GI/Abdominal exam: PRESENT: normal bowel sounds, soft. ABSENT: tenderness Extremities exam: ABSENT: pedal edema Neurological exam: PRESENT: alert, awake Psychiatric exam: PRESENT: flat affect Focused psych exam: ABSENT: restlessness Skin exam: ABSENT: jaundice Results Laboratory Results: 07/30/20 07:20 07/30/20 07:20 07/30/20 07/30/20 07:20 07:20 WBC 7.7 RBC 5.64 H Hgb 13.2 L Hct 40.4 MCV 72 L MCH 23.4 L MCHC 32.6 RDW 15.5 H Plt Count 241 Seg Neutrophils % 44.1 Sodium 137.4 Potassium 4.0 Chloride 97 L Carbon Dioxide 31 H Anion Gap 9 BUN 15 Creatinine 1.00 Est GFR ( Amer) > 60 Glucose 181 H Calcium 10.0 Phosphorus 4.2 Magnesium 1.8 Albumin 4.0 07/25/20 07/25/20 15:25 15:25 Creatine Kinase 386 H CK-MB (CK-2) 3.27 Troponin I 0.022 Impressions: Head CT 07/25/20 00:00 IMPRESSION: Moderate chronic changes of atrophy and microvascular disease. No acute intracranial event. EVIDENCE OF ACUTE STROKE: NO. Head MRI 07/25/20 15:47 IMPRESSION: There are multiple small areas of abnormal diffusion in the left cerebral hemispheric suggesting acute embolic strokes. EVIDENCE OF ACUTE STROKE: Yes LEFT MCA Carotid Doppler Study 07/26/20 00:00 IMPRESSION: 1. Non-diagnostic duplex Doppler ultrasound examination. The bilateral internal carotid arteries are incompletely visualized sonographically. The patient was not very cooperative and examination is also limited due to patient's body habitus. Further evaluation with CTA-Neck with IV contrast may be helpful. Modified Barium Swallow 07/26/20 00:00 IMPRESSION: DEEP LARYNGEAL PENETRATION, WITHOUT ASPIRATION, SEEN WITH THIN AND NECTAR THICK CONSISTENCIES. PLEASE SEE SPEECH PATHOLOGIST REPORT FOR OTHER FI NDINGS AND RECOMMENDATIONS. Chest X-Ray 07/29/20 15:01 IMPRESSION: No acute cardiopulmonary process. Assessment and Plan - Diagnosis (1) Ambulatory dysfunction Is this a current diagnosis for this admission?: Yes (2) CAD (coronary artery disease) Is this a current diagnosis for this admission?: Yes (3) CVA (cerebral vascular accident) Qualifiers: CVA mechanism: embolism Qualified Code(s): I63.9 - Cerebral infarction, unspecified Is this a current diagnosis for this admission?: Yes (4) History of [place] (myocardial infarction) Is this a current diagnosis for this admission?: Yes (5) Hypertension Qualifiers: Hypertension type: unspecified Qualified Code(s): I10 - Essential (primary) hypertension Is this a current diagnosis for this admission?: Yes (6) Morbid obesity with BMI of 45.0-49.9, adult Is this a current diagnosis for this admission?: Yes (7) T2DM (type 2 diabetes mellitus) Is this a current diagnosis for this admission?: Yes (8) Tobacco abuse Is this a current diagnosis for this admission?: Yes - Plan Summary Summary: Acute Embolic CVA: unknown source - continue ASA and high intensity statin - so far, no evidence of arrhythmia on telemetry - outpatient cardiology follow up for Holter monitor and TTE with bubble study - TTE performed here in the hospital (without bubble study): unremarkable - fall precautions - PT/OT Dysphagia: due to CVA, s/p MBS on 07/26 showing deep laryngeal penetration - TECHNICIAN BIOLOGICAL HEALTH consult - continue mechanical soft diet with cut meats, regular fluids - aspiration precautions (Fully Upright During Meal, Meds Crushed in Applesauce, Small Bites and Sips) CAD - continue aspirin, statin medication, metoprolol and lisinopril Essential Hypertension - well controlled on current regimen DM2 c/b hyperglycemia: HbA1c 9.4% - increase Lantus to 20 units BID - SSI TID ACHS Tobacco abuse - smoking cessation counseling provided - nicotine patch Morbid obesity with BMI of 45.0-49.9, adult - recommend diet, exercise and weight loss DVT ppx: Lovenox Dispo: awaiting SNF placement for ongoing PT/OT/TECHNICIAN BIOLOGICAL HE[employer], will need COVID testing prior to placement - Time Time Spent with patient: 35 or more minutes Anticipated Discharge Disposition: Senior Living Facility Anticipated Discharge Timeframe: within 24 hours
[2020-07-30] MEDS: GUAIFENESIN/D-METHORPHAN (200-20 MG) SYRUP 10 ML PO PRN (17:33)
[2020-07-30] MEDS: ATORVASTATIN CALCIUM 80 MG TABLET PO SCH (21:56)
[2020-07-31] MEDS ORDERED: HYDROCHLOROTHIAZIDE 25 MG TABLET PO SCH (08:00)
[2020-07-31] MEDS: INSULIN LISPRO 100 UNIT/ML 3 ML VIAL SUBCUT SCH ×4 (08:41→21:21)
[2020-07-31] MEDS: HYDROCHLOROTHIAZIDE 12.5 MG TABLET PO SCH (08:43)
[2020-07-31] MEDS: GUAIFENESIN/D-METHORPHAN (200-20 MG) SYRUP 10 ML PO PRN ×2 (08:45→19:47)
[2020-07-31] MEDS: ENOXAPARIN SODIUM INJ 40 MG/0.4 ML DISP.SYRIN SUBCUT SCH (09:00)
[2020-07-31] MEDS: METOPROLOL TARTRATE 25 MG TABLET PO SCH ×2 (09:01→17:20)
[2020-07-31] MEDS: ASPIRIN 81 MG TABLET, CHEWABLE PO SCH (09:01)
[2020-07-31] MEDS: LISINOPRIL 10 MG TABLET PO SCH (09:02)
[2020-07-31] MEDS: INSULIN GLARGINE,HUM.REC.ANLOG 1,000 UNIT/10 ML VIAL SUBCUT SCH ×2 (09:03→21:20)
--- NOTE | 2020-07-31 13:45 | PDOC PROGRESS REPORT ---
Subjective Date:: 07/31/20 Subjective:: NAEO. He feels well today. Reason For Visit: MULTIPLE ACUTE EMBOLIC STROKES, HYPERTENSION Physical Exam Vital Signs: Temp Pulse Resp BP Pulse Ox 97.3 F 67 20 129/68 H 94 07/31/20 10:00 07/31/20 11:21 07/31/20 11:21 07/31/20 11:21 07/31/20 11:21 Intake & Output 07/30/20 07/31/20 08/01/20 06:59 06:59 06:59 Intake Total 860 740 120 Output Total 350 725 Balance 510 15 120 Weight 160.6 kg 160.4 kg General appearance: PRESENT: no acute distress, cooperative Eye exam: ABSENT: scleral icterus Mouth exam: PRESENT: moist Throat exam: ABSENT: post pharyngeal erythema Neck exam: ABSENT: JVD Respiratory exam: PRESENT: clear to auscultation ade, unlabored Cardiovascular exam: PRESENT: RRR GI/Abdominal exam: PRESENT: normal bowel sounds, soft. ABSENT: tenderness Extremities exam: ABSENT: pedal edema Musculoskeletal exam: PRESENT: ambulatory Neurological exam: PRESENT: alert, awake, oriented to person, oriented to place, oriented to time Psychiatric exam: PRESENT: flat affect Skin exam: ABSENT: rash Results Laboratory Results: 07/30/20 07:20 07/30/20 07:20 07/25/20 07/25/20 15:25 15:25 Creatine Kinase 386 H CK-MB (CK-2) 3.27 Troponin I 0.022 Impressions: Head CT 07/25/20 00:00 IMPRESSION: Moderate chronic changes of atrophy and microvascular disease. No acute intracranial event. EVIDENCE OF ACUTE STROKE: NO. Head MRI 07/25/20 15:47 IMPRESSION: There are multiple small areas of abnormal diffusion in the left cerebral hemispheric suggesting acute embolic strokes. EVIDENCE OF ACUTE STROKE: Yes LEFT MCA Carotid Doppler Study 07/26/20 00:00 IMPRESSION: 1. Non-diagnostic duplex Doppler ultrasound examination. The bilateral internal carotid arteries are incompletely visualized sonographically. The patient was not very cooperative and examination is also limited due to patient's body habitus. Further evaluation with CTA-Neck with IV contrast may be helpful. Modified Barium Swallow 07/26/20 00:00 IMPRESSION: DEEP LARYNGEAL PENETRATION, WITHOUT ASPIRATION, SEEN WITH THIN AND NECTAR THICK CONSISTENCIES. PLEASE SEE SPEECH PATHOLOGIST REPORT FOR OTHER FINDINGS AND RECOMMENDATIONS. Chest X-Ray 07/29/20 15:01 IMPRESSION: No acute cardiopulmonary process. Assessment and Plan - Diagnosis (1) Ambulatory dysfunction Is this a current diagnosis for this admission?: Yes (2) CAD (coronary artery disease) Is this a current diagnosis for this admission?: Yes (3) CVA (cerebral vascular accident) Qualifiers: CVA mechanism: embolism Qualified Code(s): I63.9 - Cerebral infarction, unspecified Is this a current diagnosis for this admission?: Yes (4) History of [place] (myocardial infarction) Is this a current diagnosis for this admission?: Yes (5) Hypertension Qualifiers: Hypertension type: unspecified Qualified Code(s): I10 - Essential (primary) hypertension Is this a current diagnosis for this admission?: Yes (6) Morbid obesity with BMI of 45.0-49.9, adult Is this a current diagnosis for this admission?: Yes (7) T2DM (type 2 diabetes mellitus) Is this a current diagnosis for this admission?: Yes (8) Tobacco abuse Is this a current diagnosis for this admission?: Yes - Plan Summary Summary: Acute Embolic CVA: unknown source - continue ASA and high intensity statin - no evidence of arrhythmia on telemetry thus far - TTE performed here in the hospital (without bubble study): unremarkable - outpatient cardiology follow up for Holter monitor and TTE with bubble study - fall precautions - PT/OT/RAFTER CUTTING MACHINE OPERATOR daily Dysphagia: due to CVA, s/p MBS on 07/26 showing deep laryngeal penetration - RAFTER CUTTING MACHINE OPERATOR consulted - continue mechanical soft diet with cut meats, regular fluids - aspiration precautions (Fully Upright During Meal, Meds Crushed in Applesauce, Small Bites and Sips) CAD - continue aspirin, statin medication, metoprolol and lisinopril Essential Hypertension - well controlled on current regimen DM2 c/b hyperglycemia: HbA1c 9.4% - increase Lantus to 20 units BID - SSI TID ACHS Tobacco abuse - smoking cessation counseling provided - nicotine patch Morbid obesity with BMI of 45.0-49.9, adult - recommend diet, exercise and weight loss DVT ppx: Lovenox Dispo: patient is tolerating longer therapy sessions. Given that he was completely independent prior to this stroke, and he is quite young and strong, he would be an excellent candidate for acute rehab. Discharge planning order placed. COVID screen pending. - Time Time Spent with patient: 35 or more minutes Anticipated [facility]charge Disposition: [facility] Anticipated Discharge Timeframe: within 24 hours
[2020-07-31] MEDS: ATORVASTATIN CALCIUM 80 MG TABLET PO SCH (21:20)
[2020-08-01] MEDS: GUAIFENESIN/D-METHORPHAN (200-20 MG) SYRUP 10 ML PO PRN (07:58)
[2020-08-01] MEDS: INSULIN LISPRO 100 UNIT/ML 3 ML VIAL SUBCUT SCH ×4 (07:58→21:20)
[2020-08-01] MEDS: HYDROCHLOROTHIAZIDE 12.5 MG TABLET PO SCH (07:58)
[2020-08-01] MEDS: LISINOPRIL 10 MG TABLET PO SCH (10:16)
[2020-08-01] MEDS: ASPIRIN 81 MG TABLET, CHEWABLE PO SCH (10:16)
[2020-08-01] MEDS: METOPROLOL SUCCINATE 25 MG TAB.SR.24H PO SCH (10:16)
[2020-08-01] MEDS: ENOXAPARIN SODIUM INJ 40 MG/0.4 ML DISP.SYRIN SUBCUT SCH (10:17)
[2020-08-01] MEDS: INSULIN GLARGINE,HUM.REC.ANLOG 1,000 UNIT/10 ML VIAL SUBCUT SCH ×2 (10:17→21:20)
--- NOTE | 2020-08-01 16:15 | PDOC PROGRESS REPORT ---
Subjective Date:: 08/01/20 Subjective:: NAEO. Doing well today. Reason For Visit: MULTIPLE ACUTE EMBOLIC STROKES, HYPERTENSION Physical Exam Vital Signs: Temp Pulse Resp BP Pulse Ox 97.9 F 80 18 138/71 H 96 08/01/20 11:40 08/01/20 14:00 08/01/20 11:40 08/01/20 11:40 08/01/20 11:40 Intake & Output 07/31/20 08/01/20 08/02/20 06:59 06:59 06:59 Intake Total 740 120 260 Output Total 725 200 125 Balance 15 -80 135 Weight 160.4 kg 160.2 kg General appearance: PRESENT: no acute distress, cooperative Head exam: PRESENT: atraumatic Eye exam: ABSENT: scleral icterus Mouth exam: PRESENT: moist Throat exam: ABSENT: post pharyngeal erythema Neck exam: ABSENT: JVD Respiratory exam: PRESENT: clear to auscultation ade, unlabored Cardiovascular exam: PRESENT: RRR GI/Abdominal exam: PRESENT: normal bowel sounds, soft. ABSENT: tenderness Gentrourinary exam: ABSENT: indwelling catheter Extremities exam: ABSENT: pedal edema Musculoskeletal exam: PRESENT: ambulatory Neurological exam: PRESENT: alert, awake Psychiatric exam: PRESENT: flat affect Skin exam: ABSENT: rash Results Laboratory Results: 07/30/20 07:20 07/30/20 07:20 07/25/20 07/25/20 15:25 15:25 Creatine Kinase 386 H CK-MB (CK-2) 3.27 Troponin I 0.022 Impressions: Head CT 07/25/20 00:00 IMPRESSION: Moderate chronic changes of atrophy and microvascular disease. No acute intracranial event. EVIDENCE OF ACUTE STROKE: NO. Head MRI 07/25/20 15:47 IMPRESSION: There are multiple small areas of abnormal diffusion in the left cerebral hemispheric suggesting acute embolic strokes. EVIDENCE OF ACUTE STROKE: Yes LEFT MCA Carotid Doppler Study 07/26/20 00:00 IMPRESSION: 1. Non-diagnostic duplex Doppler ultrasound examination. The bilateral internal carotid arteries are incompletely visualized sonographically. The patient was not very cooperative and examination is also limited due to patient's body habitus. Further evaluation with CTA-Neck with IV contrast may be helpful. Modified Barium Swallow 07/26/20 00:00 IMPRESSION: DEEP LARYNGEAL PENETRATION, WITHOUT ASPIRATION, SEEN WITH THIN AND NECTAR THICK CONSISTENCIES. PLEASE SEE SPEECH PATHOLOGIST REPORT FOR OTHER FINDINGS AND RECOMMENDATIONS. Chest X-Ray 07/29/20 15:01 IMPRESSION: No acute cardiopulmonary process. Assessment and Plan - Diagnosis (1) Ambulatory dysfunction Is this a current diagnosis for this admission?: Yes (2) CAD (coronary artery disease) Is this a current diagnosis for this admission?: Yes (3) CVA (cerebral vascular accident) Qualifiers: CVA mechanism: embolism Qualified Code(s): I63.9 - Cerebral infarction, unspecified Is this a current diagnosis for this admission?: Yes (4) History of [place] (myocardial infarction) Is this a current diagnosis for this admission?: Yes (5) Hypertension Qualifiers: Hypertension type: unspecified Qualified Code(s): I10 - Essential (primary) hypertension Is this a current diagnosis for this admission?: Yes (6) Morbid obesity with BMI of 45.0-49.9, adult Is this a current diagnosis for this admission?: Yes (7) T2DM (type 2 diabetes mellitus) Is this a current diagnosis for this admission?: Yes (8) Tobacco abuse Is this a current diagnosis for this admission?: Yes - Plan Summary Summary: Acute Embolic CVA: unknown source - continue ASA and high intensity statin - no evidence of arrhythmia on telemetry thus far - TTE performed here in the hospital (without bubble study): unremarkable - outpatient cardiology follow up for Holter monitor and TTE with bubble study - fall precautions - PT/OT/MOTORIZED SQUAD SERGEANT daily Dysphagia: due to CVA, s/p MBS on 07/26 showing deep laryngeal penetration - MOTORIZED SQUAD SERGEANT consulted - continue mechanical soft diet with cut meats, regular fluids - aspiration precautions (Fully Upright During Meal, Meds Crushed in Applesauce, Small Bites and Sips) CAD - continue aspirin, statin medication, metoprolol and lisinopril Essential Hypertension - well controlled on current regimen DM2 c/b hyperglycemia: HbA1c 9.4% - continue Lantus to 20 units BID - SSI TID ACHS Tobacco abuse - smoking cessation counseling provided - nicotine patch Morbid obesity with BMI of 45 - recommend diet, exercise and weight loss DVT ppx: Lovenox Dispo: patient is tolerating longer therapy sessions. Given that he was completely independent prior to this stroke, and he is quite young and strong, he would be an excellent candidate for acute rehab. Discharge planning order placed. COVID screen negative. - Time Time Spent with patient: 35 or more minutes Anticipated Discharge Disposition: Retirement Facility Anticipated Discharge Timeframe: within 24 hours
[2020-08-01] MEDS: ATORVASTATIN CALCIUM 80 MG TABLET PO SCH (21:24)
--- NOTE | 2020-08-02 08:07 | PDOC DISCHARGE SUMMARY ---
Impression - Admit/DC Date/PCP Admission Date/Primary Care Provider: 07/25/20 18:33 CLAUDIA THRASHER, ELLIE-Polina Discharge Date: 08/02/20 - Discharge Diagnosis (1) Ambulatory dysfunction Is this a current diagnosis for this admission?: Yes (2) CAD (coronary artery disease) Is this a current diagnosis for this admission?: Yes (3) CVA (cerebral vascular accident) Is this a current diagnosis for this admission?: Yes (4) History of NM (myocardial infarction) Is this a current diagnosis for this admission?: Yes (5) Hypertension Is this a current diagnosis for this admission?: Yes (6) Morbid obesity with BMI of 45.0-49.9, adult Is this a current diagnosis for this admission?: Yes (7) T2DM (type 2 diabetes mellitus) Is this a current diagnosis for this admission?: Yes (8) Tobacco abuse Is this a current diagnosis for this admission?: Yes - Assessment Summary: ESE ROSE is a morbidly obese 54 year old male with past medical history significant for previous CVA, HTN, HLD, insulin-dependent DM2, CAD c/b prior NM s/p PCI, tobacco abuse who presented on 07/25/2020 with a 5-day history of progressive right-sided upper extremity weakness, slurred speech, and confusion. He was brought in by his friends and family as patient was initially refusing to come to the hospital for the past few days since . On , patient reportedly started having symptoms and was encouraged to go to the ED by his family but he refused. Acute Embolic CVA: MRI of the brain showed multiple small acute CVA consistent with embolic source. He has no known prior history of atrial fibrillation. EKG showed normal sinus rhythm. He has been maintained on telemetry throughout his admission and has had no evidence of an arrhythmia. He was already on ASA/statin therapy prior to this admission, and he notes compliance with all of his home medications. TTE performed here in the hospital (without a bubble study) was unremarkable and has showed no evidence of an LV thrombus or other potential etiology for embolic source. Case was discussed with cardiology, who have recommended outpatient cardiology follow-up for Holter monitor and TTE with bubble study. If repeat TTE with bubble study is unremarkable, he may be a candidate for a TOI. He has been receiving PT/OT/[employer]BIT[employer] HEARING OFFICE daily and will be discharged to acute rehab facility for ongoing therapy. He was continued to daily ASA and high-intensity statin therapy. Given unknown source of embolic st rokes, he is not a candidate for Plavix or anticoagulation at this time. Dysphagia: due to CVA, s/p MBS on 07/26 showing deep laryngeal penetration. He is doing well on a mechanical soft diet with cut meats and regular fluids. Strict aspiration precautions encouraged (Fully Upright During Meals, Meds Crushed in Applesauce, Small Bites and Sips). CAD: continue aspirin, high intensity statin, metoprolol and lisinopril. Essential Hypertension: well controlled on current regimen. Uncontrolled DM2 c/b hyperglycemia: HbA1c 9.4% this admission. His home Lantus dose was increased from 10 to 20 units BID. He would benefit from the addition of metformin therapy as outpatient. Tobacco Abuse: smoking cessation counseling and nicotine patch provided. Morbid obesity with BMI of 44.5: recommend diet, exercise and weight loss. Dispo: patient is tolerating longer therapy sessions. Given that he was completely independent prior to this stroke, and he is quite young and strong, he is an excellent candidate for acute rehab. COVID screen negative. - Additional Information Resuscitation Status: Full Code Discharge Diet: Diabetic Discharge Activity: Activity As Tolerated, Walk Frequently Referrals: CLAUDIA THRASHER FNP-C [Primary Care Provider] - 08/03/20 8:15 am Prescriptions: Lisinopril 20 mg PO DAILY #30 tablet Home Medications: Aspirin [Ecotrin 81 mg EC Tablet] 81 mg PO DAILY #30 tabec 10/19/18 Atorvastatin Calcium [Lipitor 80 mg Tablet] 80 mg PO QHS 07/25/20 Insulin Aspart [Novolog Flexpen] 0 unit SUBCUT .SLD SCALE 07/25/20 Guaifenesin/D-Methorphan Hb [Robitussin-Dm Syrup 10 ml Udcup] 10 ml PO QIDP PRN syrup 08/02/20 Hydrochlorothiazide [Hydrodiuril 12.5 mg Tablet] 12.5 mg PO QAM tablet 08/02/20 Insulin Glargine,Hum.rec.anlog [Lantus Insulin 100 Unit/1 ml 10 ml] 20 unit SUBCUT Q12 unit 08/02/20 Lisinopril 20 mg PO DAILY #30 tablet 08/02/20 Metoprolol Succinate [Toprol Xl 25 mg Tab.sr] 25 mg PO DAILY tab.sr.24h 08/02/20 History of Present Illiness History of Present Illness: ESE ROSE is a 54 year old male Physical Exam Vital Signs: Temp Pulse Resp BP Pulse Ox 97.2 F 65 16 152/74 H 99 08/02/20 03:46 08/02/20 03:46 08/02/20 03:46 08/02/20 03:46 08/02/20 03:46 Intake & Output 08/01/20 08/02/20 08/03/20 06:59 06:59 06:59 Intake Total 120 559 Output Total 200 225 Balance -80 334 Weight 160.2 kg 157.2 kg Results Laboratory Results: WBC 7.7 10^3/uL (4.0-10.5) 07/30/20 07:20 RBC 5.64 10^6/uL (4.35-5.55) H 07/30/20 07:20 Hgb 13.2 g/dL (13.5-17.0) L 07/30/20 07:20 Hct 40.4 % (37.9-51.0) 07/30/20 07:20 MCV 72 fl (80-97) L 07/30/20 07:20 MCH 23.4 pg (27.0-33.4) L 07/30/20 07:20 MCHC 32.6 g/dL (32.0-36.0) 07/30/20 07:20 RDW 15.5 % (11.5-14.0) H 07/30/20 07:20 Plt Count 241 10^3/uL (150-450) 07/30/20 07:20 Lymph % (Auto) 43.4 % (13-45) 07/30/20 07:20 [place] % (Auto) 8.5 % (3-13) 07/30/20 07:20 Eos % (Auto) 3.2 % (0-6) 07/30/20 07:20 Baso % (Auto) 0.8 % (0-2) 07/30/20 07:20 Absolute Neuts (auto) 3.4 10^3/uL (1.7-8.2) 07/30/20 07:20 Absolute Lymphs (auto) 3.3 10^3/uL (0.5-4.7) 07/30/20 07:20 Absolute Monos (auto) 0.7 10^3/uL (0.1-1.4) 07/30/20 07:20 Absolute Eos (auto) 0.2 10^3/uL (0.0-0.6) 07/30/20 07:20 Absolute Basos (auto) 0.1 10^3/uL (0.0-0.2) 07/30/20 07:20 Seg Neutrophils % 44.1 % (42-78) 07/30/20 07:20 PT 12.1 SEC (11.4-15.4) 07/25/20 15:25 INR 0.87 07/25/20 15:25 APTT 26.4 SEC (23.5-35.8) 07/25/20 15:25 Sodium 137.4 mmol/L (137-145) 07/30/20 07:20 Potassium 4.0 mmol/L (3.6-5.0) 07/30/20 07:20 Chloride 97 mmol/L (98-107) L 07/30/20 07:20 Carbon Dioxide 31 mmol/L (22-30) H 07/30/20 07:20 Anion Gap 9 (5-19) 07/30/20 07:20 BUN 15 mg/dL (7-20) 07/30/20 07:20 Creatinine 1.00 mg/dL (0.52-1.25) 07/30/20 07:20 Est GFR ( Amer) > 60 (>60) 07/30/20 07:20 Est GFR (MDRD) Non-Af > 60 (>60) 07/30/20 07:20 Glucose 181 mg/dL (75-110) H 07/30/20 07:20 POC Glucose 144 mg/dL (70-110) H 08/02/20 07:14 Hemoglobin A1c % 9.4 % (4.7-6.0) H 07/25/20 15:25 Calcium 10.0 mg/dL (8.4-10.2) 07/30/20 07:20 Phosphorus 4.2 mg/dL (2.5-4.5) 07/30/20 07:20 Magnesium 1.8 mg/dL (1.6-2.3) 07/30/20 07:20 Total Bilirubin 0.7 mg/dL (0.2-1.3) 07/27/20 06:15 Direct Bilirubin 0.1 mg/dL (0.0-0.4) 07/27/20 06:15 Neonat Total Bilirubin Not Reportable 07/27/20 06:15 Neonat Direct Bilirubin Not Reportable 07/27/20 06:15 Neonat Indirect Bili Not Reportable 07/27/20 06:15 AST 29 U/L (17-59) 07/27/20 06:15 ALT 28 U/L (<50) 07/27/20 06:15 Alkaline Phosphatase 87 U/L (38-126) 07/27/20 06:15 Creatine Kinase 386 U/L (55-170) H 07/25/20 15:25 CK-MB (CK-2) 3.27 ng/mL (<4.55) 07/25/20 15:25 Troponin I 0.022 ng/mL 07/25/20 15:25 Total Protein 6.7 g/dL (6.3-8.2) 07/27/20 06:15 Albumin 4.0 g/dL (3.5-5.0) 07/30/20 07:20 Triglycerides 150 mg/dL (<150) 07/25/20 15:25 Cholesterol 208.11 mg/dL (0-200) H 07/25/20 15:25 LDL Cholesterol Direct 149 mg/dL (<100) H 07/25/20 15:25 VLDL Cholesterol 30.0 mg/dL (10-31) 07/25/20 15:25 HDL Cholesterol 47 mg/dL (>40) 07/25/20 15:25 TSH 0.98 uIU/mL (0.47-4.68) 07/26/20 06:27 COVID-19 Source See comment 07/30/20 19:52 COVID-19 (RODRICK) Not Detected (Not Detect) 07/30/20 19:52 07/25/20 15:25 CK-MB (CK-2) 3.27 Troponin I 0.022 Impressions: Chest X-Ray 07/25/20 00:00 IMPRESSION: Negative chest allowing for low lung volumes. Head CT 07/25/20 00:00 IMPRESSION: Moderate chronic changes of atrophy and microvascular disease. No acute intracranial event. EVIDENCE OF ACUTE STROKE: NO. Head MRI 07/25/20 15:47 IMPRESSION: There are multiple small areas of abnormal diffusion in the left cerebral hemispheric suggesting acute embolic strokes. EVIDENCE OF ACUTE STROKE: Yes LEFT MCA Carotid Doppler Study 07/26/20 00:00 IMPRESSION: 1. Non-diagnostic duplex Doppler ultrasound examination. The bilateral internal carotid arteries are incompletely visualized sonographically. The patient was not very cooperative and examination is also limited due to patient's body habitus. Further evaluation with CTA-Neck with IV contrast may be helpful. Modified Barium Swallow 07/26/20 00:00 IMPRESSION: DEEP LARYNGEAL PENETRATION, WITHOUT ASPIRATION, SEEN WITH THIN AND NECTAR THICK CONSISTENCIES. PLEASE SEE SPEECH PATHOLOGIST REPORT FOR OTHER FINDINGS AND RECOMMENDATIONS. Chest X-Ray 07/29/20 15:01 IMPRESSION: No acute cardiopulmonary process. Stroke Is this a Stroke Patient?: Yes Stroke Pt being discharged on Anti-thrombolytic therapy?: Yes Stroke Pt being discharged on Anti-coagulation therapy?: No Reason(s) for not prescribing Anti-coagulation therapy:: Not indicated Stroke Pt being discharged on Statins?: Yes Acute Heart Failure Is this a Heart Failure Patient?: No
[2020-08-02] MEDS ORDERED: LISINOPRIL 10 MG TABLET ONE (08:20)
[2020-08-02 08:25] VITALS: BP 136/62
[2020-08-02] MEDS: HYDROCHLOROTHIAZIDE 12.5 MG TABLET PO SCH (08:37)
[2020-08-02] MEDS: METOPROLOL SUCCINATE 25 MG TAB.SR.24H PO SCH (09:00)
[2020-08-02] MEDS: ASPIRIN 81 MG TABLET, CHEWABLE PO SCH (09:00)
[2020-08-02] MEDS: ENOXAPARIN SODIUM INJ 40 MG/0.4 ML DISP.SYRIN SUBCUT SCH (09:00)
[2020-08-02] MEDS: INSULIN LISPRO 100 UNIT/ML 3 ML VIAL SUBCUT SCH (09:01)
[2020-08-02] MEDS ORDERED: LISINOPRIL 10 MG TABLET PO SCH (10:00)
== END 2020-08-02 09:50 | disposition short-term general hospital (02) | DRG 65 ==
LOC: ER 14:59 → EH 18:33 → 3S 07-26 01:12
PROVIDERS: ADMIT Internal Medicine; ATTEND Hospitalist
DX: I63.40 Cerebral infarction due to embolism of unspecified cerebral artery (principal); Z68.42 Body mass index [BMI] 45.0-49.9, adult; G83.21 Monoplegia of upper limb affecting right dominant side; R47.81 Slurred speech; R13.10 Dysphagia, unspecified; R26.2 Difficulty in walking, not elsewhere classified; E11.9 Type 2 diabetes mellitus without complications; E66.01 Morbid (severe) obesity due to excess calories; F17.210 Nicotine dependence, cigarettes, uncomplicated; I25.10 Atherosclerotic heart disease of native coronary artery without angina pectoris; R05 Cough; R29.706 NIHSS score 6; Z95.5 Presence of coronary angioplasty implant and graft; I25.2 Old myocardial infarction; E78.00 Pure hypercholesterolemia, unspecified; Z79.4 Long term (current) use of insulin; Z79.82 Long term (current) use of aspirin; Z20.828 Contact with and (suspected) exposure to other viral communicable diseases
CPT/HCPCS: 36415; 70450; 70551; 71045; 71046; 74230; 80048; 80053; 80061; 80069; 82550; 82553; 82962; 83036; 83735; 84100; 84443; 84484; 85025; 85610; 85730; 87635; 90471; 90686; 93005; 93010; 93306; 93880; 99285; C9803; G0008; J1650; J1815; J3490